=== PATIENT | male | born 1940 | race Caucasian/White ===

== ENCOUNTER 2020-11-26 10:21 | Outpatient (CLI) | payer MEDICARE, SELFPAY ==
--- NOTE | 2020-11-26 10:42 | XR_ITS ---
WS: [id number] XR hip LT 2-3V wo/w pel* [id number] REASON FOR EXAM: CHRONIC LEFT HIP PAIN FINDINGS: Overall bone density is within normal limits. No focal bone lesion. Severe narrowing of the weightbearing portion of the hip joint with subchondral sclerosis and degener ative cystic change in the subarticular femoral head and acetabulum. Significant spurring of the acet abulum. No other significant abnormality. 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
== END 2020-11-26 10:22 | disposition home or self-care (01) ==
LOC: RAD 10:37
PROVIDERS: PCP Electrodiagnostic Medicine; Visit Provider Electrodiagnostic Medicine
DX: M25.552 Pain in left hip (principal); J42 Unspecified chronic bronchitis; J20.9 Acute bronchitis, unspecified; M12.852 Other specific arthropathies, not elsewhere classified, left hip
CPT/HCPCS: 73502

== ENCOUNTER 2020-12-26 10:54 | Outpatient (CLI) | payer MEDICARE, SELFPAY ==
--- NOTE | 2020-12-26 11:11 | XR_ITS ---
WS: [id number] Exam: XR chest 2V* [id number] Date/Time of Exam: 12/26/2020 11:13 AM Reason For Exam: DYSPNEA Comparison 06/27/2018. There is cardiac enlargement with increased pulmonary vascularity. Bibasal pleural effusions are note d. No consolidating infiltrates or pneumothorax. The mediastinum is not widened. XR/XR chest 2V* [id number] IMPRESSION: 1. Cardiac enlargement with increased pulmonary vascularity and bibasal pleural effusions. Findings suggest CHF.
[2020-12-26 12:04] LABS: Basophils % 0.3 %; Eosinophils % 0.2 %; Hematocrit 53.1 % (42.0-52.0); Hemoglobin 16.5 g/dL (11.7-16.6); Lymphocytes # 0.9 10^3/uL (0.8-4.8); Lymphocytes % 14.5 %; Mean Corpuscular HGB Conc 31.1 g/dL (30.0-36.0); Mean Corpuscular Volume 93.5 fl (80-94); Mean Platelet Volume 11.8 fL (7.4-10.4); Monocytes # 0.6 10^3/uL (0.2-0.9); Monocytes % 9.8 %; Neutrophils # 4.66 10^3/uL (1.8-7.7); Nucleated Red Blood Cells % 0 %; Platelet Count 197 10^3/cmm (130-400); Red Blood Count 5.68 10^6/uL (4.1-5.3); Red Cell Distribution Width 15.4 % (12.1-15.1); White Blood Count 6.2 10^3/uL (4.0-10.0)
[2020-12-26 12:27] LABS: Alanine Aminotransferase 13 U/L (0-41); Albumin Level 3.8 g/dL (3.5-5.2); Alkaline Phosphatase 64 IU/L (40-130); Anion Gap 9.7 (5-19); Aspartate Amino Transferase 14 U/L (0-40); Blood Urea Nitrogen 17 mg/dL (8-23); Calcium 8.5 mg/dL (8.5-10.5); Carbon Dioxide 33 mmol/L (22-29); Chloride 105 mmol/L (98-107); Globulin 2.9 g/dL (1.3-4.6); Glucose 139 mg/dL (65-115); NT Pro B Type Natriuretic Pept 2242 pg/mL (0-450); Osmolality Calculated 300 mOsm/kg (285-295); Potassium 4.7 mmol/L (3.5-5.1); Sodium 143 mmol/L (136-145); Total Bilirubin 0.7 mg/dL (0.15-1.2); Total Protein 6.7 g/dL (6.6-8.7)
[2020-12-27 15:53] LABS: Alternaria Alternata (M6) Ige <0.10 kU/L; Alternaria Class 0; Bermuda Class 0; Bermuda Grass (G2) Ige <0.10 kU/L; Cat Dander (E1) Ige <0.10 kU/L; Cat Dander Class 0; Common Ragweed (Short) (W1) Ig <0.10 kU/L; D. Farinae Class 0; Dermatophagoides Class 0/1; Dermatophagoides Farinae (D2) <0.10 kU/L; Dermatophagoides Pteronyssinus 0.12 kU/L; Dog Dander (E5) Ige <0.10 kU/L; Dog Dander Class 0; Elm (T8) Ige <0.10 kU/L; Elm Class 0; English Plantain (W9) Ige <0.10 kU/L; English Plantain Class 0; House Dust (Greer) (H1) Ige <0.10 kU/L; House Dust (Hollister- Stier) <0.10 kU/L; House Dust Class 0; Immunoglobulin E 390 kU/L (<OR=114); Immunoglobulin E 409 kU/L (<OR=114); Johnson Grass (G10) Ige <0.10 kU/L; Johnson Grass Cl 0; June Grass Class 0; June Grass(Kentucky Blue) (G8) <0.10 kU/L; Lamb'S Quarters (Goose Foot) <0.10 kU/L; Lamb'S Quarters Class 0; Maple (Box Elder) (T1) Ige <0.10 kU/L; Maple Class 0; Meadow Fescue (G4) Ige <0.10 kU/L; Meadow Fescue Class 0; Mucor Racemosus Class 0; Oak (T7) Ige <0.10 kU/L; Oak Class 0; Orchard Grass (Cocksfoot) (G3) <0.10 kU/L; Penicillium Class 0; Penicillium Notatum (M1) Ige <0.10 kU/L; Perennial Rye Grass (G5) Ige <0.10 kU/L; Perennial Rye Grass Class 0; Ragweeed Class 0; Rough Marsh Elder (W16) Ige <0.10 kU/L; Rough Marsh Elder Class 0; Sweet Vernal Class 1; Sweet Vernal Grass (G1) Ige 0.37 kU/L; Timothy Grass (G6) Ige <0.10 kU/L; Timothy Grass Class 0
[2020-12-30 18:22] LABS: Aspergillus Fumigatus, Igg Ab, 7.7 mg/L (<=102)
== END 2020-12-26 10:55 | disposition home or self-care (01) ==
LOC: RAD 11:07
PROVIDERS: PCP Electrodiagnostic Medicine; Visit Provider Internal Medicine Pulmonary Disease
DX: J40 Bronchitis, not specified as acute or chronic (principal); R06.00 Dyspnea, unspecified; R22.43 Localized swelling, mass and lump, lower limb, bilateral; R06.02 Shortness of breath; I51.7 Cardiomegaly
CPT/HCPCS: 36415; 71046; 80053; 82785; 83880; 85025; 86003

== ENCOUNTER 2022-02-17 14:24 | Emergency (ER) | payer OTHER, MEDICARE, SELFPAY ==
[2022-02-17 14:30] VITALS: PULSE 100; RESP 20; TEMP 36.7; O2SAT 92; BMI 36.5
[2022-02-17 15:11] LABS: Basophils % 0.4 %; Eosinophils % 0.3 %; Hemoglobin 14.2 g/dL (11.7-16.6); Lymphocytes # 1.6 10^3/uL (0.8-4.8); Lymphocytes % 20.9 %; Mean Corpuscular HGB Conc 32.3 g/dL (30.0-36.0); Mean Corpuscular Hemoglobin 31.7 pg (28.0-34.0); Mean Corpuscular Volume 98.2 fl (80-94); Monocytes # 0.6 10^3/uL (0.2-0.9); Monocytes % 7.5 %; Neutrophils # 5.42 10^3/uL (1.8-7.7); Neutrophils % 70.3 %; Nucleated Red Blood Cells % 0 %; Platelet Count 227 10^3/cmm (130-400); Red Blood Count 4.48 10^6/uL (4.1-5.3); Red Cell Distribution Width 12.6 % (12.1-15.1); White Blood Count 7.7 10^3/uL (4.0-10.0)
[2022-02-17 15:33] LABS: Alanine Aminotransferase 21 U/L (0-41); Albumin Level 3.8 g/dL (3.5-5.2); Alkaline Phosphatase 59 U/L (40-130); Anion Gap 17.3 (5-19); Aspartate Amino Transferase 16 U/L (0-40); Blood Urea Nitrogen 45 mg/dL (8-23); Calcium 10.4 mg/dL (8.5-10.5); Carbon Dioxide 23 mmol/L (22-29); Chloride 102 mmol/L (98-107); Globulin 3.9 g/dL (1.3-4.6); Glucose 126 mg/dL (65-115); Osmolality Calculated 295 mOsm/kg (285-295); Potassium 6.3 mmol/L (3.5-5.1); Sodium 136 mmol/L (136-145); Total Bilirubin 0.5 mg/dL (0.15-1.2); Total Protein 7.7 g/dL (6.6-8.7)
== END 2022-02-17 16:00 | disposition left against medical advice (07) ==
LOC: ER 14:36
PROVIDERS: Emergency Provider Family Medicine; PCP Electrodiagnostic Medicine
DX: Z53.21 Procedure and treatment not carried out due to patient leaving prior to being seen by health care provider (principal)
CPT/HCPCS: 36415; 80053; 85025; 99284

== ENCOUNTER 2022-02-18 13:41 | Emergency (ER) | payer OTHER, SELFPAY ==
[2022-02-18 13:50] VITALS: BP 101/59; PULSE 87; RESP 16; TEMP 36.4; O2SAT 97; BMI 36.8
--- NOTE | 2022-02-18 14:00 | ECG_ITS ---
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 Measurements Intervals [place] Rate: 79 P: [place]: QRS: 116 QRSD: 87 T: 16 QT: 345 QTc: 396 Interpretive Statements ATRIAL FIBRILLATION POSSIBLE RIGHT VENTRICULAR HYPERTROPHY [SOME/ALL OF: PROMINENT R IN V1, LATE TRANSITION, RAD, PAULO, SSS] SEPTAL MYOCARDIAL INFARCTION , OF INDETERMINATE AGE [40+ ms Q WAVE IN V1/V2] No previous ECG available for comparison Electronically Signed On 02-18-2022 22:43:37 CDT by Mahnaz Spears M.D. [id number]
[2022-02-18 14:16] VITALS: BP 132/68; PULSE 85; RESP 16; O2SAT 98
[2022-02-18 14:35] LABS: Basophils % 0.2 %; Eosinophils % 0.1 %; Hematocrit 42.2 % (42.0-52.0); Hemoglobin 13.8 g/dL (11.7-16.6); Lymphocytes # 1.4 10^3/uL (0.8-4.8); Mean Corpuscular HGB Conc 32.7 g/dL (30.0-36.0); Mean Corpuscular Hemoglobin 32.1 pg (28.0-34.0); Mean Corpuscular Volume 98.1 fl (80-94); Mean Platelet Volume 12.1 fL (7.4-10.4); Monocytes # 0.7 10^3/uL (0.2-0.9); Monocytes % 7.5 %; Neutrophils # 6.89 10^3/uL (1.8-7.7); Neutrophils % 76.6 %; Nucleated Red Blood Cells % 0 %; Platelet Count 228 10^3/cmm (130-400); Red Cell Distribution Width 12.7 % (12.1-15.1)
--- NOTE | 2022-02-18 14:38 | ED_ITS ---
HPI - Recheck/Abnormal Lab/Rx General: Chief Complaint: Recheck/Abnormal Lab/Rx Stated Complaint: High Potassium Time Seen by Provider: 02/18/22 14:12 Source: patient Mode of arrival: ambulatory Limitations: other (hard of hearing) History of Present Illness: See nursing assessment. Patient states that he was told to come back to the hospital to get his lab redrawn. Reportedly [facility] stated that his potassium was 5.7 and was sent to the emergency room yesterday. He had blood redrawn yesterday and had a potassium value of around 6. Patient left before knowing the results and was told to come back to the hospital for recheck. Patient arrived this afternoon for recheck. Patient denies any medical problems. He states he feels fine has no complaints of pain or shortness of breath. Denies any chest pain. Denies any fatigue. He is hard of hearing and forgot his hearing aids. Review of Systems Const: Denies: fever(s) or chills Eyes: Denies: change in vision ENMT: Denies: throat pain Card: Denies: chest pain or palpitations Resp: Denies: dyspnea or wheezing GI: Denies: abdominal pain, nausea or vomiting : Denies: flank pain Musc: Denies: neck pain or back pain Skin/Breast: Denies: rash or pruritus Neuro: Denies: headache(s) or numbness in extremities Psych: Denies: anxiety Alvaro/Lymph: Denies: enlarged lymph nodes [facility] ED PFSH: Social History Smoking and tobacco status: never smoked Second hand smoke exposure: Yes (smoked marijuana a few times in service) Alcohol intake: former Physical Exam Const: COMMON NORMALS: no acute distress, patient oriented x3, alert and well nourished GENERAL APPEARANCE: cooperative HENMT: COMMON NORMALS: normocephalic and atraumatic HEAD & SCALP: normocephalic and atraumatic Eye: COMMON NORMALS: EOMs intact bilaterally Neck/C-Spine: COMMON NORMALS: full ROM, no lymphadenopathy, supple and no JVD Lymph: LYMPHATIC: no lymphadenopathy noted Chest: COMMONS NORMALS: normal inspection of the chest and normal palpation of entire chest wall Resp: COMMON NORMALS: normal respiratory effort, No retractions, No use of accessory muscles and clear to auscultation bilaterally AUSCULTATION: clear to auscultation bilaterally Cardio: COMMON NORMALS: no JVD, regular rate, regular rhythm and Peripheral pulses 2+ throughout RATE: regular rate RHYTHM: regular rhythm PERIPHERAL PULSES: Peripheral pulses 2+ throughout GI: COMMON NORMALS: Normal to inspection, nondistended, normoactive bowel sounds present, Soft to palpation and non-tender PALPATION: Yes Soft to palpation OTHER: Obese : COMMON NORMALS: Yes no CVA tenderness BLADDER/KIDNEY EXAM: Yes no CVA tenderness Back/Pelvis: COMMON NORMALS: no CVA tenderness Extremity: COMMON NORMALS: normal to inspection and full ROM Neuro: COMMON NORMALS: patient oriented x3, CN's II-XII intact bilaterally, moves all extremities, no focal motor deficits and no sensory deficits noted SENSORIUM/ORIENTATION: Yes alert Psych: COMMON NORMALS: mental status grossly normal, Normal thought process present, cooperative, normal affect and speech normal SPEECH: Yes normal speech THOUGHT PROCESS: Normal thought process present Skin: COMMON NORMALS: no rashes or lesions noted GENERAL SKIN EXAM: no rashes or lesions noted Course Vital Signs: Vital signs: Vital Signs Temperature 97.6 F 02/18/22 13:50 Pulse Rate 85 02/18/22 14:16 Respiratory Rate 16 02/18/22 14:16 Blood Pressure 132/68 02/18/22 14:16 Pulse Oximetry 98 02/18/22 14:16 Oxygen Delivery Me thod 02/18/22 13:50 MDM - Recheck/Abnormal Lab/Rx Medical Decision Making Hyperkalemia. Patient states he was taking potassium supplements up until 2 days ago when he was told to discontinue these. He did have elevated BUN and creatinine yesterday which is different from his December 2020 lab work where he had normal renal function. Discussed with patient results of his laboratory values. Will have patient hold his spironolactone for 2 days. I encouraged him to drink water for the next couple days. Lab Data : 02/18/22 14:27 02/18/22 14:27 Laboratory Results WBC 9.0 10^3/uL (4.0-10.0) 02/18/22 14:27 RBC 4.30 10^6/uL (4.1-5.3) 02/18/22 14:27 Hgb 13.8 g/dL (11.7-16.6) 02/18/22 14: Hct 42.2 % (42.0-52.0) 02/18/22 14: MCV 98.1 fl (80-94) H 02/18/22 14: MCH 32.1 pg (28.0-34.0) 02/18/22 14: MCHC 32.7 g/dL (30.0-36.0) 02/18/22 14: RDW 12.7 % (12.1-15.1) 02/18/22 14: Plt Count 228 10^3/cmm (130-400) 02/18/22 14: MPV 12.1 fL (7.4-10.4) H 02/18/22 14: Neut % (Auto) 76.6 % 02/18/22 14: Lymph % (Auto) 15.0 % 02/18/22 14: [place] % (Auto) 7.5 % 02/18/22 14: Eos % (Auto) 0.1 % 02/18/22 14: Baso % (Auto) 0.2 % 02/18/22 14: Neut # (Auto) 6.89 10^3/uL (1.8-7.7) 02/18/22 14: Lymph # (Auto) 1.4 10^3/uL (0.8-4.8) 02/18/22 14: [place] # (Auto) 0.7 10^3/uL (0.2-0.9) 02/18/22 14: Eos # (Auto) 0.0 10^3/uL (0.0-0.8) 02/18/22 14: Baso # (Auto) 0.0 10^3/uL (0.0-0.1) 02/18/22 14: Nucleated RBC % (auto) 0 % 02/18/22: Nucleated RBCs # 0.0 /100WBC 02/18/22 14:27 Sodium 136 mmol/L (136-145) 02/18/22 14: Potassium 5.3 mmol/L (3.5-5.1) H 02/18/22 14: Chloride 101 mmol/L (98-107) 02/18/22 14:27 Carbon Dioxide 23 mmol/L (22-29) 02/18/22 14:27 Anion Gap 17.3 (5-19) 02/18/22 14:27 BUN 47 mg/dL (8-23) H 02/18/22 14:27 Creatinine 1.7 mg/dL (0.7-1.2) H 02/18/22 14:27 GFR Calculation Not Reportable 02/18/22 14:27 Glucose 128 mg/dL (65-115) H 02/18/22 14:27 Calculated Osmolality 296 mOsm/kg (285-295) H 02/18/22 14:27 Calcium 10.0 mg/dL (8.5-10.5) 02/18/22 14:27 EKG Data EKG 1: I personally reviewed and interpreted this EKG as follows: EKG interpretation date: 02/18/22 EKG interpretation time: 14:20 Interpretation: EKG shows atrial fibrillation with rate controlled at 79. Rightward axis. Nonspecific ST-T changes. Normal QRS. Impression atrial fibrillation with rate control. Discharge Plan Discharge Patient Disposition: Home Clinical Impression: Chronic hyperkalemia Condition: Stable Prescriptions: No Action albuterol sulfate [Ventolin HFA] 90 mcg/actuation HFA aerosol inhaler 2 puff inhalation Q6H PRN (Reason: Shortness Of Breath Or Wheezing) metoprolol tartrate 50 mg tablet 50 mg PO BID tizanidine 4 mg tablet 4 mg PO TID PRN (Reason: Muscle Spasm) Saccharomyces boulardii [Daily Probiotic (S. boulardii)] 250 mg capsule 250 mg PO BID lovastatin 40 mg tablet 40 mg PO DAILY finasteride 5 mg tablet 5 mg PO DAILY budesonide-formoterol [Symbicort] 80-4.5 mcg/actuation HFA aerosol inhaler 2 puff inhalation BID Qty: 10.2 3RF furosemide 40 mg tablet 40 mg PO DAILY Aspir-81 81 mg Tablet,Delayed Release (Dr/Ec) 81 mg PO DAILY amlodipine 10 mg tablet 10 mg PO DAILY valsartan 320 mg tablet 320 mg PO DAILY naproxen 500 mg Tablet 500 mg PO BID PRN (Reason: Pain) spironolactone 50 mg tablet 50 mg PO DAILY Discharge Orders: Discharge ED (Routine); Ordered 02/18/22 Ordered By: Fabrice Ruiz Referrals: Thad Zaragoza, [Primary Care Provider] - 1-3 days Discharge Diet: Advance as tolerated Discharge Activity: Resume usual activity Patient Instructions: Chronic Kidney Disease (ED), Hyperkalemia (ED) Activity Restrictions/Additional Instructions: Your potassium was only slightly elevated. You will need to drink more water for the next 2 days. Hold the spironolactone medication for 2 days. Follow-up with your family doctor later this week for recheck of your potassium level. Avoid any potassium supplements or high potassium foods. Coding Level of Care Code ED Oil Well Driller for Chg Fwd Exam Comprehensive
[2022-02-18 14:59] LABS: Anion Gap 17.3 (5-19); Blood Urea Nitrogen 47 mg/dL (8-23); Carbon Dioxide 23 mmol/L (22-29); Chloride 101 mmol/L (98-107); Glucose 128 mg/dL (65-115); Osmolality Calculated 296 mOsm/kg (285-295); Potassium 5.3 mmol/L (3.5-5.1); Sodium 136 mmol/L (136-145)
--- NOTE | 2022-02-18 15:26 | PC.PHAR ---
PT HARD OF HEARING- UNABLE TO VERIFY MEDS- VERIFIED USING [facility], EXTERNAL MED LIST AND CALLING [facility]- PT BROUGHT IN NOTE STATING TO STOP TAKING POTASSIUM AND LOSARTAN, WAS UNABLE TO FIND THAT HE EVER HAD LOSARTAN
[2022-02-18 15:55] VITALS: BP 132/70; PULSE 77
== END 2022-02-18 15:57 | disposition home or self-care (01) ==
PROVIDERS: Emergency Medicine; Emergency Provider Family Medicine; PCP Electrodiagnostic Medicine
DX: E87.5 Hyperkalemia (principal); Z79.82 Long term (current) use of aspirin
CPT/HCPCS: 80048; 85025; 93005; 99284

== ENCOUNTER → 2022-04-08 12:31 | Outpatient (BNVA) | payer OTHER, SELFPAY | PROVIDERS: PCP Family Medicine; Visit Provider Internal Medicine | DX: R06.00 Dyspnea, unspecified (principal); I48.91 Unspecified atrial fibrillation; R22.43 Localized swelling, mass and lump, lower limb, bilateral; I27.20 Pulmonary hypertension, unspecified; I35.0 Nonrheumatic aortic (valve) stenosis | CPT/HCPCS: 80048; 83880; 85025; 99214 ==

== ENCOUNTER → 2022-05-05 09:57 | Outpatient (BNVA) | payer OTHER, SELFPAY | PROVIDERS: PCP Family Medicine; Visit Provider Orthopaedic Surgery | DX: M25.552 Pain in left hip (principal) | CPT/HCPCS: 73502; 99213 ==

== ENCOUNTER 2022-05-11 12:58 | Outpatient (CLI) | payer OTHER, SELFPAY ==
--- NOTE | 2022-05-11 13:45 | USCV_ITS ---
Yuri Joe Age: 82 Gender: M : 1940 Exam Date: 05/11/2022 13:53 Ordering Phys: Joey Courtney M.D ([email or web address]) Technologist: George Ying Exam Location: [facility] [place] Indication: dyspnea BP: 84 / 50 HR: Rhythm: Sinus Technical Quality: Technically difficult study MEASUREMENTS (Male / Female) Normal Values 2D ECHO LV Ejection Fraction MOD 2C 64.5 % LV Ejection Fraction 2C AL 63.2 % LA Diameter 5.1 cm LA Width 3.9 cm LA Height 5.9 cm RA Width 4.1 cm RA Height 6.3 cm IVC Diameter 1.5 cm M-MODE MV E Point Septal Separation 0.6 cm DOPPLER AV Peak Velocity 428.4 cm/s LVOT Peak Velocity 78.0 cm/s MV Peak Velocity 97.0 cm/s MV Area PHT 6.3 cm squared Mitral E to A Ratio 2.2 MV E' Velocity 41.0 cm/s Mitral E to MV E' Ratio 6.3 Mitral E to LV E' Lateral Ratio 7.2 Mitral E to LV E' Septal Ratio 5.7 TR Peak Velocity 408.5 cm/s TR Peak Gradient 66.7 mmHg TR Mean Velocity 331.1 cm/s TR Mean Gradient 45.4 mmHg TR Velocity Time Integral 100.7 cm Right Atrial Pressure 3.0 mmHg Pulmonary Artery Systolic Pressu 69.7 mmHg PV Peak Velocity 101.0 cm/s RV Acceleration Time 0.1 s RV Ejection Time 0.4 s RV AcT/ET 0.1 FINDINGS Left Ventricle Technically limited quality echocardiogram because of poor ultrasonic windows. Grossly LV systolic function is normal. Regional wall motion abnormalities cannot be assessed because of poor ultrasonic windows. Right Ventricle Grossly normal Right Atrium normal in size Left Atrium Dilated Mitral Valve Grossly normal. Mild mitral regurgitation. Aortic Valve Not well visualized. Mean gradient across aortic valve is 35mmHg. This is consistent with moderate aortic stenosis. Tricuspid Valve Not well visualized Pulmonic Valve Not visualized Pericardium Grossly normal Aorta Normal in size IVC Not visualized CONCLUSIONS Technically limited quality echocardiogram because of poor ultrasonic windows. Grossly LV systolic function is normal. Regional wall motion abnormalities cannot be assessed because of poor ultrasonic windows. Moderate aortic stenosis with a mean gradient across aortic valve of 35 mmHg Mild mitral regurgitation Valvular structures are not well-visualized No comparison studies are available. Will recommend limited echo with contrast to better assess LV systolic function and regional wall motion abnormalities. Joey Courtney MD (Electronically Signed) Final Date: 18 May 2022 11:02 S
== END 2022-05-11 12:59 | disposition home or self-care (01) ==
LOC: RAD 13:02
PROVIDERS: PCP Family Medicine; Visit Provider Internal Medicine
DX: R06.00 Dyspnea, unspecified (principal); I35.0 Nonrheumatic aortic (valve) stenosis; I34.0 Nonrheumatic mitral (valve) insufficiency
CPT/HCPCS: 93306

== ENCOUNTER → 2022-06-23 08:33 | Outpatient (BNVA) | payer OTHER, SELFPAY | PROVIDERS: PCP Family Medicine; Visit Provider Anesthesiology Pain Medicine | DX: M79.604 Pain in right leg; M79.605 Pain in left leg; M25.552 Pain in left hip | CPT/HCPCS: 99204 ==

== ENCOUNTER 2022-09-30 11:52 | Inpatient (IN) | payer OTHER, MEDICARE, SELFPAY ==
[2022-09-30] VITALS (7 sets, daily range): BP systolic 105–127; BP diastolic 70–81; PULSE 55–109; RESP 16–22; TEMP 36.6–36.7; O2SAT 90–93; BMI 28.1
--- NOTE | 2022-09-30 12:02 | ECG_ITS ---
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 Measurements Intervals [place] Rate: 109 P: 0 ME: 0 QRS: 130 QRSD: 93 T: 33 QT: 331 QTc: 446 Interpretive Statements ATRIAL FIBRILLATION WITH RAPID VENTRICULAR RESPONSE INCOMPLETE RIGHT BUNDLE BRANCH BLOCK [90+ ms QRS DURATION, TERMINAL R IN V1/V2, 40+ ms S IN I/aVL/V4/V5/V6] POSSIBLE RIGHT VENTRICULAR HYPERTROPHY [SOME/ALL OF: PROMINENT R IN V1, LATE TRANSITION, RAD, PAULO, SSS] Compared to ECG 02/18/2022 14:15:42 Incomplete right bundle-branch block now present Myocardial infarct finding no longer present Electronically Signed On 10-01-2022 7:23:48 CDT by Josephine Barrett M.D. [email or web address]eliermer[email or web address].[email or web address]/OM/[id number]
--- NOTE | 2022-09-30 12:36 | XR_ITS ---
WS: [id number] Exam: XR chest 1V portable [id number] Date/Time of Exam: 09/30/2022 12:39 PM Reason For Exam: sob Comparison 12/26/2020. The lungs are fully expanded. There is atelectasis and/or infiltrate in the right lower lobe. There i s chronic pleural thickening in the left base. The heart is enlarged but unchanged in size. The upper lung zones are clear. No pneumothorax. The mediastinum is normal in contour. Bony structures are int act. XR/XR chest 1V portable [id number] IMPRESSION: 1. Atelectasis and/or infiltrate in the right base. Right-sided pleural thicken ing. 2. Chronic pleural thickening in the left lung base. 3. Cardiac enlargement unchanged.
--- NOTE | 2022-09-30 12:39 | ED_ITS ---
HPI - SOB/Dyspnea General: Chief Complaint: Shortness of Breath/Dyspnea Stated Complaint: [facility] sent for low BP and O2 Time Seen by Provider: 09/30/22 12:18 Source: patient and family Mode of arrival: ambulatory Limitations: no limitations History of Present Illness: HPI Narrative: This patient was brought to the emergency department by his daughter. They were at the [facility] this morning and referred to the emergency department. Over the last couple of days he has had increasing shortness of breath and a bit of confusion according to daughter. He states that he is more short of breath than usual and even with limited activity he gets short winded. Denies any concomit ant chest pain or fevers. He has had a dry cough. Apparently had the symptoms on Wednesday and was seen and not found to have anything of concern on clinical exam and recommended to take Zyrtec. He is a non-smoker and lives alone. He is usually capable of taking care of his ADLs and is I ADLs. He denies any cardiac history however review of his chart reveals that he has a history of atrial fibrillation. He states he is taking his medications as prescribed. Currently wears oxygen at bedtime but cannot tell me why he does so. Daughter also reports he has bilateral leg swelling but has had that for a prolonged period of time. MD elicited complaint: shortness of breath and cough Severity: moderate Associated symptoms: Reports cough; Deny abdominal pain, chest pain, extremity pain, fever(s), nausea, palpitations or vomiting Treatment prior to arrival: none Review of Systems Const: Denies: fever(s), chills or body aches Eyes: Denies: change in vision ENMT: Denies: odynophagia, nasal discharge or nasal congestion Card: Reports: dyspnea on exertion; Denies: chest pain or palpitations Resp: Reports: dyspnea and non-productive cough; Denies: wheezing GI: Denies: abdominal pain, nausea, vomiting or diarrhea : Denies: flank pain, difficulty urinating or dysuria Musc: Reports: extremity swelling; Denies: neck pain, back pain or extremity pain Skin/Breast: Denies: rash or pruritus Neuro: Denies: headache(s), numbness in extremities or weakness in extremities Alvaro/Lymph: Reports: easy bruising [facility] ED PFSH: Social History Smoking and tobacco status: never smoked Second hand smoke exposure: No Alcohol intake: current Alcohol intake frequency: holidays/special occasions only Alcohol type: wine Substance/Drug Use: never Physical Exam Narrative: EXAM NARRATIVE: He is alert and has an intermittent cough during the evaluation. He answers most questions but does have some limited responses to other questions. Const: COMMON NORMALS: no acute distress and alert GENERAL APPEARANCE: cooperative NUTRITIONAL APPEARANCE: overweight ORIENTATION/CONSCIOUSNESS: Yes awake, Yes oriented to person and Yes oriented to place HENMT: COMMON NORMALS: normocephalic, Normal nasal mucous membranes and turbinates present, moist oral mucous membranes and oropharynx normal HEAD & SCALP: normocephalic NOSE: Normal nasal mucous membranes and turbinates present Eye: COMMON NORMALS: Equal, round and reactive pupils present, EOMs intact bilaterally, conjunctivae normal and no scleral icterus CONJUNCTIVA: Yes conjunctivae normal PUPIL: Yes Equal, round and reactive pupils present Neck/C-Spine: COMMON NORMALS: full ROM, no lymphadenopathy, no JVD and No carotid bruits Chest: COMMONS NORMALS: normal inspection of the chest Resp: COMMON NORMALS: normal respiratory effort, No retractions and No use of accessory muscles AUSCULTATION: crackles and rhonchi Cardio: COMMON NORMALS: no JVD RHYTHM: abnormal rhythm irregularly irregular HEART SOUNDS: Murmur heart sound present (3/) systolic GI: COMMON NORMALS: Normal to inspection, nondistended, normoactive bowel sounds present, Soft to palpation and non-tender INSPECTION: Yes central obesity PALPATION: Yes Soft to palpation : COMMON NORMALS: Yes no CVA tenderness BLADDER/KIDNEY EXAM: Yes no CVA tenderness Back/Pelvis: COMMON NORMALS: no CVA tenderness, thoracic and lumbar spine normal to inspection, no thoracic nor lumbar tenderness and thoraco-lumbar ROM normal Extremity: COMMON NORMALS: normal to inspection, full ROM and no calf tenderness NARRATIVE EXTREMITY EXAM: Bilateral pedal edema to mid lower legs. Neuro: COMMON NORMALS: moves all extremities, no focal motor deficits and no sensory deficits noted SENSORIUM/ORIENTATION: Yes alert, Yes oriented to person and Yes oriented to place Psych: COMMON NORMALS: mental status grossly normal Skin: COMMON NORMALS: no rashes or lesions noted, no wounds and turgor normal GENERAL SKIN EXAM: no rashes or lesions noted and turgor normal Course Reevaluation(s): Reevaluation #1: Discussed current findings with patient and daughter. Initially the patient was somewhat reluctant to be admitted to the hospital but we are eventually convinced him to stay. Appears to have right lower lobe pneumonia that is probably precipitated and made his atrial fib and chronic heart failure worse as well with a slight elevation in troponin concomitant with that. No evidence of ACS or ongoing ischemia at this time. Time: 15:07 Consultations: Consultation #1: Discussed with Dr. Trejo who agreed to the admission. He asked that I get a noncontrast CT to better delineate his pulmonology pathology. Time: 15:11 Vital Signs: Vital signs: Vital Signs Temperature 97.9 F 09/30/22 11:56 Pulse Rate 94 09/30/22 14:19 Respiratory Rate 18 09/30/22 14:19 Blood Pressure 123/81 09/30/22 14:19 Pulse Oximetry 93 09/30/22 14:19 Oxygen Delivery Me thod Nasal Cannula 09/30/22 14:19 Oxygen Flow Rate 4 09/30/22 14:19 MDM - SOB/Dyspnea Medical Decision Making 82-year-old gentleman brought by his daughter with a history of several days of cough and intermittent confusion that is collaborated by his daughter. He has a history of atrial fibs as well as mild congestive heart failure and apparently has medications consistent with those diagnoses. He apparently also wears nighttime oxygen for unknown reason. Clinical examination revealed him to be alert but a little bit confused as to current events. O2 saturation was noted per nursing notes and corrects easily with supplemental O2. His chest reveals bilateral rhonchi consistent with possible pulmonary infection versus CHF. Work-up ensued that revealed right lower lobe infiltrate with elevation in proBNP as well as a slight elevation of troponin consistent with likely due to his acute illness putting additional strain on his cardiovascular system. Unlikely to be ACS PE or other pulmonary condition at this time. Plan will be to admit for IV antibiotics, echocardiogram potentially and other testing to better delineate his cardiovascular status. Patient initially was reluctant but eventually acquiesced and agreed to admission. Medical Records I reviewed the patient's medical records. Lab Data I reviewed the patient's lab results. 09/30/22 12:18 09/30/22 12:18 Labs/Radiology: Radiology Impressions Chest X-Ray 09/30/22 12:36 IMPRESSION: 1. Atelectasis and/or infiltrate in the right base. Right-sided pleural thickening. 2. Chronic pleural thickening in the left lung base. 3. Cardiac enlargement unchanged. Laboratory Results WBC 11.2 10^3/uL (4.0-10.0) H 09/30/22 12:18 RBC 4.63 10^6/uL (4.1-5.3) 09/30/22 12:18 Hgb 13.6 g/dL (11.7-16.6) 09/30/22 12:18 Hct 42.7 % (42.0-52.0) 09/30/22 12:18 MCV 92.2 fl (80-94) 09/30/22 12:18 MCH 29.4 pg (28.0-34.0) 09/30/22 12:18 MCHC 31.9 g/dL (30.0-36.0) 09/30/22 12:18 RDW 13.6 % (12.1-15.1) 09/30/22 12:18 Plt Count 237 10^3/cmm (130-400) 09/30/22 12:18 MPV 12.1 fL (7.4-10.4) H 09/30/22 12:18 Neut % (Auto) 84.3 % 09/30/22 12:18 Lymph % (Auto) 6.7 % 09/30/22 12:18 [place] % (Auto) 7.1 % 09/30/22 12:18 Eos % (Auto) 0.0 % 09/30/22 12:18 Baso % (Auto) 0.3 % 09/30/22 12:18 Neut # (Auto) 9.45 10^3/uL (1.8-7.7) H 09/30/22 12:18 Lymph # (Auto) 0.8 10^3/uL (0.8-4.8) 09/30/22 12:18 [place] # (Auto) 0.8 10^3/uL (0.2-0.9) 09/30/22 12:18 Eos # (Auto) 0.0 10^3/uL (0.0-0.8) 09/30/22 12:18 Baso # (Auto) 0.0 10^3/uL (0.0-0.1) 09/30/22 12:18 Nucleated RBC % (auto) 0 % 09/30/22 12:18 Nucleated RBCs # 0.0 /100WBC 09/30/22 12:18 Sodium 136 mmol/L (136-145) 09/30/22 12:18 Potassium 4.7 mmol/L (3.5-5.1) 09/30/22 12:18 Chloride 100 mmol/L (98-107) 09/30/22 12:18 Carbon Dioxide 28 mmol/L (22-29) 09/30/22 12:18 Anion Gap 12.7 (5-19) 09/30/22 12:18 BUN 24 mg/dL (8-23) H 09/30/22 12:18 Creatinine 1.1 mg/dL (0.7-1.2) 09/30/22 12:18 GFR Calculation Not Reportable 09/30/22 12:18 Glucose 123 mg/dL (65-115) H 09/30/22 12:18 Calculated Osmolality 287 mOsm/kg (285-295) 09/30/22 12:18 Calcium 8.9 mg/dL (8.5-10.5) 09/30/22 12:18 Total Bilirubin 0.8 mg/dL (0.15-1.2) 09/30/22 12:18 AST 31 U/L (0-40) 09/30/22 12:18 ALT 38 U/L (0-41) 09/30/22 12:18 Alkaline Phosphatase 51 U/L (40-130) 09/30/22 12:18 Troponin T Baseline 35 ng/L (0-15) H 09/30/22 12:18 NT-Pro-B Natriuret Pep 2875 pg/mL (0-450) H 09/30/22 12:18 Total Protein 7.0 g/dL (6.6-8.7) 09/30/22 12:18 Albumin 3.2 g/dL (3.5-5.2) L 09/30/22 12:18 Globulin 3.8 g/dL (1.3-4.6) 09/30/22 12:18 TSH 1.36 uIU/mL (0.27-4.20) 09/30/22 12:18 SARS-CoV-2 Ag (Rapid) negative (Negative) 09/30/22 12:48 EKG Data EKG 1: I personally reviewed and interpreted this EKG as follows: Interpretation: Contemporaneous review of resting EKG reveals ventricular rate of 109 bpm consistent with atrial fibrillation with a rapid ventricular response. QRS duration is normal. Corrected QT intervals normal. No acute ST-T wave changes noted at this time. Discharge Plan Discharge Patient Disposition: Admitted As Inpatient Clinical Impression: Right lower lobe pneumonia, Atrial fibrillation, Congestive heart failure Condition: Stable Prescriptions: No Action finasteride 5 mg tablet 5 mg PO DAILY Claritin 10 mg Tablet 10 mg PO DAILY Eliquis 5 mg tablet 5 mg PO QAM furosemide 40 mg tablet 20 - 40 mg PO DAILY spironolactone 50 mg tablet 50 mg PO DAILY Referrals: Nell Mendez MD [Primary Care Provider] - Coding Level of Care Code ED Automobile Service Advisor for Chg Rylee
[2022-09-30 12:52] LABS: Basophils % 0.3 %; Hematocrit 42.7 % (42.0-52.0); Hemoglobin 13.6 g/dL (11.7-16.6); Lymphocytes # 0.8 10^3/uL (0.8-4.8); Lymphocytes % 6.7 %; Mean Corpuscular HGB Conc 31.9 g/dL (30.0-36.0); Mean Corpuscular Hemoglobin 29.4 pg (28.0-34.0); Mean Corpuscular Volume 92.2 fl (80-94); Mean Platelet Volume 12.1 fL (7.4-10.4); Monocytes # 0.8 10^3/uL (0.2-0.9); Monocytes % 7.1 %; Neutrophils # 9.45 10^3/uL (1.8-7.7); Neutrophils % 84.3 %; Nucleated Red Blood Cells % 0 %; Platelet Count 237 10^3/cmm (130-400); Red Blood Count 4.63 10^6/uL (4.1-5.3); Red Cell Distribution Width 13.6 % (12.1-15.1); White Blood Count 11.2 10^3/uL (4.0-10.0)
[2022-09-30] MEDS: FUROsemide 10 mg/mL SDV 4mL 40 MG IVP (12:55)
[2022-09-30 13:03] LABS: Troponin(5th) Baseline 35 ng/L (0-15)
[2022-09-30 13:11] LABS: Alanine Aminotransferase 38 U/L (0-41); Albumin Level 3.2 g/dL (3.5-5.2); Alkaline Phosphatase 51 U/L (40-130); Anion Gap 12.7 (5-19); Aspartate Amino Transferase 31 U/L (0-40); Blood Urea Nitrogen 24 mg/dL (8-23); Calcium 8.9 mg/dL (8.5-10.5); Carbon Dioxide 28 mmol/L (22-29); Chloride 100 mmol/L (98-107); Globulin 3.8 g/dL (1.3-4.6); Glucose 123 mg/dL (65-115); NT Pro B Type Natriuretic Pept 2875 pg/mL (0-450); Osmolality Calculated 287 mOsm/kg (285-295); Potassium 4.7 mmol/L (3.5-5.1); Sodium 136 mmol/L (136-145); Thyroid Stimulating Hormone 1.36 uIU/mL (0.27-4.20); Total Bilirubin 0.8 mg/dL (0.15-1.2)
[2022-09-30 13:30] LABS: SARS Covid-2 Antigen negative (Negative)
--- NOTE | 2022-09-30 14:37 | ECG_ITS ---
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 Measurements Intervals [place] Rate: 116 P: 0 RI: 0 QRS: 133 QRSD: 93 T: 56 QT: 305 QTc: 425 Interpretive Statements ATRIAL FIBRILLATION WITH RAPID VENTRICULAR RESPONSE INCOMPLETE RIGHT BUNDLE BRANCH BLOCK [90+ ms QRS DURATION, TERMINAL R IN V1/V2, 40+ ms S IN I/aVL/V4/V5/V6] RIGHT VENTRICULAR HYPERTROPHY [SOME/ALL OF: PROMINENT R IN V1, LATE TRANSITION, RAD, PAULO, SSS] Compared to ECG 09/30/2022 12:26:39 No significant changes Electronically Signed On 10-01-2022 7:26:26 CDT by Josephine Barrett M.D. [id number]
--- NOTE | 2022-09-30 14:53 | PC.PHAR ---
pt and pts family states the pt takes care of his own medications-pt had one pill of lasix 40mg in a bottle of finasteride pt also had alot of lasix 20mg tabs in the finasteride bottle- [facility] last filled 40mg tabs on 01/13/22 but states never filled 20mg for the tabs- medication not on [facility] med list as a va med but pt states takes daily- requested medication be entered even tho medication wasnt in original medication bottles-pt brought in medication bottles for eliquis 5mg bid 04/14/22 and 2.5mg bid dated 03/18/[address] changed to 5mg po qam but had no bottle with those directions-pt states he is still taking finasteride 5mg daily rx bottle was dated 04/27/22 90d/s pt had 2 tabs in the bottle-pt states he is no longer taking amlodipine 10mg daily rx bottle dated 07/13/22 90d/s-pts va med list had crestor 20mg take 10mg qpm pt states he is not taking-pt states he no longer has any kind of inhalers-ext med history shows last filled 12/27/20 symbicort 80-4.5mg 2p bid and ventolin hfa 2p q6h prn filled 04/23/22-pts va med list has zinc oxide ointment pt states he isnt using any creams-notes are made in the pharmacy comments
[2022-09-30 15:11] LABS: Troponin 5 2HR 37.77 ng/L (0-15)
--- NOTE | 2022-09-30 15:14 | CTR_ITS ---
PROCEDURE INFORMATION: Exam: CT Chest Without Contrast; Diagnostic Exam date and time: 09/30/2022 3:48 PM Age: 82 years old Clinical indication: Other: Rll infiltrative process; Additional info: Right lower lobe infiltrative process TECHNIQUE: Imaging protocol: Diagnostic computed tomography of the chest without contrast. Radiation optimization: All CT scans at this facility use at least one of these dose optimization techniques: automated exposure control; mA and/or kV adjustment per patient size (includes targeted exams where dose is matched to clinical indication); or iterative reconstruction. REPORTING DATA: Count of CT and Cardiac NM exams in prior 12 months: This patient has received 0 known CTs and 0 known cardiac nuclear medicine studies in the 12 months prior to the current study. COMPARISON: CR XR chest 1V portable [id number] 09/30/2022 12:42 PM RADIATION DOSE METRICS: Total DLP (mGy-cm): 653.57 FINDINGS: Limitations: Study is significantly limited due to motion artifact most pronounced within the lower lung zones. Lungs: There is prominent pericardial in subpleural fat at the lung bases more pronounced on the right contributing to scattered subsegmental atelectasis at the right lung there are scattered indistinct interstitial and peribronchial micronodular opacities lower lobes more pronounced on the right some which is likely infectious secondary to bronchiolitis. There is also a 2.5 x 1.5 cm irregular lobulated soft tissue density at the right lung base more nonspecific in may represent rounded atelectasis, rounded pneumonia or neoplasm. Upper lung zones are relatively clear. Pleural spaces: Unremarkable. No pneumothorax. No pleural effusion. Heart: Heart is at least mildly enlarged. Moderate calcification of coronary arteries. No significant pericardial effusion. Lymph nodes: Scattered small mediastinal lymph nodes measuring up to 1.4 cm, nonspecific. Vasculature: Scattered atherosclerotic changes of the thoracic aorta. No aortic aneurysm. Bones/joints: Diffuse bony changes of the thoracic spine with smooth bridging syndesmophytes consistent with ankylosing spondylitis. Deformity of the right left ribcage is secondary to old healed fractures. Soft tissues: Right lateral abdominal wall hernia within the upper abdomen containing bowel loops partially visualized. Rounded circumscribed soft tissue density partially visualized and may be arising from the right kidney difficult to further characterize but not consistent with a simple cyst. CT/CT chest wo con [id number] IMPRESSION: 1. Bibasilar subsegmental atelectasis more pronounced on the right in part secondary to prominent subpleural and epicardial fat. 2. Scattered lower lobe interstitial infiltrates more pronounced on the right likely infectious in nature. 3. 2.5 x 1.5 cm lobulated soft tissue density right lung base, nonspecific as discussed above. Recommend a repeat CT chest in 4-6 weeks for further assessment. 4. Small right renal lesion partially visualized difficult to further characterize and better assessed on contrast CT exam of the abdomen or renal ultrasound. 5. Additional nonemergent findings as above.
[2022-09-30 15:15] LABS: Troponin 5 2HR Delta 2.77 ABS# (0-10)
--- NOTE | 2022-09-30 15:39 | PM.HP ---
Providers/Chief Complaint Primary Care Provider: Nell Mendez MD Chief Complaint: [facility] sent for low BP and O2 History of Present Illness Yuri Joe is a 82 year old male with past medical history of atrial fibrillation on chronic anticoagulation with Eliquis, moderate aortic stenosis, moderate pulmonary hypertension with RV dysfunction, hypertension presents to the ER today from [place] clinic for difficulty in breathing, dyspnea on exertion along with cough which has been getting worse since Wednesday. Today is Wednesday. He has been having subjective feeling of fever. Usually patient is able to take care of his ADLs by himself but currently is not able to do so because of difficulty in breathing. Patient is hard of hearing. Denies any nausea, vomiting, headache or any sick contacts. Review of Systems General: Reports: 10 or more systems reviewed and unremarkable except in HPI and below Const: Denies: fever(s), chills, body aches, change in appetite, change in weight, malaise, night sweats, diaphoresis, change in sleep pattern, daytime sleepiness or snoring Eyes: Denies: change in vision, blurry vision, photophobia, eye discomfort or eye discharge ENMT: Denies: throat pain, enlarged tonsils, hoarseness, mouth pain, oral sores, dry mouth, tinnitus, nasal congestion or post nasal drip Card: Denies: chest pain, palpitations, irregular heart rhythm, edema, swelling of feet/ankles, lightheadedness, syncope, pre-syncope, dyspnea on exertion, orthopnea, leg pain with exertion or acrocyanosis Resp: Denies: dyspnea, productive cough, non-productive cough, wheezing, stridor, pain on inspiration, change in phlegm color, hemoptysis or chest congestion GI: Denies: abdominal pain, nausea, vomiting, hematemesis, coffee ground emesis, dysphagia, heartburn, diarrhea, constipation, bloating, GI cramping, change in bowel habits, pain on defecation, hematochezia or melena : Denies: flank pain, difficulty urinating, dysuria, urinary frequency, urinary urgency, urinary hesitancy, urinary dribbling, difficulty starting urination, change in urine stream, nocturia or hematuria Musc: Denies: neck pain, back pain, extremity pain, joint pain, joint swelling, joint redness, joint stiffness or limited range of motion Neuro: Denies: headache(s), numbness in extremities, weakness in extremities, sensory changes, lack of coordination, difficulty walking, frequent falls, dizziness, vertigo, confusion, Slurred speech present, difficulty communicating thoughts or seizure-like activity Psych: Denies: anxiety, depression, mood swings, panic attacks, hopelessness or irritability Endo: Denies: polyuria, polydipsia, tired all the time, cold intolerance, excessive sweating, flushing or heat intolerance Alvaro/Lymph: Denies: easy bruising or easy bleeding All/Imm: Denies: tongue swelling, facial swelling or acute wheezing Medications/Allergies Home Medications Medication Instructions Recorded Confirmed Last Taken Type finasteride 5 mg tablet 5 mg PO DAILY 12/03/20 09/30/22 Unknown History furosemide 40 mg tablet 20 - 40 mg PO DAILY 02/18/22 09/30/22 Unknown History spironolactone 50 mg tablet 50 mg PO DAILY 02/18/22 09/30/22 Unknown History apixaban 5 mg tablet (Eliquis) 5 mg PO QAM 09/30/22 09/30/22 Unknown History loratadine 10 mg tablet (Claritin) 10 mg PO DAILY 09/30/22 09/30/22 Unknown History Allergies Allergy/AdvReac Type Severity Reaction Status Date / Time No Known Allergies Allergy Verified 06/23/22 09:05 PFSH Acute PFSH: Medical History (Updated 09/30/22 @ 16:35 by Nicola Paredes MD) Atrial fibrillation Congestive heart failure Dyspnea on exertion Hypertension Hypoxia Moderate aortic stenosis 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 Social History Smoking and tobacco status: never smoked Second hand smoke exposure: No Alcohol intake: current Alcohol intake frequency: holidays/special occasions only Alcohol type: wine Substance/Drug Use: never Vitals/I&O/Wt Last Vital Signs Temp 97.9 F 09/30/22 11:56 Pulse 94 09/30/22 14:19 Resp 18 09/30/22 14:19 BP 123/81 09/30/22 14:19 Pulse Ox 93 09/30/22 14:19 O2 Del Method Nasal Cannula 09/30/22 14:19 O2 Flow Rate 4 09/30/22 14:19 Weight last 48 hrs Weight 83.915 kg Physical Exam Narrative: General: Mild distress from difficulty in breathing at rest getting worse on minimal exertion, AO x3, NC oxygen supplementation saturating 93%, hard of hearing HEENT: PERRLA, pupils bilaterally equal and reactive, central obesity, pleasant Chest: Bilateral bronchial breath sounds all over lung robles with occasional rhonchi and crackles with decreased air entry in right lower zone CVS: S1-S2 irregularly irregular, no murmurs, no tachycardia, no gallops, no rubs Abdomen: Soft, nontender, no organomegaly, bowel sounds present, morbidly obese Neuro: No focal deficits, no facial deformity, AO x3, power 5/5 in all limbs Data 09/30/22 12:18 09/30/22 12:18 Other Labs: Radiology Impressions Chest X-Ray 09/30/22 12:36 IMPRESSION: 1. Atelectasis and/or infiltrate in the right base. Right-sided pleural thickening. 2. Chronic pleural thickening in the left lung base. 3. Cardiac enlargement unchanged. Laboratory Results WBC 11.2 10^3/uL (4.0-10.0) H 09/30/22 12:18 RBC 4.63 10^6/uL (4.1-5.3) 09/30/22 12:18 Hgb 13.6 g/dL (11.7-16.6) 09/30/22 12:18 Hct 42.7 % (42.0-52.0) 09/30/22 12:18 MCV 92.2 fl (80-94) 09/30/22 12:18 MCH 29.4 pg (28.0-34.0) 09/30/22 12:18 MCHC 31.9 g/dL (30.0-36.0) 09/30/22 12:18 RDW 13.6 % (12.1-15.1) 09/30/22 12:18 Plt Count 237 10^3/cmm (130-400) 09/30/22 12:18 MPV 12.1 fL (7.4-10.4) H 09/30/22 12:18 Neut % (Auto) 84.3 % 09/30/22 12:18 Lymph % (Auto) 6.7 % 09/30/22 12:18 [place] % (Auto) 7.1 % 09/30/22 12:18 Eos % (Auto) 0.0 % 09/30/22 12:18 Baso % (Auto) 0.3 % 09/30/22 12:18 Neut # (Auto) 9.45 10^3/uL (1.8-7.7) H 09/30/22 12:18 Lymph # (Auto) 0.8 10^3/uL (0.8-4.8) 09/30/22 12:18 [place] # (Auto) 0.8 10^3/uL (0.2-0.9) 09/30/22 12:18 Eos # (Auto) 0.0 10^3/uL (0.0-0.8) 09/30/22 12:18 Baso # (Auto) 0.0 10^3/uL (0.0-0.1) 09/30/22 12:18 Nucleated RBC % (auto) 0 % 09/30/22 12:18 Nucleated RBCs # 0.0 /100WBC 09/30/22 12:18 D-Dimer 1.68 ug/mIFEU (0-0.59) H 09/30/22 12:18 Sodium 136 mmol/L (136-145) 09/30/22 12:18 Potassium 4.7 mmol/L (3.5-5.1) 09/30/22 12:18 Chloride 100 mmol/L (98-107) 09/30/22 12:18 Carbon Dioxide 28 mmol/L (22-29) 09/30/22 12:18 Anion Gap 12.7 (5-19) 09/30/22 12:18 BUN 24 mg/dL (8-23) H 09/30/22 12:18 Creatinine 1.1 mg/dL (0.7-1.2) 09/30/22 12:18 GFR Calculation Not Reportable 09/30/22 12:18 Glucose 123 mg/dL (65-115) H 09/30/22 12:18 Calculated Osmolality 287 mOsm/kg (285-295) 09/30/22 12:18 Calcium 8.9 mg/dL (8.5-10.5) 09/30/22 12:18 Total Bilirubin 0.8 mg/dL (0.15-1.2) 09/30/22 12:18 AST 31 U/L (0-40) 09/30/22 12:18 ALT 38 U/L (0-41) 09/30/22 12:18 Alkaline Phosphatase 51 U/L (40-130) 09/30/22 12:18 Troponin T Baseline 35 ng/L (0-15) H 09/30/22 12:18 Troponin T 120 Minute 37.77 ng/L (0-15) H 09/30/22 14:14 Delta Troponin T 2.77 ABS# (0-10) 09/30/22 14:14 NT-Pro-B Natriuret Pep 2875 pg/mL (0-450) H 09/30/22 12:18 Total Protein 7.0 g/dL (6.6-8.7) 09/30/22 12:18 Albumin 3.2 g/dL (3.5-5.2) L 09/30/22 12:18 Globulin 3.8 g/dL (1.3-4.6) 09/30/22 12:18 TSH 1.36 uIU/mL (0.27-4.20) 09/30/22 12:18 SARS-CoV-2 Ag (Rapid) negative (Negative) 09/30/22 12:48 A&P Assessment and plan (1) Respiratory failure with hypoxia: (2) Right lower lobe pneumonia: (3) Congestive heart failure: Qualifiers: Heart failure chronicity: acute on chronic Heart failure type: right-sided Qualified Code(s): I50.813 - Acute on chronic right heart failure (4) 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: (5) Moderate aortic stenosis: (6) Atrial fibrillation: Plan Hypoxia: Most likely in setting of community-acquired pneumonia leading to exacerbation of acute on chronic diastolic heart failure. Check MRSA swab, sputum culture, urine Legionella, bacterial antigen, CT chest without contrast, blood cultures, respiratory viral panel. Ox supplementation keeping saturation over 90%. For now start patient on azithromycin and ceftriaxone for community-acquired pneumonia. Strict input of charting, daily weights. IV Lasix 40 mg twice daily. As per cardiology note patient has history of moderate aortic stenosis and RV dysfunction along with pulmonary hypertension. Atrial fibrillation: Rate controlled currently. Patient is not on any rate limiting drugs. Continue with Eliquis but at 5 mg twice daily dose. It seems patient is taking 5 mg oral daily at home. Will intellectual property counsel patient in detail. CODE STATUS: Discussed in detail with the patient at bedside. He does not want to have any life support. DNR/DNI. In case he is not able to make his own medical decisions DPOA would be his friend Mr. Benitez who number is in the chart. Famotidine for PUD prophylaxis. Eliquis 5 mg twice daily will suffice for DVT prophylaxis. Attestations Medical Necessity Statement*: Admission for more than 2 midnights for management of hypoxia in setting of community-acquired pneumonia leading to exacerbation of diastolic heart failure Diagnoses Respiratory failure with hypoxia J96.91 Right lower lobe pneumonia J18.9 Congestive heart failure I50.813 Heart failure chronicity: acute on chronic Heart failure type: right-sided 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 I27.20 Moderate aortic stenosis I35.0 Atrial fibrillation I48.91
[2022-09-30 15:59] LABS: D Dimer 1.68 ug/mIFEU (0-0.59)
[2022-09-30] MEDS: cefTRIAXone 2,000 MG in sodium chloride 0.9% (plus) 50 ML 100 MG IV (16:00)
[2022-09-30 16:23] LABS: Procalcitonin 0.22 ng/mL (0-0.5); Vitamin B12 369 pg/mL (232-1245)
[2022-09-30 16:34] LABS: C Reactive Protein 97.4 mg/L (0.0-4.9); Iron 25 ug/dL (59-158); Percent Saturation 12.8 % (20-50); Total Iron Binding Capacity 194 mcg/dl; Unsaturated Iron Binding 169 ug/dL (112-347)
[2022-09-30] MEDS: azithromycin 500 MG in sodium chloride 0.9% 250 ML 250 MG IV (17:20)
[2022-09-30] MEDS: famotidine 20 mg/2 mL INJ IVP (17:20)
[2022-09-30 17:24] LABS: Urine Creatinine 37 mg/dL (39-259)
[2022-09-30 17:30] LABS: Add Urine Microscopic? NO; Charge for UA Resulting for Rev
[2022-09-30 17:35] LABS: Bilirubin Urine Neg (Negative); Blood Urine Neg (Negative); Glucose Urine UA Norm (Normal); Ketones Urine Negative (Negative); Leukocyte Esterase Urine Negative (Negative); Nitrate Urine Negative (Negative); Protein Urine Neg (Negative); Specific Gravity, Urine 1.015 (1.005-1.030); Urine Appearance Clear (CLEAR); Urine Color Light yellow (Yellow); Urobilinogen Urine Norm (Negative); pH Urine 6 (5-7)
--- NOTE | 2022-09-30 18:18 | ECG_ITS ---
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 Measurements Intervals [place] Rate: 104 P: 0 NM: 0 QRS: 129 QRSD: 99 T: 41 QT: 341 QTc: 450 Interpretive Statements ATRIAL FIBRILLATION WITH RAPID VENTRICULAR RESPONSE INCOMPLETE RIGHT BUNDLE BRANCH BLOCK [90+ ms QRS DURATION, TERMINAL R IN V1/V2, 40+ ms S IN I/aVL/V4/V5/V6] POSSIBLE RIGHT VENTRICULAR HYPERTROPHY [SOME/ALL OF: PROMINENT R IN V1, LATE TRANSITION, RAD, PAULO, SSS] ANTEROSEPTAL MYOCARDIAL INFARCTION , PROBABLY OLD [40+ ms Q WAVE IN V1-V4] Compared to ECG 09/30/2022 16:01:39 Myocardial infarct finding now present Electronically Signed On 10-01-2022 7:24:56 CDT by Josephine Barrett M.D. [id number]
[2022-09-30 19:18] LABS: Adenovirus Not Detected (NOT DETECT); Chlamydia Pneumoniae Not Detected (NOT DETECT); Coronavirus 229E,HKU1,NL63,OC4 Not Detected (NOT DETECT); Human Metapneumovirus Not Detected (NOT DETECT); Human Rhinovirus/Enterovirus Not Detected (NOT DETECT); Influenza A Not Detected (NOT DETECT); Influenza A H1 Not Detected (NOT DETECT); Influenza A H1-2009 Not Detected (NOT DETECT); Influenza A H3 Not Detected (NOT DETECT); Influenza B Not Detected (NOT DETECT); Mycoplasma Pneumoniae Not Detected (NOT DETECT); Parainfluenza Virus Type 1 Not Detected (NOT DETECT); Parainfluenza Virus Type 2 Not Detected (NOT DETECT); Parainfluenza Virus Type 3 Detected (NOT DETECT); Parainfluenza Virus Type 4 Not Detected (NOT DETECT); Respiratory Syncytial Virus A Not Detected (NOT DETECT); Respiratory Syncytial Virus B Not Detected (NOT DETECT); SARS-COV-2 Not Detected (NOT DETECT)
[2022-09-30 19:39] LABS: Troponin 5 6HR 36.32 ng/L (0-15)
[2022-09-30 19:46] LABS: Troponin 5 6HR Delta 1.32 ng/L (0-12)
[2022-09-30] MEDS: dexamethasone 10 mg/mL INJ 6 MG IVP (20:27)
[2022-09-30] MEDS: apixaban 5 mg Tablet PO (20:27)
[2022-09-30] MEDS: ipratropium 0.5 mg/2.5 mL Neb INHALATION (20:51)
[2022-09-30] MEDS: budesonide 0.5 mg/2 mL Neb INHALATION (20:51)
[2022-09-30] MEDS: levalbuterol 0.63 mg/3 mL Neb INHALATION (20:51)
[2022-10-01] VITALS (12 sets, daily range): BP systolic 109–143; BP diastolic 58–85; PULSE 68–105; RESP 16–23; TEMP 36.3–36.6; O2SAT 90–95
[2022-10-01] MEDS: levalbuterol 0.63 mg/3 mL Neb INHALATION ×4 (03:05→21:05)
[2022-10-01] MEDS: famotidine 20 mg/2 mL INJ IVP ×2 (04:25→17:48)
[2022-10-01 04:44] LABS: Basophils % 0.3 %; Hematocrit 40.8 % (42.0-52.0); Lymphocytes # 0.5 10^3/uL (0.8-4.8); Lymphocytes % 7.2 %; Mean Corpuscular HGB Conc 31.9 g/dL (30.0-36.0); Mean Corpuscular Hemoglobin 30.2 pg (28.0-34.0); Mean Corpuscular Volume 94.9 fl (80-94); Mean Platelet Volume 12.2 fL (7.4-10.4); Monocytes # 0.2 10^3/uL (0.2-0.9); Monocytes % 2.4 %; Neutrophils # 6.12 10^3/uL (1.8-7.7); Neutrophils % 86.4 %; Nucleated Red Blood Cells % 0 %; Platelet Count 241 10^3/cmm (130-400); Red Cell Distribution Width 13.7 % (12.1-15.1); White Blood Count 7.1 10^3/uL (4.0-10.0)
[2022-10-01 04:51] LABS: Estmated Average Glucose 151; Hemoglobin A1C 6.9 % (4.0-6.0)
[2022-10-01 05:06] LABS: Alanine Aminotransferase 30 U/L (0-41); Albumin Level 2.7 g/dL (3.5-5.2); Alkaline Phosphatase 46 U/L (40-130); Anion Gap 13.9 (5-19); Aspartate Amino Transferase 24 U/L (0-40); Blood Urea Nitrogen 20 mg/dL (8-23); Calcium 8.7 mg/dL (8.5-10.5); Carbon Dioxide 27 mmol/L (22-29); Chloride 102 mmol/L (98-107); Chol HDL Ratio 5.77 mg/dL (1.0-5.00); Cholesterol 150 mg/dL (0-200); Globulin 3.6 g/dL (1.3-4.6); Glucose 184 mg/dL (65-115); HDL Cholesterol 26 mg/dL (60-100); LDL Cholesterol Calculated 106 mg/dL (50-129); LDL HDL Ratio 4.08 RATIO (0.00-3.22); Magnesium 2.3 mg/dL (1.7-2.3); Osmolality Calculated 293 mOsm/kg (285-295); Phosphorus 3.5 mg/dL (2.5-4.5); Potassium 4.9 mmol/L (3.5-5.1); Sodium 138 mmol/L (136-145); Total Bilirubin 0.4 mg/dL (0.15-1.2); Total Protein 6.3 g/dL (6.6-8.7); Triglycerides 89 mg/dL (0-150)
[2022-10-01 05:08] LABS: Procalcitonin 0.13 ng/mL (0-0.5)
[2022-10-01] MEDS: ipratropium 0.5 mg/2.5 mL Neb INHALATION ×3 (08:32→21:05)
[2022-10-01] MEDS: budesonide 0.5 mg/2 mL Neb INHALATION ×2 (08:32→21:04)
[2022-10-01] MEDS: azithromycin 250 mg Tablet 500 MG PO (10:32)
[2022-10-01] MEDS: apixaban 5 mg Tablet PO (10:32)
[2022-10-01] MEDS: finasteride 5 mg Tablet PO (10:32)
--- NOTE | 2022-10-01 10:59 | PC.CHAP ---
Pastoral Care Encounter/Spiritual Assessment Type of Contact [] Declined rhic systems safety engineer visit [] Patient/Family/Request visit [] Outpatient visit [] Follow-up visit [] Physician referral [] Code/Alert [x] Routine visit [] Staff referral [] Actively dying [] Patient sleeping [] Family support [] [] Out of room [] Palliative care [] [x] Receiving care in room [] Pre-surgical visit [] Trauma [] Long length of stay [] ICU visit [] Other: Relational/Emotional Strength [] Patient feels connected with others/family/visitors/staff [x] Distress [] Loneliness/isolation [] Abandonment Spirituality of Patient [] Person of Agata [] Attends Latter Day of their Agata [] Believes in Prayer [] Reads Bible or Adventist materials [] There are Spiritual issues to be addressed Radio Board Operator Interventions [] Prayer [] Active listening [] Non-anxious presence [] Spiritual/emotional support [] Crisis/trauma care [] Spiritual counseling [] Bereavement support [] Provided bereavement packet [] Provided Bible/devotional materials [] Provided toy/stuffed animal, coloring book to patient or family member [] Provided Communion [] Anointing/Nikolai [] Salvation [] Completed spiritual assessment [] Other: Impact on Illness or Injury [] Angry [] Fearful [] Anxious [] Often cries [] Exhaustion [] Unable to work [] Unable to attend faith [] Unable to walk/stand [] Unable to read [] Unable to drive [] Unable to eat/drink [] Unable to sleep [] Unable to be with family [] Patient intubated [] Other: Summary was not a ble to communicat nodded her head did seem to under stand Time spent with patient 10 mins
[2022-10-01] MEDS: FUROsemide 10 mg/mL SDV 4mL 40 MG IVP ×2 (11:11→17:48)
[2022-10-01 11:24] LABS: Glucose Point of Care 197 mg/dL (70-110)
[2022-10-01] MEDS: insulin lispro 100 unit/1 mL SUBCUT (13:27)
--- NOTE | 2022-10-01 14:26 | P.PN_ITS ---
Subjective Subjective: No acute events overnight. Seen with family at bedside. Patient continues to remain on 3 L of oxygen supplementation saturating more than 92%. Patient states he is feeling a lot better. Denies any nausea, vomiting, headache. Vitals/I&O/Wt Last Vital Signs Temp 97.7 F 10/01/22 11:22 Pulse 84 10/01/22 13:27 Resp 16 10/01/22 13:23 BP 109/58 10/01/22 11:22 Pulse Ox 95 10/01/22 13:23 O2 Del Method Nasal Cannula 10/01/22 13:23 O2 Flow Rate 3 10/01/22 13:23 09/30/22 10/01/22 10/01/22 22:59 06:59 14:59 Intake Total 300 / 300 600 / 600 Output Total 550 / 550 450 / 1000 Balance -250 / -250 -450 / -700 600 / 600 Weight last 48 hrs Weight 83.915 kg Physical Exam Narrative: General: No acute distress, AO x3, NC oxygen supplementation saturating 93%, hard of hearing HEENT: PERRLA, pupils bilaterally equal and reactive, central obesity, pleasant Chest: Bilateral bronchial breath sounds all over lung robles with occasional rhonchi and crackles with decreased air entry in right lower zone CVS: S1-S2 irregularly irregular, no murmurs, no tachycardia, no gallops, no rubs Abdomen: Soft, nontender, no organomegaly, bowel sounds present, morbidly obese Neuro: No focal deficits, no facial deformity, AO x3, power 5/5 in all limbs Data 10/01/22 03:55 10/01/22 03:55 Micro: Microbiology 09/30/22 16:48 Bacterial Antigens - Final Urine Kidney 09/30/22 16:48 Legionella Urinary Antigen - Final Unknown Source 09/30/22 15:32 Blood Culture - Preliminary Blood SPECIMEN COLLECTED 09/30/22 15:25 Blood Culture - Preliminary Blood SPECIMEN COLLECTED A&P Assessment and plan (1) Respiratory failure with hypoxia: (2) Parainfluenza virus bronchitis: (3) Right lower lobe pneumonia: (4) Congestive heart failure: Qualifiers: Heart failure chronicity: acute on chronic Heart failure type: right- sided Qualified Code(s): I50.813 - Acute on chronic right heart failure (5) 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: (6) Moderate aortic stenosis: (7) Atrial fibrillation: Plan Hypoxia: Most likely in setting of parainfluenza bronchitis leading to exacerbation of acute on chronic diastolic heart failure. MRSA swab pending, sputum culture pending, urine Legionella, bacterial antigen negative. CT chest results appreciated. Respiratory viral panel positive for parainfluenza infection. Supportive treatment with aggressive pulmonary toilet. Budesonide twice daily, ipratropium and Xopenex every 6 hour. Start on dexamethasone 6 mg IV daily For now continue with IV ceftriaxone and oral azithromycin. Will discontinue if blood culture and sputum culture remain negative within next 24 hours.. Strict input of charting, daily weights. IV Lasix 40 mg twice daily. As per cardiology note patient has history of moderate aortic stenosis and RV dysfunction along with pulmonary hypertension. Atrial fibrillation: Rate controlled currently. Patient is not on any rate limiting drugs. Continue with Eliquis but at 5 mg twice daily dose. It seems patient is taking 5 mg oral daily at home. Will primary substance abuse counselor patient in detail. Type 2 diabetes mellitus: Very remote history of diabetes in the past. Used to be on metformin. Not on recently. A1c 6.9. Start on insulin sliding scale at low-dose protocol. CODE STATUS: Discussed in detail with the patient at bedside. He does not want to have any life support. DNR/DNI. In case he is not able to make his own medical decisions DPOA would be his friend Mr. Benitez who number is in the chart. Famotidine for PUD prophylaxis. Eliquis 5 mg twice daily will suffice for DVT prophylaxis. Discharge planning: Plan to discharge in next 24 hours to home with caregiver if remains hemodynamically stable. We will be discharged on steroid taper, adjusted medications and oral Januvia. Attestations Medical Necessity Statement*: Requires further hospitalization for management of hypoxia in setting of parainfluenza bronchitis leading to congestive heart failure exacerbation. Diagnoses Respiratory failure with hypoxia J96.91 Parainfluenza virus bronchitis J20.4 Right lower lobe pneumonia J18.9 Congestive heart failure I50.813 Heart failure chronicity: acute on chronic Heart failure type: right-sided 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 I27.20 Moderate aortic stenosis I35.0 Atrial fibrillation I48.91
[2022-10-01] MEDS: cefTRIAXone 1,000 MG in sodium chloride 0.9% (plus) 50 ML 100 MG IV (16:01)
[2022-10-01 16:29] LABS: Glucose Point of Care 116 mg/dL (70-110)
--- NOTE | 2022-10-01 19:36 | PC.NURSE ---
Patient was agitated and yelling at 1900, security was called and spoke to patient. Patient stated he was agitated because he wants to be discharged home.
--- NOTE | 2022-10-01 19:38 | PC.NURSE ---
1930 this nurse went in to assess patient. Patient is refusing to let this nurse do a physical assessment at this time. Patient states I don't want to be checked at all tonight because I don't want them to find any reason to not let me go home in the morning. This nurse explained that we assess him to document his progress to see if he is healthy enough for discharge. Patient stated I don't care I am going home in the morning wether they discharge me or not.
--- NOTE | 2022-10-01 21:44 | PC.NURSE ---
Patient signed out AMA, Dr. Vega notified. Patient refused discharge assessment and vital signs. Family member came and picked up patient.
[2022-10-02 12:15] LABS: Methicillin-Resist S.aureu PCR NOT DETECTED (NOT DETECTED)
== END 2022-10-01 21:49 | disposition left against medical advice (07) | DRG 193 ==
LOC: ER 15:14 → MEDSURG 17:16
PROVIDERS: Admitting Provider Student in an Organized Health Care Education/Training Program; Emergency Provider Emergency Medicine; PCP Family Medicine; Visit Provider Student in an Organized Health Care Education/Training Program
DX: J18.9 Pneumonia, unspecified organism (principal); I50.33 Acute on chronic diastolic (congestive) heart failure; I11.0 Hypertensive heart disease with heart failure; I48.91 Unspecified atrial fibrillation; E11.9 Type 2 diabetes mellitus without complications; Z66 Do not resuscitate; I35.0 Nonrheumatic aortic (valve) stenosis; I27.20 Pulmonary hypertension, unspecified; Z53.29 Procedure and treatment not carried out because of patient's decision for other reasons; J20.4 Acute bronchitis due to parainfluenza virus
CPT/HCPCS: 36415; 36416; 71045; 71250; 80053; 80061; 81003; 82570; 82607; 82746; 82962; 83036; 83540; 83550; 83735; 83880; 84100; 84145; 84443; 84484; 85025; 85378; 86140; 86403; 87040; 87070; 87205; 87426; 87449; 87486; 87581; 87633; 87641; 93005; 94640; 96365; 96367; 96372; 96375; 99285; J0456; J0696; J1100; J1815; J1940; J3490; J7050; J7614; J7626; J7644; Q0144

== ENCOUNTER 2022-12-02 12:44 | Emergency (ER) | payer OTHER, SELFPAY ==
[2022-12-02 12:48] VITALS: BP 154/98; PULSE 90; RESP 20; O2SAT 91
--- NOTE | 2022-12-02 12:55 | ECG_ITS ---
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 Measurements Intervals [place] Rate: 109 P: 0 NC: 0 QRS: 143 QRSD: 88 T: 28 QT: 344 QTc: 465 Interpretive Statements ATRIAL FIBRILLATION WITH RAPID VENTRICULAR RESPONSE POSSIBLE RIGHT VENTRICULAR HYPERTROPHY [SOME/ALL OF: PROMINENT R IN V1, LATE TRANSITION, RAD, PAULO, SSS] ANTEROSEPTAL MYOCARDIAL INFARCTION , OF INDETERMINATE AGE [40+ ms Q WAVE IN V1-V4] Compared to ECG 09/30/2022 18:18:06 Incomplete right bundle-branch block no longer present Myocardial infarct finding still present Electronically Signed On 12-02-2022 23:24:05 CDT by Mahnaz Spears M.D. [id number]
--- NOTE | 2022-12-02 13:08 | ED_ITS ---
HPI - SOB/Dyspnea General: Chief Complaint: Shortness of Breath/Dyspnea Stated Complaint: low [facility] Time Seen by Provider: 12/02/22 12:57 History of Present Illness: HPI Narrative: Mr. Joe is an 82-year-old gentleman presenting to the emergency department for concern over shortness of breath and low oxygen levels. Patient has intermittent home oxygen use at 2 L. He noticed this morning having increased shortness of breath and went to clinic where he was subsequently referred here. He denies any history of atrial fibrillation though, per chart review, I see a prior hospitalization for this and that he is supposed to be on Eliquis. He thi nks he only takes 2 medications. Moderate intensity symptoms even at rest and becomes severe with any exertion. No other specific changes in health, exacerbating, or alleviating factors identified. 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 Social History Smoking and tobacco status: never smoked Second hand smoke exposure: No Alcohol intake: current Alcohol intake frequency: holidays/special occasions only Alcohol type: wine Substance/Drug Use: never Physical Exam Const: COMMON NORMALS: alert GENERAL APPEARANCE: cooperative and well developed HENMT: COMMON NORMALS: normocephalic and atraumatic HEAD & SCALP: normocephalic and atraumatic THROAT: posterior oropharynx normal Eye: COMMON NORMALS: conjunctivae normal CONJUNCTIVA: Yes conjunctivae normal SCLERA: sclerae normal Neck/C-Spine: COMMON NORMALS: supple GENERAL: Yes trachea midline Resp: EFFORT & INSPECTION: Yes able to speak in complete sentences AUSCULTATION: rales Cardio: COMMON NORMALS: regular rate and regular rhythm RATE: regular rate RHYTHM: regular rhythm GI: COMMON NORMALS: Soft to palpation PALPATION: Yes Soft to palpation and No Tenderness to palpation present (GI) Extremity: GENERAL: Yes normal exam except as noted and Yes edema (3+ pitting bilateral to above the knees.) Neuro: COMMON NORMALS: moves all extremities SENSORIUM/ORIENTATION: Yes alert and No Orientation impaired Psych: COMMON NORMALS: mental status grossly normal and Normal thought process present THOUGHT PROCESS: Normal thought process present Course Vital Signs: Vital signs: Vital Signs Pulse Rate 119 H 12/02/22 15:03 Respiratory Rate 22 H 12/02/22 15:03 Blood Pressure 148/118 12/02/22 15:03 Pulse Oximetry 95 12/02/22 15:03 Oxygen Delivery Me thod Nasal Cannula 12/02/22 14:38 Oxygen Flow Rate 3 12/02/22 14:38 MDM - SOB/Dyspnea Medical Decision Making 82-year-old gentleman presenting with shortness of breath. Clinically patient appears volume overloaded and is atrial fibrillation with rapid ventricular response. He has worsening oxygen requirement compared to baseline. EKG demonstrates atrial fibrillation versus other supraventricular rhythm, nons pecific ST segment abnormalities, no STEMI. Labs with no leukocytosis, normal hemoglobin and platelet count. Metabolic panel without acute electrolyte derangement. Lactic acid is elevated likely in dicative of current cardiac decompensation. Initial troponin elevated as is BNP. Lower clinical suspicion for infectious etiology. Chest x-ray with no lobar consolidation or pneumothorax. While waiting for laboratory results to complete the patient became quite belligerent to staff and demanded to leave. He appears to be most upset as he had been in the emergency department for approximately 2 hours. He reports that he was under the impression that he was just here for a oxygen shot . I explained my clinical suspicion including predicted remainder of ED course and plan for admission due to decompensation. The patient demanded to leave. The patient is oriented to person, place, and time, has the capacity to make decisions regarding the medical care offered. The patient speaks coherently and exhibits no evidence of having an altered level of consciousness or alcohol or drug intoxication to a point that would impair judgment. I explained risks of leaving including permanent debility or . The patient understands they are welcome to return to the hospital at any time to receive the recommended care or any other care at any time, regardless of their ability to pay for such care. Addendum: I attempted numerous times to get a hold of [facility] for further discussion wi th the patient's primary care on the day that patient left. Subsequently I was able to get a hold of some day the next day and updated them on patient's clinical state. They plan to contact the patient and discuss further. Medical Records I reviewed the patient's medical records. Lab Data I reviewed the patient's lab results. 12/02/22 13:20 12/02/22 13:20 Labs/Radiology: Radiology Impressions Chest X-Ray 12/02/22 13:16 IMPRESSION: Left basilar opacity. This probably correlates with the previous CT finding and may represent recurrent or persistent disease. Laboratory Results WBC 5.4 10^3/uL (4.0-10.0) 12/02/22 13:20 RBC 4.75 10^6/uL (4.1-5.3) 12/02/22 13:20 Hgb 14.4 g/dL (11.7-16.6) 12/02/22 13:20 Hct 46.8 % (42.0-52.0) 12/02/22 13:20 MCV 98.5 fl (80-94) H 12/02/22 13:20 MCH 30.3 pg (28.0-34.0) 12/02/22 13:20 MCHC 30.8 g/dL (30.0-36.0) 12/02/22 13:20 RDW 14.2 % (12.1-15.1) 12/02/22 13:20 Plt Count 207 10^3/cmm (130-400) 12/02/22 13:20 MPV 12.0 fL (7.4-10.4) H 12/02/22 13:20 Neut % (Auto) 77.0 % 12/02/22 13:20 Lymph % (Auto) 15.0 % 12/02/22 13:20 Jay % (Auto) 7.6 % 12/02/22 13:20 Eos % (Auto) 0.0 % 12/02/22 13:20 Baso % (Auto) 0.2 % 12/02/22 13:20 Neut # (Auto) 4.16 10^3/uL (1.8-7.7) 12/02/22 13:20 Lymph # (Auto) 0.8 10^3/uL (0.8-4.8) 12/02/22 13:20 Jay # (Auto) 0.4 10^3/uL (0.2-0.9) 12/02/22 13:20 Eos # (Auto) 0.0 10^3/uL (0.0-0.8) 12/02/22 13:20 Baso # (Auto) 0.0 10^3/uL (0.0-0.1) 12/02/22 13:20 Nucleated RBC % (auto) 0 % 12/02/22 13:20 Nucleated RBCs # 0.0 /100WBC 12/02/22 13:20 Sodium 141 mmol/L (136-145) 12/02/22 13:20 Potassium 4.4 mmol/L (3.5-5.1) 12/02/22 13:20 Chloride 104 mmol/L (98-107) 12/02/22 13:20 Carbon Dioxide 24 mmol/L (22-29) 12/02/22 13:20 Anion Gap 17.4 (5-19) 12/02/22 13:20 BUN 15 mg/dL (8-23) 12/02/22 13:20 Creatinine 0.9 mg/dL (0.7-1.2) 12/02/22 13:20 GFR Calculation Not Reportable 12/02/22 13:20 Glucose 147 mg/dL (65-115) H 12/02/22 13:20 Calculated Osmolality 296 mOsm/kg (285-295) H 12/02/22 13:20 Lactic Acid 2.4 mmol/L (0.5-2.2) H 12/02/22 13:20 Calcium 8.9 mg/dL (8.5-10.5) 12/02/22 13:20 Magnesium 1.9 mg/dL (1.7-2.3) 12/02/22 13:20 Total Bilirubin 0.8 mg/dL (0.15-1.2) 12/02/22 13:20 AST 12 U/L (0-40) 12/02/22 13:20 ALT 11 U/L (0-41) 12/02/22 13:20 Alkaline Phosphatase 47 U/L (40-130) 12/02/22 13:20 Troponin T Baseline 66 ng/L (0-15) H 12/02/22 13:20 C-Reactive Protein 3.0 mg/L (0.0-4.9) 12/02/22 13:20 NT-Pro-B Natriuret Pep 77811 pg/mL (0-450) H 12/02/22 13:20 Total Protein 6.2 g/dL (6.6-8.7) L 12/02/22 13:20 Albumin 3.8 g/dL (3.5-5.2) 12/02/22 13:20 Globulin 2.4 g/dL (1.3-4.6) 12/02/22 13:20 Procalcitonin 0.05 ng/mL (0-0.5) 12/02/22 13:20 TSH 1.82 uIU/mL (0.27-4.20) 12/02/22 13:20 Critical Care Time Critical Care Time: Critical Care Time: Yes Total Critical Care Time: 55 Attestation: Due to a high probability of clinically significant, possibly life threatening deterioration, the patient required my highest level of attention and preparedness to intervene emergently and I personally spent this critical care time directly and personally managing the patient. This critical care time included obtaining a history; examining the patient; pulse oximetry; ordering and review of laboratory and imaging studies; arranging urgent treatment with development of a management plan; evaluation of patient's response to treatment; frequent reassessment; and, discussions with other providers as applicable. It was exclusive of separately billable procedures. Primary system involved is cardiac Discharge Plan Discharge Patient Disposition: Left Against Medical Advice Clinical Impression: Acute decompensated heart failure, Cardiac volume overload, Atrial fibrillation with rapid ventricular response Condition: Stable Prescriptions: No Action loratadine [Claritin] 10 mg Tablet 10 mg PO DAILY Eliquis 5 mg tablet 5 mg PO QAM rosuvastatin [Crestor] 20 mg Tablet 10 mg PO DAILY metoprolol tartrate 25 mg Tablet 25 mg PO BID@0900,2100 Qty: 60 0RF furosemide 40 mg Tablet 40 mg PO DAILY amlodipine 5 mg Tablet 5 mg PO DAILY spironolactone 25 mg Tablet 25 mg PO DAILY valsartan 320 mg tablet 320 mg PO DAILY albuterol sulfate 90 mcg/actuation HFA aerosol inhaler 2 inh INHALATION Q4H PRN (Reason: Shortness Of Breath) finasteride 5 mg tablet 5 mg PO DAILY naproxen 500 mg Tablet 500 mg PO DAILY zinc oxide Ointment 1 applic TOPICAL TID Rx Instructions: SPARINGLY TO AFFECTED AREA FOR SKIN PROTECTION TO BUTTUCKS NEEDED potassium chloride 20 mEq Tablet Extended Release 20 meq PO DAILY Referrals: Nell Mendez MD [Primary Care Provider] - Coding Level of Care Code ED Lever Miller for Chg Fwrobby
--- NOTE | 2022-12-02 13:16 | XRR_ITS ---
PROCEDURE INFORMATION: Exam: XR Chest Exam date and time: 12/02/2022 1:31 PM Age: 82 years old Clinical indication: Shortness of breath; Additional info: SOB TECHNIQUE: Imaging protocol: Radiologic exam of the chest. Views: 1 view. COMPARISON: CT chest [facility] [id number] 09/30/2022 3:48 PM FINDINGS: Lungs: There is increasing left basilar/retrocardiac opacity concerning for infiltrate and/or atelectasis. Cannot exclude accompanying pleural effusion. Pleural spaces: See Lungs finding. No pneumothorax. Heart/Mediastinum: Left heart border is obscured. Bones/joints: Unremarkable. XR/XR chest 1V portable [id number] IMPRESSION: Left basilar opacity. This probably correlates with the previous CT finding and may represent recurrent or persistent disease.
--- NOTE | 2022-12-02 13:19 | PC.PHAR ---
Addendum entered by Daisha Dooley 12/02/22 14:37: called the [facility] talked to sonia merida at [facility] he states they only mail the pt 3 medications-states they mail claritin 10mg daily eliquis 5mg bid (pt states only takes 5mg daily) and crestor 20mg take 10mg daily-[facility] had finasteride 5mg daily ([facility] last filled 04/27/22 90d.s)-lasix (this note was entered on a previously entered med list pt had one pill of lasix 40mg in a bottle of finasteride pt also had alot of lasix 20mg tabs in the finasteride bottle- [facility] last filled 40mg tabs on 01/13/22 but states never filled 20mg for the tabs- medication not on va med list as a va med but pt states takes daily- requested medication be entered even tho medication wasnt in original medication bottle)spironolactone 50mg daily ([facility] last filled 07/13/22 90d/s no refills) amlodipine 5mg daily ([facility] last filled 07/13/22 90d/s 10mg daily) albuterol hfa 2p q4h prn-valsartan 320mg daily-kcl 20meq take 10meq daily and naproxen 500mg daily-medications entered are the 3 meds the or states they mail to him-called pts contact juan she states the pt takes care of his own medications and she has no clue what the pt takes Original Note: pt unable to verify medications-states [facility]-states he thinks he takes a bp and blood thinner tab once a day-faxed or for med list
[2022-12-02 13:25] VITALS: BP 140/81; PULSE 105; RESP 23; O2SAT 92
[2022-12-02 14:12] LABS: Lactic Sepsis W/Reflex 2.4 mmol/L (0.5-2.2)
[2022-12-02 14:13] LABS: Basophils % 0.2 %; Hematocrit 46.8 % (42.0-52.0); Hemoglobin 14.4 g/dL (11.7-16.6); Lymphocytes # 0.8 10^3/uL (0.8-4.8); Mean Corpuscular HGB Conc 30.8 g/dL (30.0-36.0); Mean Corpuscular Hemoglobin 30.3 pg (28.0-34.0); Mean Corpuscular Volume 98.5 fl (80-94); Monocytes # 0.4 10^3/uL (0.2-0.9); Monocytes % 7.6 %; Neutrophils # 4.16 10^3/uL (1.8-7.7); Nucleated Red Blood Cells % 0 %; Platelet Count 207 10^3/cmm (130-400); Red Blood Count 4.75 10^6/uL (4.1-5.3); Red Cell Distribution Width 14.2 % (12.1-15.1); White Blood Count 5.4 10^3/uL (4.0-10.0)
[2022-12-02 14:23] LABS: Troponin(5th) Baseline 66 ng/L (0-15)
[2022-12-02 14:31] LABS: NT Pro B Type Natriuretic Pept 10152 pg/mL (0-450); Procalcitonin 0.05 ng/mL (0-0.5); Thyroid Stimulating Hormone 1.82 uIU/mL (0.27-4.20)
[2022-12-02 14:38] VITALS: BP 148/118; PULSE 119; RESP 22; O2SAT 95
[2022-12-02 14:42] LABS: Alanine Aminotransferase 11 U/L (0-41); Albumin Level 3.8 g/dL (3.5-5.2); Alkaline Phosphatase 47 U/L (40-130); Anion Gap 17.4 (5-19); Aspartate Amino Transferase 12 U/L (0-40); Blood Urea Nitrogen 15 mg/dL (8-23); Calcium 8.9 mg/dL (8.5-10.5); Carbon Dioxide 24 mmol/L (22-29); Chloride 104 mmol/L (98-107); Globulin 2.4 g/dL (1.3-4.6); Glucose 147 mg/dL (65-115); Magnesium 1.9 mg/dL (1.7-2.3); Osmolality Calculated 296 mOsm/kg (285-295); Potassium 4.4 mmol/L (3.5-5.1); Sodium 141 mmol/L (136-145); Total Bilirubin 0.8 mg/dL (0.15-1.2); Total Protein 6.2 g/dL (6.6-8.7)
[2022-12-02 15:03] VITALS: BP 148/118; PULSE 119; RESP 22; O2SAT 95
--- NOTE | 2022-12-02 15:09 | PC.NURSE ---
Patient was angry and yelling at staff because his visit was taking too long, refused to give urine and respiratory panel. Pt yelled that he wanted to leave, Dr. Seay and charge nurse, Debra, told the patient that he should not leave due to low oxygen. Pt continued to yell at staff and say that he wants to leave now. Pt signed AMA form.
[2022-12-02 15:18] LABS: Reflex Lactate Order REFLEX LACTIC ORDERD
== END 2022-12-02 15:11 | disposition left against medical advice (07) ==
PROVIDERS: Emergency Provider Emergency Medicine; PCP Family Medicine
DX: Z53.21 Procedure and treatment not carried out due to patient leaving prior to being seen by health care provider (principal)
CPT/HCPCS: 36415; 71045; 80053; 83605; 83735; 83880; 84145; 84443; 84484; 85025; 86140; 87040; 93005; 99285

== ENCOUNTER 2022-12-03 12:36 | Inpatient (IN) | payer OTHER, SELFPAY ==
[2022-12-03] VITALS (8 sets, daily range): BP systolic 120–151; BP diastolic 78–120; PULSE 88–131; RESP 21–26; TEMP 37.2; O2SAT 79–95; BMI 37.7
--- NOTE | 2022-12-03 12:44 | XR_ITS ---
WS: [id number] Portable AP upright chest, 12/03/2022 Clinical Data: dyspnea/cough Comparison: Portable chest, 12/02/2022 Findings: There is a retrocardiac opacity unchanged. This opacity may represent pneumonia, atelectasi s and/or effusion. There is right lateral pleural thickening which is probably extrapleural fat. The heart is large. The pulmonary vascularity is not increased. No pneumothorax is seen. The aortic arch shows calcification. There are monitor leads on the chest wall. XR/XR chest 1V portable [id number] Impression: 1. No change in retrocardiac opacity. 2. Atherosclerosis and cardiomegaly.
--- NOTE | 2022-12-03 12:51 | ECG_ITS ---
[facility] Test Date: 2022-12-03 Pat Name: Yuri Joe Department: Room: Gender: Male Fisher Trawl Line: : 1940 Requested By: Steven Bermudez Order Number: [id number] Romina MD: Joey Courtney M.D. Measurements Intervals [place] Rate: 101 P: 0 MT: 0 QRS: 142 QRSD: 92 T: 41 QT: 339 QTc: 441 Interpretive Statements ATRIAL FIBRILLATION WITH RAPID VENTRICULAR RESPONSE INCOMPLETE RIGHT BUNDLE BRANCH BLOCK [90+ ms QRS DURATION, TERMINAL R IN V1/V2, 40+ ms S IN I/aVL/V4/V5/V6] RIGHT VENTRICULAR HYPERTROPHY [SOME/ALL OF: PROMINENT R IN V1, LATE TRANSITION, RAD, PAULO, SSS] ANTEROSEPTAL MYOCARDIAL INFARCTION , OF INDETERMINATE AGE [40+ ms Q WAVE IN V1-V4] Compared to ECG 12/02/2022 12:55:39 Incomplete right bundle-branch block now present Myocardial infarct finding still present Electronically Signed On 12-03-2022 15:28:10 CDT by Joey Courtney M.D. [id number]
[2022-12-03 13:33] LABS: Basophils % 0.2 %; Hematocrit 46.3 % (42.0-52.0); Hemoglobin 14.2 g/dL (11.7-16.6); Lymphocytes # 0.6 10^3/uL (0.8-4.8); Lymphocytes % 12.2 %; Mean Corpuscular HGB Conc 30.7 g/dL (30.0-36.0); Mean Corpuscular Hemoglobin 30.3 pg (28.0-34.0); Mean Corpuscular Volume 98.7 fl (80-94); Mean Platelet Volume 11.8 fL (7.4-10.4); Monocytes # 0.4 10^3/uL (0.2-0.9); Monocytes % 7.6 %; Neutrophils # 4.18 10^3/uL (1.8-7.7); Neutrophils % 79.6 %; Nucleated Red Blood Cells % 0 %; Platelet Count 160 10^3/cmm (130-400); Red Blood Count 4.69 10^6/uL (4.1-5.3); Red Cell Distribution Width 14.3 % (12.1-15.1); White Blood Count 5.3 10^3/uL (4.0-10.0)
[2022-12-03 13:34] LABS: ABG PCO2 40.1 mmHg (35-45); ABG PH Result 7.46 (7.35-7.45); Alveolar-Arterial Oxygen Gradi 17.3 mmHg (5-10); Arterial Blood Gas Hematocrit 44.7 % (42-52); Base Excess ABG 4.4 mmol/L (-2.0-2.0); Blood Gas Allen Test Pos; Blood Gas LPM 3.5 %; Blood Gas Operator Identificat MONRO; Blood Gas Sample Site Radial, right; Blood Gas Sample Type Arterial; HCO3 ABG 28.5 mmol/L (22-26); HGB O2 Sat 89.6 % (95-100); Ionized Calcium Level - ABG 1.2 mmol/L (1.1-1.4); Methemoglobin 0.5 % (0.4-1.5); Oxygen Device NC; Oxygen Saturation ABG 91.8; PO2 ABG 58.9 mmHg (80.0-100.0); Potassium Level - ABG 4.3 mmol/L (3.5-5.0); Total Hemoglobin 14.6 g/dL (14-18)
--- NOTE | 2022-12-03 13:39 | ED_ITS ---
HPI - SOB/Dyspnea General: Chief Complaint: Shortness of Breath/Dyspnea Stated Complaint: [facility] Time Seen by Provider: 12/03/22 12:42 Source: patient and family Mode of arrival: ambulatory History of Present Illness: HPI Narrative: 82-year-old male presents to the emergency room at the request of his PCP. He was in the emergency room last night was in A-fib and mildly tachycardic he was having significant decompensated congestive heart failure normally does not wear oxygen all the time and last night was requiring 38+ liters per minute he became frustrated last night and decided to leave. Fortunately Dr. Veloz called and asked his primary care doctor to make contact with him to see if they could get him to come back. Patient did return with a family member he still having orthopnea he is now requiring 3 and half liters he is tachycardic with a moderate rapid response in the low 100s in atrial fibrillation which is not new for him however he has not been taking medication to control it initially told me he was not taking any anticoagulation but it is on his medication list. He denies any fevers sweats or chills. His initial lactate was elevated last night but his BUN and creatinine were normal MD elicited complaint: shortness of breath and cough Pertinent past history: congestive heart failure, diabetes and other (A-fib RVR) Onset (ago): day(s) Timing: constant Severity: moderate Exacerbating factors: lying flat and exertion Relieving factors: oxygen, rest and upright position Known history of: congestive heart failure Associated symptoms: Reports chest congestion, cough and orthopnea; Deny abdominal pain, chest pain, diaphoresis, dizziness, extremity pain, fever(s), hemoptysis, lightheadedness, myalgias, nausea, palpitations, paresthesias, polydipsia, polyuria, rash, sense of impending doom, syncope or vomiting Treatment prior to arrival: oxygen Review of Systems Const: Denies: fever(s) or diaphoresis ENMT: Denies: throat pain, ear or mastoid pain, nasal discharge or nasal congestion Card: Reports: edema, swelling of feet/ankles, dyspnea on exertion and orthopnea; Denies: chest pain, palpitations, lightheadedness or syncope Resp: Reports: dyspnea, non-productive cough and chest congestion; Denies: hemoptysis GI: Denies: abdominal pain, nausea or vomiting : Denies: flank pain, dysuria, urinary frequency or urinary urgency Musc: Denies: extremity pain Skin/Breast: Denies: rash or pruritus Neuro: Denies: dizziness Endo: Denies: polyuria or polydipsia PFSH ED PFSH: Medical History Atrial fibrillation Congestive heart failure Dyspnea on exertion Hypertension Hypoxia Moderate aortic stenosis 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 Social History Smoking and tobacco status: never smoked Second hand smoke exposure: No Alcohol intake: current Alcohol intake frequency: holidays/special occasions only Alcohol type: wine Substance/Drug Use: never Physical Exam Const: GENERAL APPEARANCE: cooperative and comfortable ORIENTATION/CONSCIOUSNESS: Yes awake, Yes oriented to person, Yes oriented to place and Yes oriented to time HENMT: COMMON NORMALS: normocephalic, atraumatic and hearing grossly normal bilaterally HEAD & SCALP: normocephalic and atraumatic Resp: COMMON NORMALS: normal respiratory effort, No retractions and No use of accessory muscles AUSCULTATION: crackles and diminished lung sounds Cardio: RATE: tachycardic RHYTHM: abnormal rhythm irregularly irregular GI: COMMON NORMALS: Soft to palpation and No hepatosplenomegaly present AUSCULTATION: Yes normoactive bowel sounds PALPATION: Yes Soft to palpation, No Tenderness to palpation present (GI), No Guarding due to palpation present (GI) and Yes No hepatosplenomegaly present Extremity: COMMON NORMALS: normal to inspection GENERAL: Yes edema Neuro: SENSORIUM/ORIENTATION: Yes oriented to person, Yes oriented to place and Yes oriented to time Skin: COMMON NORMALS: no rashes or lesions noted GENERAL SKIN EXAM: no rashes or lesions noted Course Vital Signs: Vital signs: Vital Signs Temperature 97.9 F 12/04/22 11:43 Pulse Rate 97 12/04/22 11:47 Respiratory Rate 19 H 12/04/22 11:43 Blood Pressure 111/78 12/04/22 11:43 Pulse Oximetry 84 L 12/04/22 12:02 Oxygen Delivery Me thod Nasal Cannula 12/04/22 11:43 Oxygen Flow Rate 3 12/04/22 12:02 MDM - SOB/Dyspnea Medical Decision Making Decompensated congestive heart failure with A-fib with RVR. Cardizem given initially. Discussed with hospitalist will diurese admit orders written Medical Records I reviewed the patient's medical records. Lab Data I reviewed the patient's lab results. 12/04/22 02:26 12/04/22 02:26 Labs/Radiology: Radiology Impressions Chest X-Ray 12/03/22 12:44 Impression: 1. No change in retrocardiac opacity. 2. Atherosclerosis and cardiomegaly. Laboratory Results WBC 5.3 10^3/uL (4.0-10.0) 12/03/22 13:12 RBC 4.69 10^6/uL (4.1-5.3) 12/03/22 13:12 Hgb 14.2 g/dL (11.7-16.6) 12/03/22 13:12 Hct 46.3 % (42.0-52.0) 12/03/22 13:12 MCV 98.7 fl (80-94) H 12/03/22 13:12 MCH 30.3 pg (28.0-34.0) 12/03/22 13:12 MCHC 30.7 g/dL (30.0-36.0) 12/03/22 13:12 RDW 14.3 % (12.1-15.1) 12/03/22 13:12 Plt Count 160 10^3/cmm (130-400) 12/03/22 13:12 MPV 11.8 fL (7.4-10.4) H 12/03/22 13:12 Neut % (Auto) 79.6 % 12/03/22 13:12 Lymph % (Auto) 12.2 % 12/03/22 13:12 [place] % (Auto) 7.6 % 12/03/22 13:12 Eos % (Auto) 0.0 % 12/03/22 13:12 Baso % (Auto) 0.2 % 12/03/22 13:12 Neut # (Auto) 4.18 10^3/uL (1.8-7.7) 12/03/22 13:12 Lymph # (Auto) 0.6 10^3/uL (0.8-4.8) L 12/03/22 13:12 [place] # (Auto) 0.4 10^3/uL (0.2-0.9) 12/03/22 13:12 Eos # (Auto) 0.0 10^3/uL (0.0-0.8) 12/03/22 13:12 Baso # (Auto) 0.0 10^3/uL (0.0-0.1) 12/03/22 13:12 Nucleated RBC % (auto) 0 % 12/03/22 13:12 Nucleated RBCs # 0.0 /100WBC 12/03/22 13:12 Specimen Type Arterial 12/03/22 13:20 Sample Site Radial, right 12/03/22 13:20 ABG pH 7.46 (7.35-7.45) H 12/03/22 13:20 ABG pCO2 40.1 mmHg (35-45) 12/03/22 13:20 ABG pO2 58.9 mmHg (80.0-100.0) L 12/03/22 13:20 ABG HCO3 28.5 mmol/L (22-26) H 12/03/22 13:20 ABG O2 Saturation 91.8 12/03/22 13:20 ABG Base Excess 4.4 mmol/L (-2.0-2.0) H 12/03/22 13:20 Con Test Pos 12/03/22 13:20 A-a O2 Gradient 17.3 mmHg (5-10) H 12/03/22 13:20 Hematocrit 44.7 % (42-52) 12/03/22 13:20 Hgb O2 Saturation 89.6 % (95-100) L 12/03/22 13:20 Carboxyhemoglobin 2.0 %THgb (0.4-20.1) 12/03/22 13:20 Methemoglobin 0.5 % (0.4-1.5) 12/03/22 13:20 Total Hemoglobin 14.6 g/dL (14-18) 12/03/22 13:20 Sodium 141.0 mmol/L (131-143) 12/03/22 13:20 Potassium 4.3 mmol/L (3.5-5.0) 12/03/22 13:20 Glucose 159.0 mg/dL (70-115) H 12/03/22 13:20 Ionized Calcium 1.2 mmol/L (1.1-1.4) 12/03/22 13:20 O2 Delivery Device Nc 12/03/22 13:20 O2 Liters/Min 3.5 % 12/03/22 13:20 FiO2 34.0 % 12/03/22 13:20 Optimization Specialist ID Irina 12/03/22 13:20 Sodium 141 mmol/L (136-145) 12/03/22 13:12 Potassium 4.6 mmol/L (3.5-5.1) 12/03/22 13:12 Chloride 103 mmol/L (98-107) 12/03/22 13:12 Carbon Dioxide 28 mmol/L (22-29) 12/03/22 13:12 Anion Gap 14.6 (5-19) 12/03/22 13:12 BUN 16 mg/dL (8-23) 12/03/22 13:12 Creatinine 1.1 mg/dL (0.7-1.2) 12/03/22 13:12 GFR Calculation Not Reportable 12/03/22 13:12 Glucose 158 mg/dL (65-115) H 12/03/22 13:12 Calculated Osmolality 296 mOsm/kg (285-295) H 12/03/22 13:12 Calcium 8.8 mg/dL (8.5-10.5) 12/03/22 13:12 Magnesium 2.0 mg/dL (1.7-2.3) 12/03/22 13:12 Total Bilirubin 0.7 mg/dL (0.15-1.2) 12/03/22 13:12 AST 11 U/L (0-40) 12/03/22 13:12 ALT 10 U/L (0-41) 12/03/22 13:12 Alkaline Phosphatase 44 U/L (40-130) 12/03/22 13:12 Troponin T Baseline 68 ng/L (0-15) H 12/03/22 13:12 NT-Pro-B Natriuret Pep 25051 pg/mL (0-450) H 12/03/22 13:12 Total Protein 6.1 g/dL (6.6-8.7) L 12/03/22 13:12 Albumin 3.9 g/dL (3.5-5.2) 12/03/22 13:12 Globulin 2.2 g/dL (1.3-4.6) 12/03/22 13:12 TSH 1.65 uIU/mL (0.27-4.20) 12/03/22 13:12 Discharge Plan Discharge Patient Disposition: Admitted As Inpatient Admit Provider: Devon Walters Clinical Impression: Congestive heart failure, Atrial fibrillation Condition: Stable Discharge Diet: Cardiac Discharge Activity: Increase activity as tolerated Coding Level of Care Code ED Medical Device Engineer for Danish Mckee
[2022-12-03 13:49] LABS: Alanine Aminotransferase 10 U/L (0-41); Albumin Level 3.9 g/dL (3.5-5.2); Alkaline Phosphatase 44 U/L (40-130); Anion Gap 14.6 (5-19); Aspartate Amino Transferase 11 U/L (0-40); Blood Urea Nitrogen 16 mg/dL (8-23); Calcium 8.8 mg/dL (8.5-10.5); Carbon Dioxide 28 mmol/L (22-29); Chloride 103 mmol/L (98-107); Globulin 2.2 g/dL (1.3-4.6); Glucose 158 mg/dL (65-115); NT Pro B Type Natriuretic Pept 10276 pg/mL (0-450); Osmolality Calculated 296 mOsm/kg (285-295); Potassium 4.6 mmol/L (3.5-5.1); Sodium 141 mmol/L (136-145); Total Bilirubin 0.7 mg/dL (0.15-1.2); Total Protein 6.1 g/dL (6.6-8.7)
[2022-12-03] MEDS: dilTIAZem 30 mg Tablet PO (13:52)
[2022-12-03] MEDS: FUROsemide 10 mg/mL SDV 10mL 60 MG IVP (13:53)
--- NOTE | 2022-12-03 14:13 | PM.HP ---
Providers/Chief Complaint Admitting Physician: Devon Walters Primary Care Provider: Nell Mendez MD Chief Complaint: fluid on heart-[place] History of Present Illness Pleasant but very hard of hearing gentleman with history of atrial fibrillation, on Eliquis, not on rate control, return to ER after leaving prematurely yesterday after presenting with shortness of breath particular with exertion, worsening lower extremity edema. He normally uses oxygen only at night, he is currently requiring 3 L nasal cannula at rest. With noted severe lower extremity edema, NT proBNP elevated worsening strict 10,276. Also in ER with atrial fibrillation with RVR up to 120s. He states otherwise has not been ill, but has ran out of Lasix. Very difficult communication as he is completely hard of hearing even with his hearing aids in. Communicates slightly better with his friend/caregiver Eli who is by the bedside and provides most of the history. Review of Systems Const: Denies: fever(s), chills, body aches or malaise ENMT: Denies: throat pain Card: Reports: edema and dyspnea on exertion; Denies: chest pain or pre-syncope Resp: Reports: dyspnea; Denies: productive cough, change in phlegm color or hemoptysis GI: Denies: abdominal pain, nausea, vomiting, diarrhea, constipation, hematochezia or melena : Denies: flank pain, difficulty urinating, urinary frequency or hematuria Musc: Denies: back pain, joint swelling or joint redness Skin/Breast: Denies: rash or new lesions Neuro: Denies: headache(s) or confusion Medications/Allergies Home Medications Medication Instructions Recorded Confirmed Last Taken Type apixaban 5 mg tablet (Eliquis) 5 mg PO QAM 09/30/22 12/02/22 Unknown History loratadine 10 mg tablet (Claritin) 10 mg PO DAILY 09/30/22 12/02/22 Unknown History rosuvastatin 20 mg tablet (Crestor) 10 mg PO DAILY 12/02/22 12/02/22 Unknown History Allergies Allergy/AdvReac Type Severity Reaction Status Date / Time No Known Allergies Allergy Verified 06/23/22 09:05 PFSH Acute PFSH: Medical History Atrial fibrillation Congestive heart failure Dyspnea on exertion Hypertension Hypoxia Moderate aortic stenosis 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 Social History Smoking and tobacco status: never smoked Second hand smoke exposure: No Alcohol intake: current Alcohol intake frequency: holidays/special occasions only Alcohol type: wine Substance/Drug Use: never Vitals/I&O/Wt Last Vital Signs Pulse 120 H 12/03/22 12:46 Resp 24 H 12/03/22 12:46 BP 151/120 12/03/22 12:46 Pulse Ox 79 L 12/03/22 12:46 O2 Del Method Room Air 12/03/22 12:46 Weight last 48 hrs Weight 108.862 kg Physical Exam Const: COMMON NORMALS: patient oriented x3 and alert GENERAL APPEARANCE: cooperative ORIENTATION/CONSCIOUSNESS: Yes awake HENMT: COMMON NORMALS: oropharynx normal Neck/C-Spine: COMMON NORMALS: no JVD Resp: COMMON NORMALS: normal respiratory effort and clear to auscultation bilaterally AUSCULTATION: clear to auscultation bilaterally and diminished lung sounds Cardio: COMMON NORMALS: no JVD, regular rhythm, S1 normal heart sound present, S2 normal heart sound present and No murmurs present (Cardio) RHYTHM: regular rhythm HEART SOUNDS: S1 normal heart sound present and S2 normal heart sound present GI: COMMON NORMALS: Normal to inspection, nondistended, normoactive bowel sounds present, Soft to palpation and non-tender PALPATION: Yes Soft to palpation Extremity: COMMON NORMALS: no joint enlargement GENERAL: Yes edema (3+) Neuro: COMMON NORMALS: patient oriented x3 and moves all extremities SENSORIUM/ORIENTATION: Yes alert Skin: COMMON NORMALS: no rashes or lesions noted GENERAL SKIN EXAM: no rashes or lesions noted Data 12/03/22 13:12 12/03/22 13:12 A&P Assessment and plan (1) Acute decompensated heart failure: Acute decompensated congestive heart failure, type unknown. With respiratory failure, new oxygen requirement 3 L nasal cannula, tachypnea 23. Diminished air entry on exam. Received Lasix 60 mg, will continue Lasix 40 mg twice daily. Monitor CATRACHITO, recheck renal function, electrolytes. Monitor blood pressure, with moderate aortic stenosis, atrial fibrillation or other RVR, diuresis, at risk for hypotension, electrolyte abnormalities, life-threatening arrhythmia. Monitor on telemetry. Complete troponin EKG series to assess for any cardiac ischemia. Moderate baseline troponin ovation of 68. No suggestion of STEMI on EKG. I do not see obvious ischemia on review. Assess TTE. Check magnesium, TSH. (2) Atrial fibrillation with rapid ventricular response: Received Cardizem. Will start on metoprolol 25 mg twice daily starting tonight. Check magnesium, TSH. Monitor on telemetry. Continue Eliquis. TTE. Admit to CSU. Plan HTN: Monitor blood pressures. Started on metoprolol Moderate aortic stenosis: Monitor blood pressure, at risk of hypotension 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: On oxygen at night, sometimes wears it when he sits down watching TV. Will need O2 study prior to discharge, may require oxygen with exertion or through the day. Very hard of hearing: Hold request for [employer] board for communication. Attestations Medical Necessity Statement*: Admission of over 2 midnights anticipated for assessment management of acutely decompensated congestive heart failure, atrial fibrillation with RVR. Discussed with ER physician, ER documentation reviewed. Diagnoses Acute decompensated heart failure I50.9 Atrial fibrillation with rapid ventricular response I48.91
[2022-12-03 14:14] LABS: Troponin(5th) Baseline 68 ng/L (0-15)
[2022-12-03 14:50] LABS: Thyroid Stimulating Hormone 1.65 uIU/mL (0.27-4.20)
[2022-12-03 14:53] LABS: Add Urine Microscopic? YES; Bilirubin Urine Neg (Negative); Blood Urine Neg (Negative); Glucose Urine UA Norm (Normal); Ketones Urine Negative (Negative); Leukocyte Esterase Urine Negative (Negative); Nitrate Urine Negative (Negative); Protein Urine 1+ (Negative); Urine Appearance SL Hazy (CLEAR); Urine Color Yellow (Yellow); Urobilinogen Urine Norm (Negative); pH Urine 6 (5-7)
[2022-12-03 14:55] LABS: Add Urine Culture? No; RBC Urine 0-4 /hpf (0-2); Squamous Epithelial Cell Urine 0-4 /hpf (0-5); WBC Urine 0-4 /hpf (0-5)
--- NOTE | 2022-12-03 15:00 | USCV_ITS ---
Yuri Joe Age: 82 Gender: M : 1940 Exam Date: 12/03/2022 18:21 Ordering Phys: Devon Walters MD Technologist: LAUREN Exam Location: [facility] – [place] Indication: shortness of breath, evaluate for CHF. No history of cardiac intervention per patient. BP: 131 / 78 HR: 113 Rhythm: Atrial fibrillation Technical Quality: Adequate with OPTISON MEASUREMENTS (Male / Female) Normal Values 2D ECHO LV Diastolic Diameter PLAX 5.3 cm 4.2 - 5.9 / 3.9 - 5.3 cm LV Systolic Diameter PLAX 3.3 cm IVS Diastolic Thickness 1.5 cm 0.6 - 1.0 / 0.6 - 0.9 cm IVS Systolic Thickness 2.0 cm LVPW Diastolic Thickness 1.8 cm 0.6 - 1.0 / 0.6 - 0.9 cm LVPW Systolic Thickness 2.1 cm LVOT Diameter 2.2 cm LV Ejection Fraction 2D Teich 68.5 % LV Ejection Fraction MOD 2C 63.8 % LV Ejection Fraction 2C AL 66.3 % LA Diameter 6.5 cm LA Width 5.4 cm LA Height 7.4 cm RA Width 4.7 cm RA Height 7.6 cm Aorta at Sinotubular Diameter 3.5 cm IVC Diameter 2.7 cm M-MODE Aortic Annulus Diameter 3.5 cm LA Ao Ratio MM 2.1 MV E Point Septal Separation 0.3 cm DOPPLER AV Peak Velocity 390.0 cm/s LVOT Peak Velocity 65.0 cm/s AV Area Cont Eq vti 0.7 cm squared AV Area Cont Eq pk 0.6 cm squared MV Peak Velocity 108.0 cm/s MV Area PHT 5.0 cm squared Mitral E to A Ratio 142.0 MV E' Velocity 43.0 cm/s Mitral E to MV E' Ratio 6.3 Mitral E to LV E' Lateral Ratio 4.8 Mitral E to LV E' Septal Ratio 9.3 TR Peak Velocity 393.0 cm/s TR Peak Gradient 61.8 mmHg TV Peak E Velocity 60.0 cm/s Right Atrial Pressure 15.0 mmHg Pulmonary Artery Systolic Pressu 76.8 mmHg FINDINGS Left Ventricle Normal left ventricular cavity size and systolic function. Moderately increased left ventricular wall thickness. Left ventricular ejection fraction is estimated at 60-65 %. No diagnostic regional wall motion abnormality. Abnormal septal motion consistent with conduction abnormality. Right Ventricle Moderately increased right ventricular size. Moderately decreased right ventricular systolic function. Right ventricular systolic pressure 76.8 mmHg. Right Atrium Moderately increased right atrial size. Left Atrium Severely increased left atrial size. Mitral Valve Structurally normal mitral valve. Aortic Valve Markedly thickened and calcified aortic valve. Severe aortic valve stenosis, velocity 3.6 m/s, peak gradient 53 mm Hg, mean gradient 22 mmHg, WOLF 0.70 cm squared. Trace aortic valve regurgitation. Tricuspid Valve Structurally normal tricuspid valve. No tricuspid valve stenosis. Trace to mild tricuspid valve regurgitation. Pulmonic Valve Pulmonic valve not well visualized. Pericardium Small pericardial effusion along right atrium. No evidence of hemodynamic compromise Aorta Normal sized aortic root. IVC Dilated IVC with normal respiratory variation. CONCLUSIONS 1. This is a technically difficult study. Optison was used per protocol. 2. Normal left ventricular cavity size and systolic function. Moderate concentric left ventricular hypertrophy.. Left ventricular ejection fraction is estimated at 60-65%. No diagnostic regional wall motion abnormality. 3. Moderately decreased right ventricular systolic function. 4. Severe pulmonary hypertension with pulmonary artery pressure estimated at 77 mmHg. 5. Severe aortic valve stenosis, velocity 3.6 m/s, peak gradient 53 mm Hg, mean gradient 22 mmHg, WOLF 0.70 cm squared. 6. Small pericardial effusion along right atrium. No evidence of hemodynamic compromise 7. Direct comparison to previous study is not possible due to technically difficult study Josephine Barrett MD (Electronically Signed) Final Date: 04 December 2022 11:22 S
--- NOTE | 2022-12-03 15:07 | PC.PHAR ---
[facility]ENDING [facility] FA[facility] FOR MED L[facility] 3:07 PM 12/03/22
[2022-12-03 15:54] LABS: Troponin 5 2HR 70.89 ng/L (0-15)
[2022-12-03 15:55] LABS: Troponin 5 2HR Delta 2.89 ABS# (0-10)
--- NOTE | 2022-12-03 16:24 | ECG_ITS ---
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 Measurements Intervals Penelope Rate: 112 P: 0 AR: 0 QRS: 138 QRSD: 109 T: 36 QT: 328 QTc: 450 Interpretive Statements ATRIAL FIBRILLATION WITH RAPID VENTRICULAR RESPONSE RIGHT AXIS DEVIATION [QRS AXIS > 100] LOW QRS VOLTAGE IN PRECORDIAL LEADS [QRS DEFLECTION < 1.0 mV IN CHEST LEADS] PATTERN CONSISTENT WITH PULMONARY DISEASE RIGHT BUNDLE BRANCH BLOCK [120+ ms QRS DURATION, UPRIGHT V1, 40+ ms S IN I/aVL/V4/V5/V6] SEPTAL MYOCARDIAL INFARCTION , OF INDETERMINATE AGE [40+ ms Q WAVE IN V1/V2] Compared to ECG 12/03/2022 12:51:20 Right-axis deviation now present Low QRS voltage now present Right ventricular hypertrophy no longer present Atrial abnormality no longer present Myocardial infarct finding still present Electronically Signed On 12-03-2022 22:10:16 CDT by Joey Courtney M.D. [id number]
[2022-12-03 20:02] LABS: Troponin 5 6HR 74.91 ng/L (0-15)
[2022-12-03 20:03] LABS: Troponin 5 6HR Delta 6.91 ng/L (0-12)
[2022-12-03] MEDS: apixaban 5 mg Tablet PO (20:14)
[2022-12-03] MEDS: metoprolol tartrate 25 mg Tablet PO (20:14)
--- NOTE | 2022-12-03 20:38 | ECG_ITS ---
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 Measurements Intervals [place] Rate: 87 P: 0 NE: 0 QRS: 160 QRSD: 95 T: 40 QT: 367 QTc: 442 Interpretive Statements ATRIAL FIBRILLATION INCOMPLETE RIGHT BUNDLE BRANCH BLOCK [90+ ms QRS DURATION, TERMINAL R IN V1/V2, 40+ ms S IN I/aVL/V4/V5/V6] ANTEROSEPTAL MYOCARDIAL INFARCTION , PROBABLY OLD [40+ ms Q WAVE IN V1-V4] Compared to ECG 12/03/2022 16:24:13 Incomplete right bundle-branch block now present Right-axis deviation no longer present Right bundle-branch block no longer present Myocardial infarct finding still present Electronically Signed On 12-03-2022 22:08:22 CDT by Joey Courtney M.D. [id number]
[2022-12-03] MEDS: trazodone 50 mg Tablet PO (22:08)
--- NOTE | 2022-12-03 23:37 | PC.NURSE ---
Patient calling family for a ride home tonight. Patient is not sleeping and is worried about his dog. He is ready to leave AMA. Informed Dr Martin and received onetime order for Restoril 15mg PO. RBVO
[2022-12-03] MEDS: temazepam 15 mg Capsule PO (23:39)
[2022-12-04] VITALS (8 sets, daily range): BP systolic 111–128; BP diastolic 78–84; PULSE 85–102; RESP 19–29; TEMP 36.4–36.6; O2SAT 84–94
[2022-12-04 03:25] LABS: Basophils % 0.3 %; Hematocrit 45.4 % (42.0-52.0); Lymphocytes # 0.9 10^3/uL (0.8-4.8); Lymphocytes % 14.6 %; Mean Corpuscular HGB Conc 30.8 g/dL (30.0-36.0); Mean Corpuscular Hemoglobin 30.1 pg (28.0-34.0); Mean Corpuscular Volume 97.6 fl (80-94); Mean Platelet Volume 12.5 fL (7.4-10.4); Monocytes # 0.7 10^3/uL (0.2-0.9); Monocytes % 11.2 %; Neutrophils # 4.53 10^3/uL (1.8-7.7); Neutrophils % 73.6 %; Nucleated Red Blood Cells % 0 %; Platelet Count 182 10^3/cmm (130-400); Red Blood Count 4.65 10^6/uL (4.1-5.3); Red Cell Distribution Width 14.3 % (12.1-15.1); White Blood Count 6.2 10^3/uL (4.0-10.0)
[2022-12-04] MEDS: FUROsemide 10 mg/mL SDV 4mL 40 MG IVP (03:36)
[2022-12-04 03:44] LABS: Blood Urea Nitrogen 16 mg/dL (8-23); Calcium 8.9 mg/dL (8.5-10.5); Carbon Dioxide 32 mmol/L (22-29); Chloride 102 mmol/L (98-107); Glucose 130 mg/dL (65-115); Osmolality Calculated 299 mOsm/kg (285-295); Sodium 143 mmol/L (136-145)
--- NOTE | 2022-12-04 07:05 | PC.PHAR ---
REFAXING REQUEST FOR MED LIST 12/04/22
[2022-12-04] MEDS: apixaban 5 mg Tablet PO (08:26)
[2022-12-04] MEDS: metoprolol tartrate 25 mg Tablet PO (08:26)
[2022-12-04] MEDS: atorvastatin 40 mg Tablet PO (08:26)
[2022-12-04] MEDS: perflutren protein-a microsphr 0.22 mg/mL SDV 3 mL IV (08:32)
--- NOTE | 2022-12-04 11:36 | PM.DCS ---
Discharge Providers Date of Admission: 12/03/22 13:50 Date of Discharge: December 04, 2022 Attending Provider at Admission: Devon Walters Attending Provider at Discharge: Devon Walters Primary Care Provider: Nell Mendez MD Diagnoses at Discharge Discharge Diagnosis (1) Acute decompensated heart failure: Status: Acute (2) Atrial fibrillation with rapid ventricular response: Status: Acute Reason for Visit Reason for Visit: fluid on heart-sent from [place] Hospital Course Hospital Course 82-year-old gentleman with past history of atrial fibrillation on Eliquis, with past history of atrial fibrillation on Eliquis, not on rate control medication, history of CHF, HTN, moderate aortic stenosis, moderate to severe pulmonary hypertension, was admitted after initially leaving AMA from ER the night before, return to the hospital due to persistent severe dyspnea on exertion, new hypoxia requiring 3 L of nasal cannula oxygen, normally prior to that wearing oxygen only at night. Also with atrial fibrillation with RVR. Received a dose of Cardizem, started on metoprolol 25 mg twice daily after that. Continue on Eliquis. Magnesium and TSH were checked and okay. He was reluctant to stay in the hospital but agreed after discussion of CHF, A-fib with RVR, cardiac risks. Moderate troponin elevation. Remains chest pain-free. Baseline 68, and 2-hour 71, 6-hour 75. NT-proBNP 10,276. Echocardiogram assessed, normal EF, no diagnostic regional wall motion abnormality. Severe pulmonary hypertension. Severe aortic valve stenosis. Small pericardial effusion. No hemodynamic compromise. Received Lasix 60 mg IV last night and 40 mg this morning. Has diuresed well and is -5.7 L. He is feeling better, he demands to be discharged home. Discussed with his caregiver Eli. Home oxygen evaluation is requested for prior to discharge. He is asked to follow-up for reassessment with primary provider and is referred for follow-up to cardiology. Physical Exam Const: COMMON NORMALS: patient oriented x3 and alert GENERAL APPEARANCE: cooperative ORIENTATION/CONSCIOUSNESS: Yes awake HENMT: COMMON NORMALS: oropharynx normal Neck/C-Spine: COMMON NORMALS: no JVD Resp: COMMON NORMALS: normal respiratory effort and clear to auscultation bilaterally AUSCULTATION: clear to auscultation bilaterally Cardio: COMMON NORMALS: no JVD, regular rhythm, S1 normal heart sound present, S2 normal heart sound present and No murmurs present (Cardio) RHYTHM: regular rhythm HEART SOUNDS: S1 normal heart sound present and S2 normal heart sound present GI: COMMON NORMALS: Normal to inspection, nondistended, normoactive bowel sounds present, Soft to palpation and non-tender PALPATION: Yes Soft to palpation Extremity: COMMON NORMALS: no joint enlargement and no pedal edema GENERAL: Yes edema (2+) Neuro: COMMON NORMALS: patient oriented x3 and moves all extremities SENSORIUM/ORIENTATION: Yes alert Skin: COMMON NORMALS: no rashes or lesions noted GENERAL SKIN EXAM: no rashes or lesions noted Urinary Catheter Management: Quintero: Cath Placed During This Visit: yes Reason for Continuing Indwelling Catheter: Accurate Measurement of Urinary Output in Critically Ill Patients Urinary Catheter Date of Insertion: 12/03/22 Urinary Catheter Time of Insertion: 15:30 Discharge Data Studies Completed and Pending Completed Studies During Hospitalization Category Date Time Status XR chest 1V portable [id number] Stat Exams 12/03/22 12:44 Completed CV. echo wo/w contrast [id number] Routine Ultrasound 12/03/22 15:00 Completed Pending at discharge Category Date Time Status Basic Metabolic Panel AM LABS Lab 12/05/22 04:00 Ordered Basic Metabolic Panel AM LABS Lab 12/06/22 04:00 Ordered Complete Blood Count w/Auto AM LABS Lab 12/05/22 04:00 Ordered Complete Blood Count w/Auto AM LABS Lab 12/06/22 04:00 Ordered Radiology Impressions Chest X-Ray 12/03/22 12:44 Impression: 1. No change in retrocardiac opacity. 2. Atherosclerosis and cardiomegaly. Laboratory Results WBC 6.2 10^3/uL (4.0-10.0) 12/04/22 02:26 RBC 4.65 10^6/uL (4.1-5.3) 12/04/22 02:26 Hgb 14.0 g/dL (11.7-16.6) 12/04/22 02:26 Hct 45.4 % (42.0-52.0) 12/04/22 02:26 MCV 97.6 fl (80-94) H 12/04/22 02:26 MCH 30.1 pg (28.0-34.0) 12/04/22 02:26 MCHC 30.8 g/dL (30.0-36.0) 12/04/22 02: RDW 14.3 % (12.1-15.1) 12/04/22 02: Plt Count 182 10^3/cmm (130-400) 12/04/22 02: MPV 12.5 fL (7.4-10.4) H 12/04/22 02:26 Neut % (Auto) 73.6 % 12/04/22 02: Lymph % (Auto) 14.6 % 12/04/22 02:26 [place] % (Auto) 11.2 % 12/04/22 02:26 Eos % (Auto) 0.0 % 12/04/22 02: Baso % (Auto) 0.3 % 12/04/22 02: Neut # (Auto) 4.53 10^3/uL (1.8-7.7) 12/04/22 02: Lymph # (Auto) 0.9 10^3/uL (0.8-4.8) 12/04/22 02:26 [place] # (Auto) 0.7 10^3/uL (0.2-0.9) 12/04/22 02:26 Eos # (Auto) 0.0 10^3/uL (0.0-0.8) 12/04/22 02: Baso # (Auto) 0.0 10^3/uL (0.0-0.1) 12/04/22 02: Nucleated RBC % (auto) 0 % 12/04/22 02: Nucleated RBCs # 0.0 /100WBC 12/04/22 02:26 Specimen Type Arterial 12/03/22 13:20 Sample Site Radial, right 12/03/22 13:20 ABG pH 7.46 (7.35-7.45) H 12/03/22 13:20 ABG pCO2 40.1 mmHg (35-45) 12/03/22 13:20 ABG pO2 58.9 mmHg (80.0-100.0) L 12/03/22 13:20 ABG HCO3 28.5 mmol/L (22-26) H 12/03/22 13:20 ABG O2 Saturation 91.8 12/03/22 13:20 ABG Base Excess 4.4 mmol/L (-2.0-2.0) H 12/03/22 13:20 Con Test Pos 12/03/22 13:20 A-a O2 Gradient 17.3 mmHg (5-10) H 12/03/22 13:20 Hematocrit 44.7 % (42-52) 12/03/22 13:20 Hgb O2 Saturation 89.6 % (95-100) L 12/03/22 13:20 Carboxyhemoglobin 2.0 %THgb (0.4-20.1) 12/03/22 13:20 Methemoglobin 0.5 % (0.4-1.5) 12/03/22 13:20 Total Hemoglobin 14.6 g/dL (14-18) 12/03/22 13:20 Sodium 141.0 mmol/L (131-143) 12/03/22 13:20 Potassium 4.3 mmol/L (3.5-5.0) 12/03/22 13:20 Glucose 159.0 mg/dL (70-115) H 12/03/22 13:20 Ionized Calcium 1.2 mmol/L (1.1-1.4) 12/03/22 13:20 O2 Delivery Device Nc 12/03/22 13:20 O2 Liters/Min 3.5 % 12/03/22 13:20 FiO2 34.0 % 12/03/22 13:20 [employer] Merchandising Coordinator ID Monro 12/03/22 13:20 Sodium 143 mmol/L (136-145) 12/04/22 02:26 Potassium 4.0 mmol/L (3.5-5.1) 12/04/22 02:26 Chloride 102 mmol/L (98-107) 12/04/22 02:26 Carbon Dioxide 32 mmol/L (22-29) H 12/04/22 02:26 Anion Gap 13.0 (5-19) 12/04/22 02:26 BUN 16 mg/dL (8-23) 12/04/22 02:26 Creatinine 1.1 mg/dL (0.7-1.2) 12/04/22 02:26 GFR Calculation Not Reportable 12/04/22 02:26 Glucose 130 mg/dL (65-115) H 12/04/22 02:26 Calculated Osmolality 299 mOsm/kg (285-295) H 12/04/22 02:26 Calcium 8.9 mg/dL (8.5-10.5) 12/04/22 02:26 Magnesium 2.0 mg/dL (1.7-2.3) 12/03/22 13:12 Total Bilirubin 0.7 mg/dL (0.15-1.2) 12/03/22 13:12 AST 11 U/L (0-40) 12/03/22 13:12 ALT 10 U/L (0-41) 12/03/22 13:12 Alkaline Phosphatase 44 U/L (40-130) 12/03/22 13:12 Troponin T Baseline 68 ng/L (0-15) H 12/03/22 13:12 Troponin T 120 Minute 70.89 ng/L (0-15) H 12/03/22 15:14 Delta Troponin T 2.89 ABS# (0-10) 12/03/22 15:14 Troponin T Hi Sens 6Hr 74.91 ng/L (0-15) H 12/03/22 19:28 Troponin T Hi Sens 6Hr Delta 6.91 ng/L (0-12) 12/03/22 19:28 NT-Pro-B Natriuret Pep 20183 pg/mL (0-450) H 12/03/22 13:12 Total Protein 6.1 g/dL (6.6-8.7) L 12/03/22 13:12 Albumin 3.9 g/dL (3.5-5.2) 12/03/22 13:12 Globulin 2.2 g/dL (1.3-4.6) 12/03/22 13:12 TSH 1.65 uIU/mL (0.27-4.20) 12/03/22 13:12 Urine Color Yellow (Yellow) 12/03/22 14:35 Urine Appearance Sl hazy (CLEAR) A 12/03/22 14:35 Urine pH 6 (5-7) 12/03/22 14:35 Ur Specific [place] 1.010 (1.005-1.030) 12/03/22 14:35 Urine Protein 1+ (Negative) H 12/03/22 14:35 Urine Glucose (UA) Norm (Normal) 12/03/22 14:35 Urine Ketones Negative (Negative) 12/03/22 14:35 Urine Blood Neg (Negative) 12/03/22 14:35 Urine Nitrate Negative (Negative) 12/03/22 14:35 Urine Bilirubin Neg (Negative) 12/03/22 14:35 Urine Urobilinogen Norm mg/dL (Negative) 12/03/22 14:35 Ur Leukocyte Esterase Negative (Negative) 12/03/22 14:35 Urine RBC 0-4 /hpf (0-2) H 12/03/22 14:35 Urine WBC 0-4 /hpf (0-5) H 12/03/22 14:35 Ur Squamous Epith Cells 0-4 /hpf (0-5) H 12/03/22 14:35 Amorphous Sediment Not Reportable 12/03/22 14:35 Urine Bacteria None /hpf (NONE) 12/03/22 14:35 Vitals Last Vital Signs Temp 97.9 F 12/04/22 07:46 Pulse 97 12/04/22 08:46 Resp 24 H 12/04/22 07:46 BP 128/79 12/04/22 07:46 Pulse Ox 92 12/04/22 08:46 O2 Del Method Nasal Cannula 12/04/22 08:46 O2 Flow Rate 2 12/04/22 08:46 Discharge Plan Discharge Patient Disposition: Home Condition: Stable Prescriptions: New metoprolol tartrate 25 mg Tablet 25 mg PO BID@0900,2100 Qty: 60 0RF furosemide 40 mg tablet 40 mg PO DAILY Qty: 30 0RF Continued loratadine [Claritin] 10 mg Tablet 10 mg PO DAILY Eliquis 5 mg tablet 5 mg PO QAM Crestor 20 mg Tablet 10 mg PO DAILY Discharge Orders: Discharge Order (Routine); Ordered 12/04/22 Ordered By: Devon Walters Referrals: Cristina Goncalves MD [Referring] - 12/16/22 2:30 pm Dang Locke FNP [Nurse Practitioner] - 1 week (AFib w RVR, CHF) Discharge Diet: Cardiac Discharge Activity: Increase activity as tolerated Patient Instructions: Metoprolol (By mouth), Furosemide (By mouth), Heart Failure (DC), A-fib (Atrial Fibrillation) (GEN), Aortic Stenosis (GEN), CHF Stoplight, Opioid Safety Activity Restrictions/Additional Instructions: Please follow-up with your primary doctor for reassessment after exacerbation of congestive heart failure, as well as atrial fibrillation with fast heart rate. You are started on metoprolol and Lasix for both these conditions. Please see financial aid advisor for assessment of congestive heart failure, atrial fibrillation as well as severe aortic stenosis. Monitor blood pressure and heart rates at least twice daily, write down values to bring to your appointment. Hold metoprolol and Lasix in case of blood pressure is low, less than 100 top number or less than 50 bottom number and seek medical attention. Seek medical attention in case getting progressively more short of breath, develop chest pain or pressure, fast heart rate, low blood pressure or any other concerning symptoms. Discharge Attestations Time Spent in Discharge Care*: greater than 30 min Quality Metrics Clinical Quality Measures [ No reported AMI, CVA or VTE this stay] Coding Level of Care Code 80670 Total time (in minutes) for Discharge: 50 Diagnoses Acute decompensated heart failure I50.9 Atrial fibrillation with rapid ventricular response I48.91
--- NOTE | 2022-12-04 14:04 | PC.NURSE ---
discharge instructions given and explained to pt and cg.both verb understanding of instructions.discharged via w/c to exit at this time.cg to drive pt home
--- NOTE | 2022-12-04 14:22 | PC.NURSE ---
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
--- NOTE | 2022-12-04 14:43 | PC.NURSE ---
printed discharge handed to pt looks different than the computer version (? why).discussed with dr lawson.pt is to resume potassium,amlodipine,spironolactone,finesteride,eliquis..in addition to new scrips for lasix and metoprolol.juan (cg) contacted again..and she verb understanding of medications
== END 2022-12-04 14:23 | disposition home or self-care (01) | DRG 291 ==
LOC: ER 13:46 → CSU 14:04
PROVIDERS: Admitting Provider Internal Medicine; Emergency Provider Family Medicine; PCP Family Medicine; Visit Provider Internal Medicine
DX: I11.0 Hypertensive heart disease with heart failure (principal); I50.31 Acute diastolic (congestive) heart failure; J96.91 Respiratory failure, unspecified with hypoxia; I48.20 Chronic atrial fibrillation, unspecified; I31.39 Other pericardial effusion (noninflammatory); Z79.01 Long term (current) use of anticoagulants; Z91.148 Patient's other noncompliance with medication regimen for other reason; I50.9 Heart failure, unspecified; I35.0 Nonrheumatic aortic (valve) stenosis; Z97.4 Presence of external hearing-aid; Z99.81 Dependence on supplemental oxygen; I27.20 Pulmonary hypertension, unspecified; R77.8 Other specified abnormalities of plasma proteins; H91.90 Unspecified hearing loss, unspecified ear
CPT/HCPCS: 36415; 36600; 51702; 71045; 80048; 80051; 80053; 81001; 82330; 82805; 83735; 83880; 84443; 84484; 85025; 93005; 94760; 96374; 96376; 99285; C8929; J1940; Q9956

== ENCOUNTER → 2022-12-15 11:33 | Outpatient (BNVA) | payer OTHER, SELFPAY | PROVIDERS: PCP Family Medicine; Visit Provider Internal Medicine Cardiovascular Disease | DX: J96.91 Respiratory failure, unspecified with hypoxia (principal); I48.91 Unspecified atrial fibrillation; I35.0 Nonrheumatic aortic (valve) stenosis; I27.20 Pulmonary hypertension, unspecified; I11.0 Hypertensive heart disease with heart failure; I50.9 Heart failure, unspecified; Z79.01 Long term (current) use of anticoagulants | CPT/HCPCS: 99214 ==

== ENCOUNTER 2023-01-07 11:07 | Emergency (ER) | payer OTHER, SELFPAY ==
--- NOTE | 2023-01-07 11:17 | USCV_ITS ---
Yuri Joe Age: 82 Gender: M : 1940 Exam Date: 01/07/2023 12:21 Ordering Phys: Santi Small MD Technologist: Marcos Kolb Exam Location: [facility] – [place] Indication: Rt leg pain and edema PROCEDURES: Venous duplex imaging was performed in only the right lower extremity. The following venous structures were evaluated: common femoral vein, profunda vein, proximal portion of the greater saphenous vein, superficial femoral vein, and the popliteal vein. In addition, the posterior tibial and peroneal trunk were evaluated. FINDINGS: Normal 2-D Doppler and augmentation and compressibility throughout the lower extremity venous structures. Additional imaging through the proximal calf veins also reveals no thrombus. Limited evaluation of the greater saphenous vein is patent with no thrombus. CONCLUSIONS No evidence of right lower extremity DVT. Popliteal cyst measuring 3.6 x 2.5cm Gordo Alvarado MD (Electronically Signed) Final Date: 07 January 2023 13:50 S
[2023-01-07 11:23] VITALS: BP 146/101; PULSE 99; RESP 19; TEMP 36.7; O2SAT 91; BMI 31.9
--- NOTE | 2023-01-07 12:25 | XRR_ITS ---
PROCEDURE INFORMATION: Exam: XR Chest Exam date and time: 01/07/2023 12:32 PM Age: 82 years old Clinical indication: Shortness of breath; Additional info: SOB TECHNIQUE: Imaging protocol: Radiologic exam of the chest. Views: 1 view. COMPARISON: 1. CR XR chest 1V portable [id number] 12/03/2022 12:[address] [facility] [id number] 09/30/2022 3:48 PM FINDINGS: Lungs: Opacification of the inferior left lung with obscuration of the left heart border and left hemidiaphragm similar to the findings on 12/03/2022. Left upper lung is clear. Right lung is clear. Pleural spaces: No pneumothorax. The left lateral costophrenic sulcus is blunted. Heart/Mediastinum: Cardiac silhouette is enlarged. Bones/joints: Chronic deformity of right posterolateral 6th and 7th ribs. No acute fracture. XR/XR chest 1V portable [id number] IMPRESSION: 1. No change since 12/03/2022. 2. Opacification of the inferior left hemithorax due at least in part to cardiac enlargement and prominent epicardiac fat pad visible on chest CT 09/30/2022. Superimposed infection or atelectasis cannot be excluded.
--- NOTE | 2023-01-07 12:25 | ECG_ITS ---
[facility] Test Date: 2023-01-07 Pat Name: Yuri Joe Department: Room: Gender: Male Talcer: : 1940 Requested By: Santi Small Order Number: [id number] Romina MD: Mahnaz Spears M.D. Measurements Intervals [place] Rate: 80 P: 0 [place]: 0 QRS: 139 QRSD: 96 T: 49 QT: 362 QTc: 420 Interpretive Statements ATRIAL FIBRILLATION PATTERN CONSISTENT WITH PULMONARY DISEASE INCOMPLETE RIGHT BUNDLE BRANCH BLOCK [90+ ms QRS DURATION, TERMINAL R IN V1/V2, 40+ ms S IN I/aVL/V4/V5/V6] RIGHT VENTRICULAR HYPERTROPHY [SOME/ALL OF: PROMINENT R IN V1, LATE TRANSITION, RAD, PAULO, SSS] Compared to ECG 12/03/2022 20:38:42 Atrial abnormality now present Right ventricular hypertrophy now present Myocardial infarct finding no longer present Electronically Signed On 01-07-2023 21:23:52 CDT by Mahnaz Spears M.D. [id number]
--- NOTE | 2023-01-07 12:32 | ED_ITS ---
HPI - Extremity Problem General: Chief complaint: Extremity Problem,Nontraumatic Stated complaint: [facility] by [facility] Time Seen by Provider: 01/07/23 12:05 Source: patient Mode of arrival: ambulatory Limitations: no limitations History of Present Illness: 82-year-old male has a history of congestive heart failure along with A-fib he was [place] here [place] [facility] due to lower leg swelling. He states that he had recently stopped all his meds he states that he believes that [facility] has not been taking his Lasix he states the swelling is progressed over the last 4 to 5 days he denies any pain he denies any shortness of breath Associated symptoms: Deny chest pain, fever(s) or rash Review of Systems Const: Denies: fever(s) or chills ENMT: Denies: throat pain or dental pain Card: Denies: chest pain Resp: Denies: dyspnea GI: Denies: abdominal pain, nausea, vomiting or diarrhea Musc: Reports: extremity swelling; Denies: neck pain or back pain Skin/Breast: Denies: rash Neuro: Denies: headache(s) PFSH ED PFSH: Medical History Atrial fibrillation Congestive heart failure Dyspnea on exertion Hypertension Hypoxia Moderate aortic stenosis 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 Social History Smoking and tobacco status: never smoked Second hand smoke exposure: No Alcohol intake: current Alcohol intake frequency: holidays/special occasions only Alcohol type: wine Substance/Drug Use: never Physical Exam Const: COMMON NORMALS: no acute distress, patient oriented x3 and healthy appearing HENMT: COMMON NORMALS: normocephalic and atraumatic HEAD & SCALP: normocephalic and atraumatic Neck/C-Spine: COMMON NORMALS: full ROM and supple Chest: COMMONS NORMALS: normal inspection of the chest Resp: COMMON NORMALS: normal respiratory effort, No retractions, No use of accessory muscles and clear to auscultation bilaterally AUSCULTATION: clear to auscultation bilaterally Cardio: COMMON NORMALS: regular rate, regular rhythm and No murmurs present (Cardio) RATE: regular rate RHYTHM: regular rhythm GI: COMMON NORMALS: Normal to inspection, nondistended, normoactive bowel sounds present, Soft to palpation, non-tender and no masses PALPATION: Yes Soft to palpation Extremity: NARRATIVE EXTREMITY EXAM: 2+ edema Neuro: COMMON NORMALS: patient oriented x3, moves all extremities and no focal motor deficits Psych: COMMON NORMALS: mental status grossly normal, Normal thought process present and cooperative THOUGHT PROCESS: Normal thought process present Skin: COMMON NORMALS: no rashes or lesions noted and no wounds GENERAL SKIN EXAM: no rashes or lesions noted Course Vital Signs: Vital signs: Vital Signs Temperature 98.0 F 01/07/23 11:23 Pulse Rate 99 01/07/23 11:23 Respiratory Rate 19 H 01/07/23 11:23 Blood Pressure 146/101 01/07/23 11:23 Pulse Oximetry 91 01/07/23 11:23 Oxygen Delivery Me thod Room Air 01/07/23 11:23 MDM - Extremity (Nontraumatic) Medical Decision Making Patient presents here with lower extremity edema I he has a history of edema and CHF x-ray shows no signs of pulmonary congestion he has no hypoxia here he is u rinating here after Lasix he has not been taking any of his meds we will refill his meds including his Lasix he is to follow-up with PCP and return if worsening he understands agrees to plan. Medical Records I reviewed the patient's medical records. Lab Data I reviewed the patient's lab results. 01/07/23 13:00 01/07/23 13:00 Radiology Impressions Chest X-Ray 01/07/23 12:25 IMPRESSION: 1. No change since 12/03/2022. 2. Opacification of the inferior left hemithorax due at least in part to cardiac enlargement and prominent epicardiac fat pad visible on chest CT 09/30/2022. Superimposed infection or atelectasis cannot be excluded. Laboratory Results WBC 7.08 10^3/uL (3.29-11.43) 01/07/23 13:00 RBC 4.71 10^6/uL (3.85-5.65) 01/07/23 13:00 Hgb 14.00 g/dL (11.27-16.99) 01/07/23 13:00 Hct 44.9 % (37-53) 01/07/23 13:00 MCV 95.3 fl (82-101) 01/07/23 13:00 MCH 29.7 pg (27-33) 01/07/23 13:00 MCHC 31.2 g/dL (30-55) 01/07/23 13:00 RDW 13.9 % (12.1-15.1) 01/07/23 13:00 Plt Count 190 10^3/cmm (157-399) 01/07/23 13:00 MPV 11.1 fL (7.4-10.4) H 01/07/23 13:00 Neut % (Auto) 72.5 % 01/07/23 13:00 Lymph % (Auto) 18.1 % 01/07/23 13:00 [place] % (Auto) 8.5 % 01/07/23 13:00 Eos % (Auto) 0.3 % 01/07/23 13:00 Baso % (Auto) 0.3 % 01/07/23 13:00 Neut # (Auto) 5.14 10^3/uL (1.8-7.7) 01/07/23 13:00 Lymph # (Auto) 1.3 10^3/uL (0.8-4.8) 01/07/23 13:00 [place] # (Auto) 0.6 10^3/uL (0.2-0.9) 01/07/23 13:00 Eos # (Auto) 0.0 10^3/uL (0.0-0.8) 01/07/23 13:00 Baso # (Auto) 0.0 10^3/uL (0.0-0.1) 01/07/23 13:00 Nucleated RBC % (auto) 0 % 01/07/23 13:00 Nucleated RBCs # 0.0 /100WBC 01/07/23 13:00 PT 16.10 SECONDS (12.1-14.9) H 01/07/23 13:00 INR 1.24 (0.8-1.2) H 01/07/23 13:00 Sodium 139 mmol/L (136-145) 01/07/23 13:00 Potassium 5.2 mmol/L (3.5-5.1) H 01/07/23 13:00 Chloride 105 mmol/L (98-107) 01/07/23 13:00 Carbon Dioxide 27 mmol/L (22-29) 01/07/23 13:00 Anion Gap 12.2 (5-19) 01/07/23 13:00 BUN 16 mg/dL (8-23) 01/07/23 13:00 Creatinine 0.9 mg/dL (0.7-1.2) 01/07/23 13:00 GFR Calculation Not Reportable 01/07/23 13:00 Glucose 116 mg/dL (65-115) H 01/07/23 13:00 Calculated Osmolality 290 mOsm/kg (285-295) 01/07/23 13:00 Calcium 9.1 mg/dL (8.5-10.5) 01/07/23 13:00 Total Bilirubin 0.6 mg/dL (0.15-1.2) 01/07/23 13:00 AST 10 U/L (0-40) 01/07/23 13:00 ALT 12 U/L (0-41) 01/07/23 13:00 Alkaline Phosphatase 54 U/L (40-130) 01/07/23 13:00 NT-Pro-B Natriuret Pep 6603 pg/mL (0-450) H 01/07/23 13:00 Total Protein 6.8 g/dL (6.6-8.7) 01/07/23 13:00 Albumin 3.6 g/dL (3.5-5.2) 01/07/23 13:00 Globulin 3.2 g/dL (1.3-4.6) 01/07/23 13:00 EKG Data EKG 1: I personally reviewed and interpreted this EKG as follows: EKG interpretation date: 01/07/23 EKG interpretation time: 12:47 Interpretation: afib hr [address] or t wave abnormalities qrs 96 qtc 398 Discharge Plan Discharge Patient Disposition: Home Clinical Impression: Localized swelling of both lower legs Condition: Stable Prescriptions: Continued furosemide 40 mg Tablet 40 mg PO DAILY Qty: 60 0RF finasteride 5 mg tablet 5 mg PO DAILY Qty: 30 0RF Eliquis 5 mg tablet 5 mg PO QAM Qty: 60 0RF potassium chloride 20 mEq Tablet Extended Release 20 meq PO DAILY Qty: 15 0RF No Action metoprolol tartrate 25 mg tablet 25 mg PO DAILY loratadine [Claritin] 10 mg Tablet 10 mg PO DAILY spironolactone 25 mg Tablet 25 mg PO DAILY Discharge Orders: Discharge ED (Routine); Ordered 01/07/23 Ordered By: Santi Small Referrals: Nell Mendez MD [Primary Care Provider] - 1-3 days Discharge Diet: Advance as tolerated Discharge Activity: Resume usual activity Patient Instructions: Leg Edema (ED) Coding Level of Care Code ED Lockstitch Back Maker for Danish Mckee
[2023-01-07] MEDS: FUROsemide 10 mg/mL SDV 10mL 60 MG IVP (13:06)
[2023-01-07 13:07] LABS: Basophils % 0.3 %; Eosinophils % 0.3 %; Hematocrit 44.9 % (37-53); Lymphocytes # 1.3 10^3/uL (0.8-4.8); Lymphocytes % 18.1 %; Mean Corpuscular HGB Conc 31.2 g/dL (30-55); Mean Corpuscular Hemoglobin 29.7 pg (27-33); Mean Corpuscular Volume 95.3 fl (82-101); Mean Platelet Volume 11.1 fL (7.4-10.4); Monocytes # 0.6 10^3/uL (0.2-0.9); Monocytes % 8.5 %; Neutrophils # 5.14 10^3/uL (1.8-7.7); Neutrophils % 72.5 %; Nucleated Red Blood Cells % 0 %; Platelet Count 190 10^3/cmm (157-399); Red Blood Count 4.71 10^6/uL (3.85-5.65); Red Cell Distribution Width 13.9 % (12.1-15.1); White Blood Count 7.08 10^3/uL (3.29-11.43)
[2023-01-07 13:18] LABS: INR 1.24 (0.8-1.2)
[2023-01-07 13:37] LABS: Alanine Aminotransferase 12 U/L (0-41); Albumin Level 3.6 g/dL (3.5-5.2); Alkaline Phosphatase 54 U/L (40-130); Anion Gap 12.2 (5-19); Aspartate Amino Transferase 10 U/L (0-40); Blood Urea Nitrogen 16 mg/dL (8-23); Calcium 9.1 mg/dL (8.5-10.5); Carbon Dioxide 27 mmol/L (22-29); Chloride 105 mmol/L (98-107); Globulin 3.2 g/dL (1.3-4.6); Glucose 116 mg/dL (65-115); NT Pro B Type Natriuretic Pept 6603 pg/mL (0-450); Osmolality Calculated 290 mOsm/kg (285-295); Potassium 5.2 mmol/L (3.5-5.1); Sodium 139 mmol/L (136-145); Total Bilirubin 0.6 mg/dL (0.15-1.2); Total Protein 6.8 g/dL (6.6-8.7)
== END 2023-01-07 14:00 | disposition home or self-care (01) ==
PROVIDERS: Emergency Provider Emergency Medicine; PCP Family Medicine
DX: M79.89 Other specified soft tissue disorders (principal); Z79.01 Long term (current) use of anticoagulants; I11.0 Hypertensive heart disease with heart failure; I50.9 Heart failure, unspecified
CPT/HCPCS: 71045; 80053; 83880; 85025; 85610; 93005; 93971; 96374; 99285; J1940

== ENCOUNTER 2023-02-09 08:50 | Inpatient (IN) | payer OTHER, SELFPAY ==
[2023-02-09] VITALS (141 sets, daily range): BP systolic 82–152; BP diastolic 44–111; PULSE 79–156; RESP 8–48; TEMP 35.5–37.2; O2SAT 77–98; BMI 38.0
--- NOTE | 2023-02-09 08:52 | XRR_ITS ---
PROCEDURE INFORMATION: Exam: XR Chest Exam date and time: 02/09/2023 9:45 AM Age: 82 years old Clinical indication: Bronchospasm and dyspnea and shortness of breath; Additional info: Dyspnea/cough TECHNIQUE: Imaging protocol: Radiologic exam of the chest. Views: 1 view. COMPARISON: CR XR chest 1V portable [id number] 01/07/2023 12:32 PM FINDINGS: Lungs: Low lung volumes. No focal consolidation in the upper lungs. Pleural spaces: [id number] bilateral pleural effusions. No significant pneumothorax. Heart/Mediastinum: Cardiomediastinal silhouette is midline and partially obscured. Bones/joints: Osseous structures are unchanged. XR/XR chest 1V portable [id number] IMPRESSION: [id number] bilateral pleural effusions.
--- NOTE | 2023-02-09 08:58 | ECG_ITS ---
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 Measurements Intervals [place] Rate: 144 P: 0 [place]: 0 QRS: 138 QRSD: 98 T: 3 QT: 277 QTc: 429 Interpretive Statements ATRIAL FIBRILLATION WITH RAPID VENTRICULAR RESPONSE PATTERN CONSISTENT WITH PULMONARY DISEASE INCOMPLETE RIGHT BUNDLE BRANCH BLOCK [90+ ms QRS DURATION, TERMINAL R IN V1/V2, 40+ ms S IN I/aVL/V4/V5/V6] Compared to ECG 01/07/2023 12:47:50 Right ventricular hypertrophy no longer present Atrial abnormality no longer present Electronically Signed On 02-09-2023 11:45:49 CDT by Joey Courtney M.D. [id number] f
--- NOTE | 2023-02-09 09:01 | W.ED.SOB ---
HPI - SOB/Dyspnea General: Chief Complaint: Shortness of Breath/Dyspnea Stated Complaint: sob Time Seen by Provider: 02/09/23 08:51 Source: patient and EMS Mode of arrival: EMS History of Present Illness: HPI Narrative: 22-year-old male presented to the emergency room via EMS. Evidently the neighbors found him in a chair has not been able to get up in the chair for an unknown length of time he is hypoxic and very short of breath he is tachycardic and is appears to be in atrial fibrillation on arrival here monitor looking at his rhythm strip twelve-lead EKG done in the field shows the same. He has a history of A-fib congestive heart failure and severe pulmonary hypertension. He was given 20 mg dexamethasone in the field they are unable to get a IV line. He denies any chest pain only complains of shortness of breath MD elicited complaint: shortness of breath Pertinent past history: congestive heart failure Onset (ago): unknown Timing: constant Severity: severe Exacerbating factors: exertion and coughing Relieving factors: oxygen, rest, bronchodilators and upright position Known history of: COPD and congestive heart failure Associated symptoms: Reports chest congestion, cough, nausea and orthopnea; Deny abdominal pain, chest pain, diaphoresis, dizziness, extremity pain, fever(s), hemoptysis, lightheadedness, myalgias, palpitations, paresthesias, polydipsia, polyuria, rash, sense of impending doom, syncope, vomiting or other Treatment prior to arrival: oxygen, bronchodilator and other (Dexamethasone) Review of Systems Const: Denies: fever(s) or diaphoresis Card: Reports: orthopnea; Denies: chest pain, palpitations, lightheadedness or syncope Resp: Reports: chest congestion; Denies: hemoptysis GI: Reports: nausea; Denies: abdominal pain or vomiting : Denies: dysuria, urinary frequency or urinary urgency Musc: Denies: extremity pain Skin/Breast: Denies: rash Neuro: Denies: dizziness Endo: Denies: polyuria or polydipsia PFS ED PFSH: Medical History (Updated 02/09/23 @ 11:47 by Steven Gama DO) Atrial fibrillation Congestive heart failure Dyspnea on exertion Hyperlipidemia Hypertension Hypoxia Moderate aortic stenosis 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 Social History Smoking and tobacco status: never smoked Second hand smoke exposure: No Alcohol intake: current Alcohol intake frequency: holidays/special occasions only Alcohol type: wine Substance/Drug Use: never Physical Exam Const: COMMON NORMALS: no acute distress GENERAL APPEARANCE: cooperative and comfortable ORIENTATION/CONSCIOUSNESS: Yes awake, Yes oriented to person, Yes oriented to place and Yes oriented to time HENMT: COMMON NORMALS: normocephalic, atraumatic and hearing grossly normal bilaterally HEAD & SCALP: normocephalic and atraumatic Resp: COMMON NORMALS: normal respiratory effort, No retractions, No use of accessory muscles and clear to auscultation bilaterally AUSCULTATION: clear to auscultation bilaterally Cardio: COMMON NORMALS: regular rate, regular rhythm and No murmurs present (Cardio) RATE: regular rate RHYTHM: regular rhythm GI: COMMON NORMALS: Soft to palpation and No hepatosplenomegaly present AUSCULTATION: Yes normoactive bowel sounds PALPATION: Yes Soft to palpation, No Tenderness to palpation present (GI), No Guarding due to palpation present (GI) and Yes No hepatosplenomegaly present Extremity: COMMON NORMALS: normal to inspection, capillary refill normal, no clubbing, cyanosis or edema, no calf tenderness and no pedal edema Neuro: SENSORIUM/ORIENTATION: Yes oriented to person, Yes oriented to place and Yes oriented to time Skin: COMMON NORMALS: no rashes or lesions noted GENERAL SKIN EXAM: no rashes or lesions noted Course Vital Signs: Vital signs: Vital Signs Temperature 98.1 F 02/09/23 08:51 Pulse Rate 89 02/09/23 11:39 Respiratory Rate 26 H 02/09/23 11:39 Blood Pressure 115/57 02/09/23 11:39 Pulse Oximetry 96 02/09/23 11:39 Oxygen Delivery Me thod BiPAP 02/09/23 10:07 Oxygen Flow Rate 6 02/09/23 08:51 Fraction of Inspir ed Oxygen 50 02/09/23 10:08 MDM - SOB/Dyspnea Medical Decision Making Patient is in acute congestive heart failure is a history of aortic stenosis. Also has acute kidney injury bilateral pleural effusions. Did give Lasix he first arrived he started. He fluid overloaded. Discussed with Dr. Dominique will admit to ICU. ABG shows respiratory acidosis improved with BiPAP. Patient initially was in A-fib with RVR on arrival that was controlled by IV push Cardizem followed up with a Cardizem drip. He did once his rate was controlled we titrated his Cardizem drip back down due to mild hypotension. Differential Diagnosis Likely acute exacerbation of chronic obstructive airways disease and congestive heart failure Medical Records I reviewed the patient's medical records. Lab Data I reviewed the patient's lab results. 02/09/23 08:19 02/09/23 08:19 Labs/Radiology: Radiology Impressions Chest X-Ray 02/09/23 08:52 IMPRESSION: Eipin-kk-nqevkmxb bilateral pleural effusions. Laboratory Results WBC 11.11 10^3/uL (3.29-11.43) 02/09/23 08:19 RBC 5.02 10^6/uL (3.85-5.65) 02/09/23 08:19 Hgb 14.30 g/dL (11.27-16.99) 02/09/23 08:19 Hct 46.9 % (37-53) 02/09/23 08:19 MCV 93.4 fl (82-101) 02/09/23 08:19 MCH 28.5 pg (27-33) 02/09/23 08:19 MCHC 30.5 g/dL (30-55) 02/09/23 08:19 RDW 14.0 % (12.1-15.1) 02/09/23 08:19 Plt Count 322 10^3/cmm (157-399) 02/09/23 08:19 MPV 12.9 fL (7.4-10.4) H 02/09/23 08:19 Lymph % (Auto) Not Reportable 02/09/23 08:19 [place] % (Auto) Not Reportable 02/09/23 08:19 Lymph # (Auto) Not Reportable 02/09/23 08:19 [place] # (Auto) Not Reportable 02/09/23 08:19 Total Counted 100 (0-100) 02/09/23 08:19 Atypical Lymphs % 0.0 % (0-5) 02/09/23 08:19 Absolute Neutrophils 9.3 10^3/cmm (1.4-6.5) H 02/09/23 08:19 Segmented Neutrophils 63 % 02/09/23 08:19 Abs Segm Neuts (Man) 7.0 10/cmm (1.6-7.1) 02/09/23 08:19 Band Neutrophils 21.0 % 02/09/23 08:19 Abs Band Neuts (Man) 2.3 10^3/cmm (0.0-1.2) H 02/09/23 08:19 Absolute Lymphocytes 1.1 10^3/cmm (1.2-3.4) L 02/09/23 08:19 Lymphocytes (Manual) 10 % 02/09/23 08:19 Monocytes (Manual) 3.0 % 02/09/23 08:19 Absolute Monocytes 0.3 10^3/cmm (0.1-0.6) 02/09/23 08:19 Eosinophils (Manual) 0 % 02/09/23 08:19 Absolute Eosinophils 0.0 10^3/cmm (0.0-0.7) 02/09/23 08:19 Basophils (Manual) 0.0 % 02/09/23 08:19 Absolute Basophils 0.0 10^3/cmm (0.0-0.2) 02/09/23 08:19 Metamyelocytes 3.0 % 02/09/23 08:19 Platelet Estimate Normal (Normal) 02/09/23 08:19 Giant Platelets Trace 02/09/23 08:19 Specimen Type Arterial 02/09/23 08:52 Sample Site Radial, left 02/09/23 08:52 ABG pH 7.30 (7.35-7.45) L 02/09/23 08:52 ABG pCO2 77.9 mmHg (35-45) H* 02/09/23 08:52 ABG pO2 104.0 mmHg (80.0-100.0) H 02/09/23 08:52 ABG HCO3 38.0 mmol/L (22-26) H 02/09/23 08:52 ABG O2 Saturation 97.3 02/09/23 08:52 ABG Base Excess 8.2 mmol/L (-2.0-2.0) H 02/09/23 08:52 Con Test Pos 02/09/23 08:52 A-a O2 Gradient Not Reportable 02/09/23 08:52 Hematocrit 43.9 % (42-52) 02/09/23 08:52 Hgb O2 Saturation 95.3 % (95-100) 02/09/23 08:52 Carboxyhemoglobin 1.8 %THgb (0.4-20.1) 02/09/23 08:52 Methemoglobin 0.3 % (0.4-1.5) L 02/09/23 08:52 Total Hemoglobin 14.3 g/dL (14-18) 02/09/23 08:52 Sodium 131.0 mmol/L (131-143) 02/09/23 08:52 Potassium 4.7 mmol/L (3.5-5.0) 02/09/23 08:52 Glucose 172.0 mg/dL (70-115) H 02/09/23 08:52 Ionized Calcium 1.2 mmol/L (1.1-1.4) 02/09/23 08:52 O2 Delivery Device Nrb 02/09/23 08:52 O2 Liters/Min 15.0 % 02/09/23 08:52 Nylon Machine Operator ID Cak 02/09/23 08:52 Sodium 134 mmol/L (136-145) L 02/09/23 08:19 Potassium 5.0 mmol/L (3.5-5.1) 02/09/23 08:19 Chloride 83 mmol/L (98-107) L 02/09/23 08:19 Carbon Dioxide 33 mmol/L (22-29) H 02/09/23 08:19 Anion Gap 23.0 (5-19) H 02/09/23 08:19 BUN 71 mg/dL (8-23) H 02/09/23 08:19 Creatinine 2.6 mg/dL (0.7-1.2) H 02/09/23 08:19 GFR Calculation Not Reportable 02/09/23 08:19 Glucose 161 mg/dL (65-115) H 02/09/23 08:19 Calculated Osmolality 302 mOsm/kg (285-295) H 02/09/23 08:19 Lactic Acid 5.8 mmol/L (0.5-2.2) H* 02/09/23 10:25 Calcium 9.7 mg/dL (8.5-10.5) 02/09/23 08:19 Total Bilirubin 1.0 mg/dL (0.15-1.2) 02/09/23 08:19 AST 16 U/L (0-40) 02/09/23 08:19 ALT 15 U/L (0-41) 02/09/23 08:19 Alkaline Phosphatase 70 U/L (40-130) 02/09/23 08:19 Creatine Kinase 87 U/L (39-308) 02/09/23 08:19 Troponin T Baseline 151 ng/L (0-15) H* 02/09/23 08:19 Troponin T 120 Minute 154.0 ng/L (0-15) H 02/09/23 10:25 Delta Troponin T 3.0 ABS# (0-10) 02/09/23 10:25 Total Protein 6.9 g/dL (6.6-8.7) 02/09/23 08:19 Albumin 3.1 g/dL (3.5-5.2) L 02/09/23 08:19 Globulin 3.8 g/dL (1.3-4.6) 02/09/23 08:19 Urine Color Dark yellow (Yellow) 02/09/23 09:54 Urine Appearance Sl hazy (CLEAR) A 02/09/23 09:54 Urine pH 5 (5-7) 02/09/23 09:54 Ur Specific Mobile 1.020 (1.005-1.030) 02/09/23 09:54 Urine Protein Trace (Negative) 02/09/23 09:54 Urine Glucose (UA) Norm (Normal) 02/09/23 09:54 Urine Ketones Negative (Negative) 02/09/23 09:54 Urine Blood 2+ (Negative) H 02/09/23 09:54 Urine Nitrate Negative (Negative) 02/09/23 09:54 Urine Bilirubin 1+ (Negative) H 02/09/23 09:54 Urine Urobilinogen Norm mg/dL (Negative) 02/09/23 09:54 Ur Leukocyte Esterase 1+ (Negative) H 02/09/23 09:54 Urine RBC 5-10 /hpf (0-2) H 02/09/23 09:54 Urine WBC 10-15 /hpf (0-5) H 02/09/23 09:54 Ur Squamous Epith Cells 0-4 /hpf (0-5) H 02/09/23 09:54 Amorphous Sediment Not Reportable 02/09/23 09:54 Urine Bacteria Trace /hpf (NONE) 02/09/23 09:54 Hyaline Casts 10-15 /lpf H 02/09/23 09:54 Urine Mucus Trace /hpf 02/09/23 09:54 Ur Oval Fat Bodies 1+ /hpf 02/09/23 09:54 All radiology interpretation(s) finalized by discharge Critical Care Time Critical Care Time: Critical Care Time: Yes Total Critical Care Time: 45 Attestation: The high probability of a clinically significant, sudden or life threatening deterioration of the patient's cardiovascular respiratory system(s) required my full and direct attention, intervention and personal management. The critical care time is as shown. This time is in addition to time spent performing any reported procedures but includes the following: [x] Data and vital sign review and interpretation [x] Patient assessment, examination and intervention [x] Documentation [x] Medication orders and management Discharge Plan Discharge Admit Provider: Alvino Manzo Clinical Impression: Congestive heart failure, Respiratory failure with hypoxia, Atrial fibrillation with rapid ventricular response, Moderate aortic stenosis, 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, Bilateral pleural effusion Condition: Stable Coding Level of Care Code ED Adding Machine Servicer for Danish Mckee
[2023-02-09 09:03] LABS: Arterial Blood Gas Hematocrit 43.9 % (42-52); Base Excess ABG 8.2 mmol/L (-2.0-2.0); Blood Gas Allen Test Pos; Blood Gas Operator Identificat CAK; Blood Gas Sample Site Radial, left; Blood Gas Sample Type Arterial; Carboxyhemoglobin 1.8 %THgb (0.4-20.1); HGB O2 Sat 95.3 % (95-100); Ionized Calcium Level - ABG 1.2 mmol/L (1.1-1.4); Methemoglobin 0.3 % (0.4-1.5); Oxygen Device NRB; Oxygen Saturation ABG 97.3; Potassium Level - ABG 4.7 mmol/L (3.5-5.0); Total Hemoglobin 14.3 g/dL (14-18)
[2023-02-09 09:04] LABS: ABG PCO2 77.9 mmHg (35-45)
[2023-02-09 09:15] LABS: Hematocrit 46.9 % (37-53); Mean Corpuscular HGB Conc 30.5 g/dL (30-55); Mean Corpuscular Hemoglobin 28.5 pg (27-33); Mean Corpuscular Volume 93.4 fl (82-101); Mean Platelet Volume 12.9 fL (7.4-10.4); Platelet Count 322 10^3/cmm (157-399); Red Blood Count 5.02 10^6/uL (3.85-5.65); White Blood Count 11.11 10^3/uL (3.29-11.43)
[2023-02-09] MEDS: dilTIAZem 5 mg/mL SDV 5 mL 20 MG IVP (09:16)
[2023-02-09] MEDS: FUROsemide 10 mg/mL SDV 10mL 60 MG IVP (09:19)
[2023-02-09 09:42] LABS: Alanine Aminotransferase 15 U/L (0-41); Albumin Level 3.1 g/dL (3.5-5.2); Alkaline Phosphatase 70 U/L (40-130); Aspartate Amino Transferase 16 U/L (0-40); Blood Urea Nitrogen 71 mg/dL (8-23); Calcium 9.7 mg/dL (8.5-10.5); Carbon Dioxide 33 mmol/L (22-29); Chloride 83 mmol/L (98-107); Creatine Phosphokinase 87 U/L (39-308); Globulin 3.8 g/dL (1.3-4.6); Glucose 161 mg/dL (65-115); Osmolality Calculated 302 mOsm/kg (285-295); Sodium 134 mmol/L (136-145); Total Protein 6.9 g/dL (6.6-8.7)
[2023-02-09] MEDS: dilTIAZem 100 MG in sodium chloride 0.9% (add-van) 100 ML 10 MG IV (09:43)
--- NOTE | 2023-02-09 09:48 | PC.PHAR ---
pts caregiver verified pts medications-states the pts finasteride 5mg daily [facility] [employer] system shows er wrote rx on 01/07/23 caregiver states pt never filled rxs from er on 01/07/23-[employer] system also shows er wrote eliquis 5mg daily lasix 40mg qam kcl 20meq daily all on 01/07/23-medications entered is what pts caregiver states the pt takes waiting for [facility] to [facility]
[2023-02-09 09:55] LABS: Troponin(5th) Baseline 151 ng/L (0-15)
[2023-02-09] MEDS: ipratropium-albuterol 3 mL Neb INHALATION ×3 (10:07→19:23)
[2023-02-09 10:17] LABS: Slide Review Slide Review Perform
[2023-02-09 10:18] LABS: Absolute Neutrophil 9.3 10^3/cmm (1.4-6.5); Band Neutrophils Absolute 2.3 10^3/cmm (0.0-1.2); Eosinophils 0 %; Lymphocytes 10 %; Lymphocytes Absolute 1.1 10^3/cmm (1.2-3.4); Monocytes Absolute 0.3 10^3/cmm (0.1-0.6); Platelet Estimate Normal (Normal); Segmented Neutrophils 63 %; Total Cells Counted 100 (0-100)
[2023-02-09 10:19] LABS: Giant Platelets Trace
[2023-02-09 10:21] LABS: Add Urine Microscopic? YES; Bilirubin Urine 1+ (Negative); Blood Urine 2+ (Negative); Glucose Urine UA Norm (Normal); Ketones Urine Negative (Negative); Leukocyte Esterase Urine 1+ (Negative); Nitrate Urine Negative (Negative); Protein Urine Trace (Negative); Urine Appearance SL Hazy (CLEAR); Urine Color Dark Yellow (Yellow); Urobilinogen Urine Norm (Negative); pH Urine 5 (5-7)
[2023-02-09 10:25] LABS: Add Urine Culture? No; Bacteria Urine TRACE /hpf; Mucus Urine TRACE /hpf; Oval Fat Bodies Urine 1+ /hpf; Squamous Epithelial Cell Urine 0-4 /hpf (0-5)
--- NOTE | 2023-02-09 10:54 | ECG_ITS ---
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 Measurements Intervals [place] Rate: 102 P: 0 [place]: 0 QRS: 129 QRSD: 103 T: -18 QT: 336 QTc: 439 Interpretive Statements ATRIAL FIBRILLATION WITH RAPID VENTRICULAR RESPONSE PATTERN CONSISTENT WITH PULMONARY DISEASE INCOMPLETE RIGHT BUNDLE BRANCH BLOCK [90+ ms QRS DURATION, TERMINAL R IN V1/V2, 40+ ms S IN I/aVL/V4/V5/V6] RIGHT VENTRICULAR HYPERTROPHY [SOME/ALL OF: PROMINENT R IN V1, LATE TRANSITION, RAD, PAULO, SSS] ABNORMAL QRS-T ANGLE [QRS-T AXIS DIFFERENCE > 60] Compared to ECG 02/09/2023 08:58:41 Atrial abnormality now present Right ventricular hypertrophy now present Electronically Signed On 02-09-2023 11:46:08 CDT by Joey Courtney M.D. [email or web address]/OM/[id number]
[2023-02-09 10:55] LABS: Lactic Sepsis W/Reflex 5.8 mmol/L (0.5-2.2)
--- NOTE | 2023-02-09 11:03 | P.HP_ITS ---
Providers/Chief Complaint Admitting Physician: Alvino Manzo MD Primary Care Provider: Nell Mendez MD Chief Complaint: sob History of Present Illness Yuri Joe is a 82 year old male presented to the emergency department via ambulance with shortness of breath, fatigue, and increased fluid retention. He was placed on BiPAP, which made his speech difficult to understand, and he has difficulty hearing, so some of the history was provided by his neighbor, who acts as his roustabout pusher. His neighbor called the ambulance for him this morning after he failed to improve. She noticed he was having difficulty breathing beginning last night and has had decreased mobility over the past couple of days due to a back injury. He normally uses 2 L of oxygen at home, but it had to be increased to 3 L to assist with his shortness of breath. The patient's neighbor also notes that he has had more swelling in his extremities than usual. The patient has a significant history for CHF, pulmonary hypertension, atrial fibrillation, and aortic stenosis. He insists that he takes all of his medicine. He currently lives alone and is reported by his neighbor to generally be fairly active around the house. He denies any smoking history. No history of fever. During the emergency department course patient was given a bolus of diltiazem and placed on a diltiazem drip. He got IV Lasix, a DuoNeb treatment, and was placed on BiPAP. He received Levaquin IV. Review of Systems General: Reports: 10 or more systems reviewed and unremarkable except in HPI and below Card: Reports: swelling of feet/ankles; Denies: chest pain Resp: Reports: dyspnea Medications/Allergies Home Medications Medication Instructions Recorded Confirmed Last Taken Type loratadine 10 mg tablet (Claritin) 10 mg PO QAM 09/30/22 02/09/23 Unknown History metoprolol tartrate 25 mg tablet 25 mg PO BID 12/15/22 02/09/23 Unknown History albuterol sulfate 90 mcg/actuation 2 puff inhalation QID PRN 02/09/23 02/09/23 Unknown History aerosol inhaler Shortness Of Breath amlodipine 10 mg tablet 10 mg PO QAM 02/09/23 02/09/23 Unknown History apixaban 5 mg tablet (Eliquis) 5 mg PO BID 02/09/23 02/09/23 Unknown History furosemide 40 mg tablet 40 mg PO BID@,14 02/09/23 02/09/23 Unknown History potassium chloride 10 mEq 20 meq PO QAM 02/09/23 02/09/23 Unknown History tablet,extended release rosuvastatin 20 mg tablet (Crestor) 10 mg PO BEDTIME 02/09/23 02/09/23 Unknown History spironolactone 50 mg tablet 50 mg PO QAM 02/09/23 02/09/23 Unknown History Allergies Allergy/AdvReac Type Severity Reaction Status Date / Time No Known Allergies Allergy Verified 01/07/23 13:16 PFSH Acute PFSH: Medical History (Updated 02/09/23 @ 11:47 by Steven Gama DO) Atrial fibrillation Congestive heart failure Dyspnea on exertion Hyperlipidemia Hypertension Hypoxia Moderate aortic stenosis 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 Social History Smoking and tobacco status: never smoked Second hand smoke exposure: No Alcohol intake: current Alcohol intake frequency: holidays/special occasions only Alcohol type: wine Substance/Drug Use: never Vitals/I&O/Wt Last Vital Signs Temp 98.1 F 02/09/23 08:51 Pulse 100 02/09/23 10:19 Resp 22 H 02/09/23 10:07 BP 102/56 02/09/23 09:50 Pulse Ox 94 02/09/23 10:08 O2 Del Method BiPAP 02/09/23 10:07 O2 Flow Rate 6 02/09/23 08:51 FiO2 50 02/09/23 10:08 Weight last 48 hrs Weight 113.398 kg Physical Exam Narrative: General: pt is cooperative, became more alert over course of exam. He has di fficulty hearing and speech is unclear due to BiPAP mask. Pt has urinary catheter in place draining bloody/yellow fluid. Neck: supple, no lymphadenopathy. Heart: normal rate, irregular rhythm. Systolic crescendo murmur present on left sternal border. Lungs: decreased breath sounds, crackles present on ausculation. Abdomen: normoactive bowel sounds in all four quadrants. No abdominal tenderness , guarding. Extremities: 2+ peripheral pulses in upper extremities, diminished pulses in posterior tibialis in lower extremities. 2+ pitting edema noted up to knees bilaterally. Neuro: no focal deficits noted. Normal sensation and motor function bilaterally in lower extremities. Data 02/09/23 08:19 02/09/23 08:19 Other Labs: ABG demonstrates a pH 7.3, PCO2 of 78, PO2 of 104 on a 15 L nonrebreather. Typically he uses 2 L at home Calcium is 9.7, albumin low at 3.1 LFTs normal Troponin 151 with repeat of 154 Urinalysis with 5-10 reds, 10-15 whites, 0-4 squamous and 10-15 hyaline casts Chest x-ray reviewed by me demonstrates cardiomegaly, bilateral pleural effusion s, atherosclerotic disease noted in the aorta. EKG reviewed by me demonstrates atrial fibrillation with rapid ventricular rate with a heart rate of around 150. Right axis deviation. No ST elevation or significant depression. Previous echocardiogram in December demonstrated a normal EF, pulmonary artery pressure of 75, aortic stenosis that was severe with a valve area of 0.7 and moderate decrease RV function. A&P Assessment and plan (1) Acute respiratory failure with hypoxia and hypercapnia: Continue BiPAP treatment due to ongoing shortness of breath, decreased SpO2, and hypercapnia. Will work to discontinue BiPAP as diuresis of fluid overload progresses. (2) Acute diastolic heart failure: Maintain current urine catheterization so that pt can urinate in order to compensate for fluid overload. He has received 1 dose of IV Lasix in the emergency department. Secondary to his acute kidney injury, low albumin, pulmonary hypertension, obvious third spacing we will repeat his BMP later in the afternoon. If creatinine is improving consider repeat dose of Lasix. However, secondary to h is low albumin and third spacing if blood pressure is running low could consider initiation of albumin IV. Close follow-up with electrolytes daily in this patient with acute diastolic heart failure and acute kidney injury. (3) Acute kidney injury: Possible HITESH is due to urinary retention. Will also culture urine to rule out UTI. Maintain urinary catheterization to prevent urinary retention that would further kidney injury. Repeat labs this evening. [facility] daily Renal ultrasound Check CK to rule out rhabdomyolysis (4) Acute urinary retention: Maintain urinary catheterization to prevent further retention. Initiate Flomax for likely urinary retention secondary to enlargement of prostate. We will make sure blood pressure is stable prior to initiation. (5) Atrial fibrillation with rapid ventricular response: Maintain IV cardizem to normalize rate and rhythm. Taper off as tolerated Reinitiate his metoprolol Changes Eliquis to Lovenox in case any surgical procedures are needed. (6) Bilateral pleural effusion: CXR showed bilateral pleural effusions. Will treat pt's heart failure by diuresis and continue to monitor. Cannot rule out thoracentesis at this time. (7) 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: Patient has underlying severe pulmonary hypertension, which may limit the ability to fully diurese him depending upon blood pressure. (8) Elevated troponin: Troponin likely elevated due to aortic stenosis and heart strain related to his aortic stenosis. Will perform serial troponin measurements to track progression and ensure no further cardiac injury. Plan Possible UTI. Start Rocephin. Check urine culture. History of hyperglycemia with last hemoglobin A1c in October being 6.9%. Depending on sugars here may change to consistent carb diet. We will try to avoid insulin subcu currently. Multiple other medical problems as outlined in past medical history Allow natural Lovenox will suffice for DVT prophylaxis Protonix for GI prophylaxis Attestations Medical Necessity Statement*: Will require greater than 2 midnight stay for evaluation and treatment of acute respiratory failure with acute diastolic heart failure and acute kidney injury. High risk for decompensation and/or . Critical Care Time: The high probability of a clinically significant, sudden or life threatening deterioration of the patient's [renal, pulmonary, cardiac] system(s) required my full and direct attention, intervention and personal management. The critical care time is as shown. This time is in addition to time spent performing any reported procedures but includes the following: [x] Data and vital sign review and interpretation [x] Patient assessment, examination and intervention [x] Documentation [x] Medication orders and management Critical Care Time (min): 49 Coding Level of Care Code Critical Care >/= 30 minutes Critical care time (in minutes): 49 The high probability of a clinically significant, sudden or life threatening deterioration, as referenced in this documentation, required my full and direct attention, intervention and personal management. The critical care time shown is in addition to time spent performing any reported separately billable procedures and includes the following: [x] Data and vital sign review and interpretation [x ] Patient assessment, examination and intervention [x] Medication orders and management [x] Patient/Family updates as able [x] Care Coordination and Documentation. Diagnoses Acute respiratory failure with hypoxia and hypercapnia J96.01; J96.02 Acute diastolic heart failure I50.31 Acute kidney injury N17.9 Acute urinary retention R33.8 Atrial fibrillation with rapid ventricular response I48.91 Bilateral pleural effusion J90 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 I27.20 Elevated troponin R79.89
[2023-02-09] MEDS: levofloxacin-dextrose 5 % 500 MG/100 ML PREMIX 100 MG IV (11:42)
--- NOTE | 2023-02-09 11:53 | US_ITS ---
WS: [id number] RENAL ULTRASOUND HISTORY: renal failure COMPARISON: None available. TECHNIQUE: 2-D and color Doppler imaging of the kidney submitted. Right kidney: 11.0 cm x 5.3 cm x 5.8 cm. Cortex: 1.4 cm Normal echogenicity with no hydronephrosis or mass. Left kidney: 11.5 cm x 4.6 cm x 6.0 cm. Cortex: 1.7 cm Normal echogenicity with no hydronephrosis or mass. Aorta: Normal. Urinary Bladder: Nondistended. Quintero catheter is present. IMPRESSION: Normal renal ultrasound.
[2023-02-09 12:15] LABS: Reflex Lactate Order REFLEX LACTIC ORDERD
--- NOTE | 2023-02-09 12:50 | PC.NURSE ---
Cardizem drip running at 5mg/hr upon transfer to ICU. Titrated to 2.5mg/hr see MAR and vitals documentation for details.
[2023-02-09] MEDS: cefTRIAXone 1,000 MG in sodium chloride 0.9% (plus) 50 ML 100 MG IV (12:55)
[2023-02-09 13:06] LABS: Creatine Phosphokinase 91 U/L (39-308)
--- NOTE | 2023-02-09 13:55 | PC.NURSE ---
Wounds: Redness across buttock with scabbing, bilateral lower leg swelling with redness and dry pealing skin, right lower leg has slight scabbing.
--- NOTE | 2023-02-09 14:35 | ECG_ITS ---
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 Measurements Intervals Carmen Rate: 103 P: 0 MT: 0 QRS: 127 QRSD: 101 T: -34 QT: 342 QTc: 449 Interpretive Statements ATRIAL FIBRILLATION WITH RAPID VENTRICULAR RESPONSE INCOMPLETE RIGHT BUNDLE BRANCH BLOCK [90+ ms QRS DURATION, TERMINAL R IN V1/V2, 40+ ms S IN I/aVL/V4/V5/V6] RIGHT VENTRICULAR HYPERTROPHY [SOME/ALL OF: PROMINENT R IN V1, LATE TRANSITION, RAD, PAULO, SSS] ANTEROSEPTAL MYOCARDIAL INFARCTION , OF INDETERMINATE AGE [40+ ms Q WAVE IN V1-V4] Compared to ECG 02/09/2023 10:54:56 Myocardial infarct finding now present Electronically Signed On 02-09-2023 15:21:04 CDT by Joey Courtney M.D. [id number]
[2023-02-09 14:42] LABS: Lactic Acid level (Lactate) 4.1 mmol/L (0.5-2.2)
[2023-02-09 15:05] LABS: Anion Gap 13.8 (5-19); Calcium 9.1 mg/dL (8.5-10.5); Carbon Dioxide 37 mmol/L (22-29); Chloride 84 mmol/L (98-107); Glucose 187 mg/dL (65-115); Osmolality Calculated 299 mOsm/kg (285-295); Potassium 4.8 mmol/L (3.5-5.1); Sodium 130 mmol/L (136-145)
[2023-02-09 15:06] LABS: Troponin 5 6HR 115.1 ng/L (0-15); Troponin 5 6HR Delta -35.9 ng/L (0-12)
[2023-02-09 15:13] LABS: Blood Urea Nitrogen 81 mg/dL (8-23)
[2023-02-09] MEDS: acetaZOLAMIDE 250 mg Tablet PO (15:28)
[2023-02-09] MEDS: metoprolol tartrate 25 mg Tablet PO (17:52)
[2023-02-09] MEDS: enoxaparin 120 mg/0.8 mL Syringe 115 MG SUBCUT (17:52)
--- NOTE | 2023-02-09 19:13 | PC.NURSE ---
Change in mentation: During bedside report, pt was not able to answer questions and became very lethargic. Pt was off bipap for less than 30min. Pt sats were in the 70's, Pt placed back on bipap at 100%, pt sats began to rise, Pt BP in the 130's/80's, Pt's blood sugar was 202, HR rafa into the 130's. After pt placed back on Bipap, HR began to come down into the 110's with sats rising into the 90's. Dr Manzo notified of pt's change in mentation. Dr Manzo had no further orders for pt. Pt is a DNR. WE will notify phys if pt has any other changes.
[2023-02-09] MEDS: budesonide 0.5 mg/2 mL Neb INHALATION (19:23)
[2023-02-09] MEDS: albumin 25 G/100 ML BAG 60 G IV (19:42)
--- NOTE | 2023-02-09 20:23 | PC.NURSE ---
At bedside shift report patient presented lethargic and unable to follow commands or answer questions. Patient had been off of Bipap in order to eat for minimal period of time. BG was checked and patient was placed back on Bipap. Nursing staff consulted hospitalist in regards to patient change of status with no new orders received. Noted patient is AND. Patient pupils were equal and patient did have equal extremity movement. No stroke alert called due to these assessments. After approximately 20 min patient was able to answer questions and follow commands from staff. Patient will be encouraged to remain on Bipap through night with only minimal breaks if cooperate. Albumin informed consent was obtained after patient's status improved.
[2023-02-09] MEDS: FUROsemide 10 mg/mL SDV 4mL 40 MG IVP (22:00)
[2023-02-09] MEDS: atorvastatin 40 mg Tablet PO (22:00)
--- NOTE | 2023-02-09 22:28 | PC.NURSE ---
Patient unable to tolerate NC without decompensating into the 60s. Bedside swallow administered prior to oral medication and bipap placed back on with respiratory present. Hospitalist notified of increasing criss blood in olivia. order to recheck CBC and consider holding anticoags/thinners.
[2023-02-09] MEDS: sodium chloride 0.9% 500 ML 999 ML IV (22:48)
[2023-02-10] VITALS (61 sets, daily range): BP systolic 71–151; BP diastolic 43–98; PULSE 85–116; RESP 18–50; TEMP 36.8; O2SAT 91–99
[2023-02-10 00:05] LABS: Hematocrit 38.8 % (37-53); Mean Corpuscular HGB Conc 30.7 g/dL (30-55); Mean Corpuscular Volume 94.4 fl (82-101); Mean Platelet Volume 11.8 fL (7.4-10.4); Platelet Count 235 10^3/cmm (157-399); Red Blood Count 4.11 10^6/uL (3.85-5.65); Red Cell Distribution Width 13.9 % (12.1-15.1); White Blood Count 7.35 10^3/uL (3.29-11.43)
[2023-02-10 00:06] LABS: Slide Review Slide Review Perform
--- NOTE | 2023-02-10 00:26 | PC.NURSE ---
D/C Winnie: Updated Dr. Bill of CBC results and criss red blood in olivia catheter @0019. New order to robby/c Winnie @[id number].
[2023-02-10] MEDS: ipratropium-albuterol 3 mL Neb INHALATION ×3 (01:16→14:11)
[2023-02-10 02:04] LABS: Glucose Point of Care 202 mg/dL (70-110)
[2023-02-10] MEDS: albumin 25 G/100 ML BAG 60 G IV (02:22)
[2023-02-10 05:29] LABS: Basophils # 0.1 10^3/uL (0.0-0.1); Basophils % 0.8 %; Hematocrit 34.4 % (37-53); Lymphocytes # 0.3 10^3/uL (0.8-4.8); Lymphocytes % 4.9 %; Mean Corpuscular HGB Conc 31.4 g/dL (30-55); Mean Corpuscular Hemoglobin 28.9 pg (27-33); Mean Platelet Volume 12.3 fL (7.4-10.4); Monocytes # 0.3 10^3/uL (0.2-0.9); Neutrophils # 5.78 10^3/uL (1.8-7.7); Neutrophils % 89.4 %; Nucleated Red Blood Cells % 0 %; Platelet Count 214 10^3/cmm (157-399); Red Blood Count 3.74 10^6/uL (3.85-5.65); White Blood Count 6.47 10^3/uL (3.29-11.43)
[2023-02-10 05:50] LABS: Alanine Aminotransferase 11 U/L (0-41); Alkaline Phosphatase 51 U/L (40-130); Aspartate Amino Transferase 16 U/L (0-40); Calcium 8.9 mg/dL (8.5-10.5); Carbon Dioxide 37 mmol/L (22-29); Chloride 86 mmol/L (98-107); Globulin 2.9 g/dL (1.3-4.6); Glucose 174 mg/dL (65-115); Magnesium 4.7 mg/dL (1.7-2.3); Osmolality Calculated 303 mOsm/kg (285-295); Sodium 131 mmol/L (136-145); Total Bilirubin 0.8 mg/dL (0.15-1.2); Total Protein 5.9 g/dL (6.6-8.7)
[2023-02-10 05:55] LABS: Blood Urea Nitrogen 89 mg/dL (8-23)
--- NOTE | 2023-02-10 05:58 | PC.NURSE ---
Catheter Irrigation: Update Dr. Bill on criss red blood in olivia catheter @0553. 400ml in 6hrs w/ 1 clot noted. New order for PRN irrigation of urinary catheter.
[2023-02-10 05:59] LABS: Slide Review Slide Review Perform
[2023-02-10] MEDS: budesonide 0.5 mg/2 mL Neb INHALATION (07:48)
--- NOTE | 2023-02-10 08:30 | CT_ITS ---
WS: [id number] CT chest wo con [id number] HISTORY: bilateral effusions TECHNIQUE: Axial imaging performed through the thorax. Coronal and sagittal reformats are submitted. All CT scans at [facility] use at least one of these dose optimization techniques: automated exposure control; mA and/or kV adjustment per patient size (includes targeted exams where dose is mat ched to clinical indication); or iterative reconstruction. CONTRAST: None DLP: 797.77 mGy.cm COMPARISON: 09/30/2022 Quality this examination is significantly compromised by breathing motion artifact and beam hardening artifact from the patient's upper extremities. Lungs and central airway: Lung volumes are decreased. Mild bilateral subsegmental atelectasis but gre atest at the RIGHT lung base. There is no pneumonia or dense areas of consolidation. Normal vasculatu re. Pleura: Very small RIGHT pleural effusion. No LEFT pleural effusion. Heart and pericardium: Markedly enlarged heart. Mediastinum and fabio: No mediastinum or hilar adenopathy. Esophagus is fluid-filled to the level of t he junior. Vessels: Moderate atherosclerotic plaque within the aorta. There is ectatic thoracic aortic but no an eurysm. Pulmonary artery is also significantly enlarged. Pulmonary artery measures approximately 4 cm in transverse diameter. Chest wall and lower neck: No soft tissue masses. Mild diffuse soft tissue anasarca. Upper abdomen: Moderate elevation of the RIGHT hemidiaphragm. There is a loop of dilated colon in the RIGHT upper quadrant beneath the diaphragm with adjacent pericolonic fat stranding. There is marked fluid distention of the stomach. Osseous structures: No destructive bone lesions are identified. Remote rib fracture in the posterior mid RIGHT thorax. IMPRESSION: 1. Decreased lung volumes. 2. Very small RIGHT pleural effusion. No LEFT pleural effusion. 3. Marked fluid distention of the esophagus. Fluid distends the esophagus to the level of the junior. Patient at risk for aspiration. 4. Elevated RIGHT hemidiaphragm. 5. Marked fluid distention of the stomach. 6. Abnormal loop of GI tract which is probably the hepatic flexure in the RIGHT upper quadrant with a djacent pericolonic fat stranding. Recommend additional evaluation of the GI tract to exclude ischemi a. Recommend CT of the abdomen and pelvis. IV contrast if renal function will permit would be helpful . 7. Marked cardiomegaly. Notified Alvino Manzo MD at 02/10/2023 10:00 AM.
[2023-02-10] MEDS: dilTIAZem 100 MG in sodium chloride 0.9% (add-van) 100 ML IV (08:37)
--- NOTE | 2023-02-10 09:46 | P.PN_ITS ---
Documented by User: Kitty Dobbs 02/10/23 10:25 Subjective Subjective: Today, patient continues to have significant shortness of breath. A BiPAP removal attempt was unsuccessful as his oxygen saturations dropped down to the 60s-70s, so BiPAP has remained on since. He also continues to have blood draining from his olivia catheter. The catheter has had to be flushed multiple times to ensure adequate fluid removal. He remainder of his review of systems is negative. Vitals/I&O/Wt Last Vital Signs Temp 97.8 F 02/09/23 22:10 Pulse 111 H 02/10/23 08:00 Resp 30 H 02/10/23 08:00 BP 133/72 02/10/23 08:00 Pulse Ox 92 02/10/23 08:00 O2 Del Method BiPAP 02/10/23 07:48 O2 Flow Rate 6 02/09/23 08:51 FiO2 40 02/10/23 07:52 02/09/23 02/10/23 02/10/23 22:59 06:59 14:59 Intake Total 274.792 / 455.959 717.708 / 1173.667 6.542 / 6.542 Output Total 350 / 350 400 / 750 Balance -75.208 / 105.959 317.708 / 423.667 6.542 / 6.542 Weight last 48 hrs Weight 109.044 kg Weight 113.398 kg Physical Exam Narrative: General: patient is alert and wearing a BiPAP mask. He seems to understand when he is spoken too but has difficulty speaking due to BiPAP mask. Neck: supple Cardiac: irregular rhythm, tachycardic. Has history of murmur that is difficult to appreciate on physical exam due to coarse breath sounds. Respiratory: coarse breath sounds bilaterally. Abdomen: normoactive bowel sounds in all 4 quadrants. No abdominal tenderness, guarding. Mild abdominal distention present on exam. : olivia catheter placed draining bloody fluid. Extremities: 2+ pitting edema present in lower extremities bilaterally up to knee, but improved from yesterday. Palpable pulses in upper and lower extremities. Urinary Catheter Management: Olivia: Cath Placed During This Visit: yes Reason for Continuing Indwelling Catheter: Accurate Measurement of Urinary Output in Critically Ill Patients Urinary Catheter Date of Insertion: 02/09/23 Urinary Catheter Time of Insertion: 11:05 Data 02/10/23 04:39 02/10/23 04:39 Other Labs: Normocytic anemia present. Chemistries show low sodium (131), low chloride (86), high bicarbonate (37), stable creatinine at 2.4. Elevated blood glucose (174), elevated magnesium (4.7), low protein (5.9), low albumin (3.0). Awaiting blood and urine cultures. Micro: Microbiology 02/09/23 11:04 Blood Culture - Preliminary Blood SPECIMEN COLLECTED 02/09/23 11:00 Blood Culture - Preliminary Blood SPECIMEN COLLECTED A&P Assessment and plan (1) Acute respiratory failure with hypoxia and hypercapnia: Continue BiPAP treatment due to ongoing shortness of breath and decrease in oxygen saturations when mask is removed. Will work to discontinue BiPAP as shortness of breath improves. Obtain Non-contrast CT to assess pulmonary edema. Results of CT showed minimal right pleural effusion, with none on the left. Was significant for fluid distention of esophagus and of the stomach, putting the patient at risk for aspiration. (2) Acute diastolic heart failure: Maintain current urine catheterization so that pt can urinate in order to compensate for fluid overload. Hold lasix and albumin for now due to decreased urine output and ongoing kidney injury. Will repeat BMP and monitor pt fluid status to decide if they should be reinitiated. Close follow-up with electrolytes daily in this patient with acute diastolic heart failure and acute kidney injury. (3) Acute kidney injury: Possible HITESH is due to urinary retention. Waiting on urine culture results to assess for UTI as a potential contributer to HITESH. Maintain urinary catheterization to prevent urinary retention that would further kidney injury. BMP daily Renal ultrasound performed yesterday consistent with normal renal ultrasound. Awaiting CK results to rule out possible rhabdomyolysis (4) Acute urinary retention: Maintain urinary catheterization to prevent further retention. Consider Flomax for urinary retention secondary to enlargement of prostate. Ensure blood pressure is stable prior to initiation. (5) Atrial fibrillation with rapid ventricular response: Continue IV cardizem to normalize rate and rhythm. Taper off as tolerated Reinitiate his metoprolol Continue Lovenox for DVT prophylaxis. (6) Bilateral pleural effusion: CXR showed bilateral pleural effusions yesterday. Due to continued shortness of breath, non-contrast chest CT is ordered. It showed decreased lung volumes, but very small RIGHT pleural effusion and no LEFT pleural effusion. Also significant for esophageal and gastric distention. Will place NG tube to prevent risk of aspiration and will consider CT of abdomen and pelvis to assess fluid overload. (7) 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: Patient has underlying severe pulmonary hypertension, which may limit the ability to fully diurese him depending upon blood pressure. (8) Elevated troponin: Troponin likely elevated due to aortic stenosis and heart strain related to his aortic stenosis. Delta showed improvement of troponin levels. Will continue to monitor for recurrent chest pain. Plan Possible UTI. Start Rocephin. Still awaiting urine culture. Will adjust plan based on results. History of hyperglycemia with last hemoglobin A1c in October being 6.9%. Depending on sugars here may change to consistent carb diet. We will try to avoid insulin subcu currently. Abdominal Distention. Will place NG tube to prevent aspiration. Will consider CT abdomen/pelvis to assess for cause of gastric and esophageal distention after tube placement. Multiple other medical problems as outlined in past medical history Allow natural Lovenox will suffice for DVT prophylaxis Protonix for GI prophylaxis Coding Level of Care Code Critical Care >/= 30 minutes Diagnoses Acute respiratory failure with hypoxia and hypercapnia J96.01; J96.02 Acute diastolic heart failure I50.31 Acute kidney injury N17.9 Acute urinary retention R33.8 Atrial fibrillation with rapid ventricular response I48.91 Bilateral pleural effusion J90 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 I27.20 Elevated troponin R79.89 Documented by User: Alvino Manzo MD 02/10/23 10:52 Subjective Subjective: Today, patient continues to have significant shortness of breath. A BiPAP removal attempt was unsuccessful as his oxygen saturations dropped down to the 60s-70s, so BiPAP has remained on since. He also continues to have blood draining from his olivia catheter. The catheter has had to be flushed multiple times to ensure adequate fluid removal. He remainder of his review of systems is negative. I agree with above documentation. I also specifically asked the patient if he had any abdominal pain, and has not. He has trouble relating to being when he last had any flatus or bowel movement. Lovenox was discontinued when blood noted in his Olivia. Medications: Reviewed: Yes Physical Exam Narrative: General: patient is alert and wearing a BiPAP mask. He seems to understand when he is spoken too but has difficulty speaking due to BiPAP mask. Neck: supple Cardiac: irregular rhythm, tachycardic. Has history of murmur that is difficult to appreciate on physical exam due to coarse breath sounds. Respiratory: coarse breath sounds bilaterally. Abdomen: normoactive bowel sounds in all 4 quadrants. No abdominal tenderness, guarding. Mild abdominal distention present on exam. : olivia catheter placed draining bloody fluid. Extremities: 2+ pitting edema present in lower extremities bilaterally up to knee, but improved from yesterday. Palpable pulses in upper and lower extremities. Agree with above, I examined the patient as well. Urinary Catheter Management: Olivia: Cath Placed During This Visit: yes Data 02/10/23 04:39 02/10/23 04:39 A&P Assessment and plan (1) Acute respiratory failure with hypoxia and hypercapnia: Continue BiPAP treatment due to ongoing shortness of breath and decrease in oxygen saturations when mask is removed. Will work to discontinue BiPAP as shortness of breath improves. Obtain Non-contrast CT to assess pulmonary edema. Results of CT showed minimal right pleural effusion, with none on the left. Was significant for fluid distention of esophagus and of the stomach, putting the patient at risk for aspiration. NG tube has been ordered. Plan for abdomen and pelvis CT without contrast following this. (2) Acute diastolic heart failure: Maintain current urine catheterization so that pt can urinate in order to compensate for fluid overload. Hold lasix and albumin for now Repeat BMP tomorrow Close follow-up with electrolytes daily in this patient with acute diastolic heart failure and acute kidney injury. (3) Acute kidney injury: Possible HITESH is due to urinary retention. Waiting on urine culture results to assess for UTI as a potential contributer to HITESH. Maintain urinary catheterization to prevent urinary retention that would further kidney injury. Secondary to hematuria, initiate continuous bladder irrigation. BMP daily Renal ultrasound performed yesterday consistent with normal renal ultrasound. CK was not elevated (4) Acute urinary retention: Maintain urinary catheterization to prevent further retention. Initiate Flomax (5) Atrial fibrillation with rapid ventricular response: Continue IV cardizem to normalize rate and rhythm. Taper off as tolerated Continue metoprolol Anticoagulation on hold secondary to hematuria (6) Bilateral pleural effusion: (7) 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: (8) Elevated troponin: Plan Possible UTI. Rocephin changed to Zosyn secondary to concern of aspiration of the right lung. This should cover urinary organisms as well. Await urine culture. History of hyperglycemia with last hemoglobin A1c in October being 6.9%. Initiate mild sliding scale insulin when p.o. is started. Abdominal Distention. Will place NG tube to prevent aspiration. Will consider CT abdomen/pelvis to assess for cause of gastric and esophageal distention after tube placement. Multiple other medical problems as outlined in past medical history Possible right lung pneumonia, aspiration. Placed on Zosyn. Hematuria. Lovenox on hold. Continuous bladder irrigation. Monitor hemoglo bin. Allow natural Lovenox will suffice for DVT prophylaxis Protonix for GI prophylaxis Attestations Medical Necessity Statement*: Needs continued hospital stay secondary to acute respiratory failure, CHF, hematuria, and this patient with gastric distention and colonic distention under investigation. I saw this patient in tandem with the medical student, and reviewed this document and amended it. Critical Care Time: The high probability of a clinically significant, sudden or life threatening deterioration of the patient's [renal, respiratory, GI, infectious disease] system(s) required my full and direct attention, intervention and personal management. The critical care time is as shown. This time is in addition to time spent performing any reported procedures but includes the following: [x] Data and vital sign review and interpretation [x] Patient assessment, examination and intervention [x] Documentation [x] Medication orders and management Critical Care Time (min): 39 Coding Level of Care Code Critical Care >/= 30 minutes Critical care time (in minutes): 39 The high probability of a clinically significant, sudden or life threatening deterioration, as referenced in this documentation, required my full and direct attention, intervention and personal management. The critical care time shown is in addition to time spent performing any reported separately billable procedures and includes the following: [x] Data and vital sign review and interpretation [x ] Patient assessment, examination and intervention [x] Medication orders and management [x] Patient/Family updates as able [x] Care Coordination and Documentation. Diagnoses Acute respiratory failure with hypoxia and hypercapnia J96.01; J96.02 Acute diastolic heart failure I50.31 Acute kidney injury N17.9 Acute urinary retention R33.8 Atrial fibrillation with rapid ventricular response I48.91 Bilateral pleural effusion J90 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 I27.20 Elevated troponin R79.89
--- NOTE | 2023-02-10 10:54 | CT_ITS ---
WS: [id number] CT ABDOMEN AND PELVIS NONCONTRAST HISTORY: possible obstruction TECHNIQUE: Imaging performed through the abdomen and pelvis. Coronal and sagittal reformats are submi tted. All CT scans at [facility] use at least one of these dose optimization techniques: auto mated exposure control; mA and/or kV adjustment per patient size (includes targeted exams where dose is matched to clinical indication); or iterative reconstruction. DLP: 1162.93 mGy.cm COMPARISON: 08/15/2012 Lower thorax: Moderate elevation RIGHT diaphragm. Atelectatic changes at the RIGHT lung base. There is a large defect in the anterior RIGHT diaphragm. Through this defect is herniated hepatic fle xure. The proximal loop of the ascending colon is markedly dilated. The loop of colon within the bhavana ia is dilated also. The distal loop is nondistended. The colon distal is becoming collapsed. There is some air present but the very distal colon is collapsed. There is marked dilatation of the stomach despite the nasogastric tube now present. There is marked s mall bowel dilatation and a sending colon dilatation. There is a small amount of air in the RIGHT didi phragmatic hernia. This may be a small amount of free air but more likely small amount of air entrapp ed within the adjacent atelectatic lung. There is pericolonic fat stranding within the intrathoracic hernia sac. There is mild bulging of soft tissues beyond the chest wall. Liver: Normal size liver. No mass or bile duct dilatation. Gallbladder: Normal gallbladder. No pericholecystic fluid or cholelithiasis. No gallbladder wall thic kening. Pancreas: Normal size and attenuation. Normal pancreatic duct. No pancreatitis or mass. Spleen: Normal. Adrenal glands: Normal. No mass. Right kidney: Well-circumscribed hyperdense mass measuring 2.1 cm superior pole RIGHT kidney. No obst ruction. Left kidney: Normal size kidney with no mass or hydronephrosis. Aorta: Moderate to severe atherosclerosis abdominal aorta. No aneurysm. Atherosclerosis continues int o the common iliac arteries. No free fluid, intraperitoneal air or significant lymphadenopathy. Pelvis: Quintero catheter present in a nondistended urinary bladder. Increased density within urinary bl adder may be due to some blood. There are also prostate gland calcifications. Prostate gland is enlar ged. Air in the urinary bladder from the recent catheterization. Patent, fat-containing inguinal slim ls. Osseous structures: Advanced degenerative changes at the hip joints bilaterally, LEFT greater than RI GHT. IMPRESSION: 1. 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 2. Marked distention of the stomach, small bowel and proximal RIGHT colon with fluid. Loop of hepati c flexure contained within the diaphragmatic hernia is dilated. The distal loop exiting the hernia sa c is nondilated. 3. There is a tiny amount of air within the diaphragmatic hernia. This may be a small amount of free air but more likely entrapped air within the adjacent atelectatic lung. 4. Elevated RIGHT hemidiaphragm 5. Marked cardiac enlargement. 6. Nasogastric tube present within the stomach. Stomach remains markedly distended. 7. Quintero catheter present in the urinary bladder. There is increased density within the urinary blad cullen suggesting blood products in the urinary bladder. 8. Prostate gland enlargement. Notified Alvino Manzo MD at 02/10/2023 11:52 AM.
--- NOTE | 2023-02-10 10:56 | XRR_ITS ---
PROCEDURE INFORMATION: Exam: XR Chest Exam date and time: 02/10/2023 11:03 AM Age: 82 years old Clinical indication: Device placement; Ng tube TECHNIQUE: Imaging protocol: Radiologic exam of the chest. Views: 1 view. COMPARISON: CT chest con [id number] 02/10/2023 9:17 AM FINDINGS: Tubes, catheters and devices: Tip of the NG tube is in the gastric antrum. Lungs: Bilateral lower lung pneumonitis and/or atelectasis. Pleural spaces: Moderate bilateral pleural effusions. Heart/Mediastinum: Moderate cardiomegaly. Bones/joints: Mild scoliosis, moderate multilevel thoracic spondylosis, and thoracic ankylosis. XR/XR chest 1V portable [id number] IMPRESSION: 1. Bilateral lower lung pneumonitis and/or atelectasis with moderate bilateral pleural effusions. 2. Additional details as above.
--- NOTE | 2023-02-10 12:01 | PC.NURSE ---
NG tube inserted per orders. 700ML of brown liquid returned.
[2023-02-10] MEDS: pantoprazole 40 mg SDV IVP (13:15)
[2023-02-10] MEDS: piperacillin-tazobactam 3.375 GM in sodium chloride 0.9% (plus) 50 ML IV (13:16)
--- NOTE | 2023-02-10 16:40 | W.PM.EVENTAC ---
Event Note Event Note: Long discussion with patient earlier regarding finding on CT of abdominal obstruction with chest involvement. Discussed with local surgeon and related that this would be a complicated surgery best done at tertiary care facility. Offered transfer to tertiary care hospital. He refuses treatment and wanted comfort care. Friends who have been family to him were notified. He was alert, oriented and understood that proceeding to no intervention would result in . Confirmed wishes of comfort care in front of multiple witnesses in the ICU including patient nurse and RT. I believe patient is making a reasonable decision regarding this considering his severe aortic stenosis, severe pulmonary hypertension, and now bowel obstruction with chest involvement, resp failure, urinary retention. Orders written.
--- NOTE | 2023-02-10 17:31 | PC.SLP ---
FREIGHT AIR BRAKE FITTER uanble to assess due to the pt's medical condition.
[2023-02-10] MEDS: morphine 4 mg/mL SDV 1 mL IVP ×2 (18:30→22:20)
[2023-02-11] VITALS: BP 74/49; PULSE 89; RESP 31; TEMP 36.6; O2SAT 87
--- NOTE | 2023-02-11 00:34 | PC.NURSE ---
MTS notified, patient is a candidate. MTS will notify Next of Kin & get back with us.
--- NOTE | 2023-02-11 00:43 | PC.NURSE ---
0023 -- Asystole noted on pvc monitor, No respirations noted, unable to obtain blood pressure. No pulse palpated, no heart tones noted. Family friend at bedside with patient. Nurse coating mixer supervisor notified.
--- NOTE | 2023-02-11 01:28 | PC.NURSE ---
Notified Dr. Bill that patient has .
--- NOTE | 2023-02-11 01:30 | PC.NURSE ---
Venkat time [id number]
--- NOTE | 2023-02-11 01:32 | PC.NURSE ---
single hearing aid sent with patient. clothes and cane sent with maxi fernandez
--- NOTE | 2023-02-11 10:11 | PM.DDS ---
Discharge Providers DDS Date of Admission: 02/09/23 12:18 Date Summary Completed: 02/11/23 Attending Provider at Admission: Alvino Manzo MD Time of : 00: Attending Provider at Discharge: Alvino Manzo MD Primary Care Provider: Nell Menedz MD Diagnoses Hospital Diagnoses (1) Acute respiratory failure with hypoxia and hypercapnia: (2) Acute diastolic heart failure: (3) Acute kidney injury: (4) Acute urinary retention: (5) Atrial fibrillation with rapid ventricular response: (6) Bilateral pleural effusion: (7) 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: (8) Elevated troponin: Reason for Visit Reason for Visit sob Summary Date and Time of Date of : 02/11/23 Time of : 00: Summary Summary: Mr. Joe is an 82-year-old white male with history of severe aortic stenosis and severe pulmonary hypertension who presented to the hospital with shortness of breath, atrial fibrillation with rapid ventricular rate, and a chest x-ray suggestive of bilateral pleural effusions right greater than left. He was diagnosed with acute decompensated heart failure, respiratory failure, acute kidney injury, atrial fibrillation with rapid ventricular response, bilateral effusions, elevated troponin, and was found to have severe urinary retention with placement of catheter. Renal ultrasound was done and demonstrated no obstruction following catheter placement. He was given IV Lasix, BiPAP, and placed in the ICU. He had no complaints of abdominal pain, nausea, vomiting on admission. The following day he was still having respiratory difficulty. A CT of his chest was performed to determine if pleural effusion was amenable to thoracentesis, and this led to CT of his abdomen and pelvis without contrast as well. This did show a pleural effusion, mild to moderate. It also showed significant bowel obstruction, with eventration of the diaphragm, transition point in the right colon through the incarcerated hernia, marked distention of the stomach small bowel and right colon, and a tiny amount of air within the diaphragmatic hernia. An NG was placed, which drained stool like material from his stomach, that the patient eventually removed himself. I visited with local surgery, regarding approach to this and they recommended transfer to a tertiary care facility secondary to the complicated nature of the hernia and involvement of the chest. I discussed with the patient the need for surgery, and transfer. I had this discussion after taking him off BiPAP to understand him well, placing him on a sufficient amount of oxygen, and bringing witnesses in the room. He was adamant that he did not want transferred, did not want surgery or any other intervention. He was clear he wanted to be made comfortable, at home if possible. This appears to be consistent with wishes he had in the past. I called his contacts, who report that this decision does not surprise them and would be consistent with his thinking in the past as well. With his desire to progress to comfort measures, he was made comfort and orders for pain control and anxiety were initiated. Contact/friends and acting family were able to be at bedside during this process. Additional Data Advance directives?: No Discharge Plan Discharge Patient Disposition: Condition: Stable Probable Cause of Probable cause of : Cardiac arrest DS Attestations Time Spent in /Discharge Care*: greater than 30 min Quality - AMI: AMI present?: No Quality - Stroke: CVA present?: No Symptom Onset Unknown: No Quality - VTE: VTE present?: No Coding Level of Care Code 71505 Total time (in minutes) for Discharge: 31 Diagnoses Acute respiratory failure with hypoxia and hypercapnia J96.01; J96.02 Acute diastolic heart failure I50.31 Acute kidney injury N17.9 Acute urinary retention R33.8 Atrial fibrillation with rapid ventricular response I48.91 Bilateral pleural effusion J90 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 I27.20 Elevated troponin R79.89
== END 2023-02-11 01:38 | disposition expired | DRG 291 ==
LOC: ER 09:14 → ICU 11:45
PROVIDERS: Internal Medicine; Admitting Provider Internal Medicine; Emergency Provider Family Medicine; PCP Family Medicine; Visit Provider Internal Medicine
DX: I11.0 Hypertensive heart disease with heart failure (principal); I50.33 Acute on chronic diastolic (congestive) heart failure; J96.02 Acute respiratory failure with hypercapnia; J96.01 Acute respiratory failure with hypoxia; N17.9 Acute kidney failure, unspecified; K44.0 Diaphragmatic hernia with obstruction, without gangrene; N39.0 Urinary tract infection, site not specified; I35.0 Nonrheumatic aortic (valve) stenosis; I27.20 Pulmonary hypertension, unspecified; I48.91 Unspecified atrial fibrillation; N40.1 Benign prostatic hyperplasia with lower urinary tract symptoms; R33.8 Other retention of urine; Z51.5 Encounter for palliative care; I46.9 Cardiac arrest, cause unspecified; Z99.81 Dependence on supplemental oxygen; D64.9 Anemia, unspecified; R31.9 Hematuria, unspecified; R73.9 Hyperglycemia, unspecified; Z66 Do not resuscitate; E78.5 Hyperlipidemia, unspecified
CPT/HCPCS: 36415; 36416; 36600; 71045; 71250; 74176; 76770; 80048; 80051; 80053; 81001; 82330; 82550; 82805; 82962; 83605; 83735; 84484; 85007; 85025; 87040; 87086; 93005; 94640; 94660; 96365; 96366; 96367; 96372; 96375; 96376; 99291; C9113; J0696; J1650; J1940; J1956; J2270; J2543; J3490; J7040; J7626; P9046